=== PATIENT | female | born 1940 | race African-American/Black ===

== ENCOUNTER 2020-10-07 03:23 | Inpatient (IN) | payer MEDICARE, MEDICAID, SELFPAY ==
[2020-10-07] VITALS (20 sets, daily range): BP systolic 140–163; BP diastolic 50–97; PULSE 64–107; RESP 19–26; TEMP 35.7–37.1; O2SAT 90–98; BMI 38.6
--- NOTE | 2020-10-07 | ECHO_ITS ---
Patient Info Name: Patricia Sequeira Age: 80 years : 1940 Gender: Female Ht: 63 in Wt: 218 lbs BSA: 2.15 m2 HR: 95 bpm BP: 151 / 89 mmHg Heart Rhythm: Sinus Rhythm Technical Quality: Poor Exam Date: 10/07/2020 2:02 PM Exam Location: [facility] Pulmonary Exam Room: ICU 6 Patient Status: Inpatient Admit Date: 10/07/2020 Staff Ordering Physician: aKthy Miranda Competitive Intelligence Manager: Ly Del Cid RDCS Attending Provider: Len Anderson MD Referring Physician: Ruth PRATER; Exam Type: CA echo dop color flow w con Study Info Indications - chf chest pain Complete two-dimensional, color flow and Doppler transthoracic echocardiogram is performed with contrast to opacify the left ventricle and to improve the deliniation of the left ventricle endocardial borders. Contrast/Agitated Saline Contrast/Ag. Saline: Definity Amount: 2.00 ml Administered By: Savana John RN Existing IV Access: Yes IV Access Condition: patent with no signs of infiltration Reason for Poor Study: patient body habitus Summary 1. Technically difficult study with limited views despite definity contrast administration. Regional wall motion assessment limited due to poor endomyocardial border definition in several use, however, no clear focal wall motion abnormalities noted. 2. Left ventricular chamber dimension is normal. 3. Left ventricular systolic function is normal, estimated at 65-70%. 4. There is mildly increased left ventricular wall thickness. 5. There is trace tricuspid valve regurgitation. 6. No pulmonary hypertension, estimated pulmonary arterial systolic pressure is 30 mmHg. 7. There is a small to moderate sized pericardial effusion up to 1.1 cm without tamponade physiology. Fibrinous material is noted within the pericardial space. Left Ventricle Left ventricular chamber dimension is normal. Left ventricular systolic function is normal, estimated at 65-70%. There is mildly increased left ventricular wall thickness. The left ventricular diastolic function is grade I diastolic dysfunction. Technically difficult study with limited views despite definity contrast administration. Regional wall motion assessment limited due to poor endomyocardial border definition in several use, however, no clear focal wall motion abnormalities noted. Right Ventricle Right ventricular chamber dimension is normal. Right ventricular systolic function is normal. Left Atria Left atrial chamber dimension is normal. Right Atria Right atrial chamber dimension is normal. Aortic Valve The aortic valve is not well visualized. There is no aortic valve stenosis. Pulmonic Valve The pulmonic valve is not well visualized. Mitral Valve The mitral valve has not well visualized. Tricuspid Valve The tricuspid valve leaflets are not well visualized. There is trace tricuspid valve regurgitation. No pulmonary hypertension, estimated pulmonary arterial systolic pressure is 30 mmHg. Pericardium/Pleural The pericardium appears normal. There is a small to moderate sized pericardial effusion up to 1.1 cm without tamponade physiology. Fibrinous material is noted within the pericardial space. Inferior Vena Cava Normal inferior vena cava with >50% collapse upon inspiration consistent with normal right atrial pressure, 5 mmHg. Aorta The aortic root size at the sinus of Valsalva is normal. Left Ventricular Outflow Tract
--- NOTE | ~2020-10-07 | XR_ITS ---
EXAMINATION: XR chest 1V portable DATE: 10/07/2020 03:52 INDICATION: Chest pain. TECHNIQUE: A single frontal view of the chest was obtained. COMPARISON: Chest 2 views 01/31/2016 FINDINGS: There is a diffuse interstitial pattern in the lungs, consistent with mild pulmonary edema. No pleural effusion or pneumothorax. The heart size is normal. Widening of the superior mediastinum may be secondary to anteroposterior technique and mediastinal lipomatosis. IMPRESSION: 1. Mild pulmonary edema. Reviewed, dictated and finalized at location A. IMPRESSION: 1. Mild pulmonary edema.
--- NOTE | 2020-10-07 03:30 | ECG_ITS ---
Measurements Intervals [place] Rate: 83 P: 54 CO: 149 QRS: 10 QRSD: 82 T: 25 QT: 378 QTc: 445 Interpretive Statements SINUS RHYTHM BASELINE ARTIFACT- I, III, AVL, V3, V5 NORMAL ECG Electronically Signed On 10-07-2020 6:32:02 CDT by Linwood Botello D.O.
--- NOTE | 2020-10-07 03:31 | ED.CHESTPAIN ---
HPI - Chest Pain General Chief Complaint: Chest Pain Stated Complaint: cp Time Seen by Provider: 10/07/20 03:30 Source: patient Mode of arrival: ambulatory Limitations: no limitations History of Present Illness HPI narrative: Patient is an 80-year-old female complaining of chest pain, midsternal, tightness, 10, nonradiating started approximately 2 hours prior to arrival. Upon arrival to the emergency room patient's chest pain had resolved. Patient denies any shortness of breath, abdominal pain, nausea, vomiting, diaphoresis, fever or chills. Related Data Home Medications Medication Instructions Recorded Confirmed naproxen 500 mg PO BID 10/07/20 pantoprazole 40 mg PO QAM 10/07/20 perphenazine 2 mg PO TID 10/07/20 rosuvastatin mg 10/07/20 Allergies Allergy/AdvReac Type Severity Reaction Status Date / Time Penicillins Allergy Unknown Itching Verified 10/07/20 03:51 Review of Systems Review of Systems: All systems reviewed & are unremarkable except as noted in HPI and below Constitutional: Constitutional: Denies body ache(s), Denies chills, Denies excessive sweating, Denies fatigue, Denies fever(s), Denies headache(s), Denies lethargy, Denies malaise, Denies weakness and Denies weight loss Eyes: Eyes: Denies blurry vision, Denies change in vision and Denies loss of vision ENT: Denies dizziness, Denies ear discharge, Denies headache(s), Denies lip swelling, Denies epistaxis, Denies nasal congestion, Denies neck pain, Denies throat swelling and Denies tongue swelling Cardiovascular: Cardiovascular: Denies diaphoresis, Denies rapid heart rate, Denies edema, Denies irregular heart rhythm, Denies lightheadedness, Denies palpitations, Denies dyspnea and Denies dyspnea on exertion Respiratory: Respiratory: Denies chest congestion, Denies cough, Denies hemoptysis, Denies dyspnea and Denies dyspnea on exertion Gastrointestinal: Gastrointestinal: Denies abdominal pain, Denies melena, Denies hematochezia, Denies diarrhea, Denies nausea, Denies vomiting and Denies hematemesis Musculoskeletal: Musculoskeletal: Denies abnormal gait, Denies deformity, Denies joint swelling, Denies limited range of motion, Denies neck pain and Denies numbness Neurologic: Denies Abnormal speech present, Denies abnormal gait, Denies confusion, Denies dizziness, Denies headache(s), Denies focal weakness, Denies loss of vision, Denies numbness, Denies Other visual disturbances, Denies Sensory deficit (Neuro) and Denies weakness Psychiatric: Psychiatric: Denies confusion, Denies depression, Denies auditory hallucinations, Denies homicidal ideation and Denies suicidal ideation Endocrine: Endocrine: Denies cold intolerance, Denies excessive sweating, Denies fatigue, Denies heat intolerance and Denies palpitations Hematologic/Lymphatic: Hematologic/Lymphatic: Denies easy bleeding and Denies easy bruising Allergic/Immunologic: Allergic/Immunologic: Denies lip swelling, Denies throat swelling and Denies tongue swelling PMFSH Comments Past medical history: Diabetes, CHF, COPD, blindness Family history: Noncontributory Social history: Non-smoker, no EtOH use, lives at home Exam Const: General: cooperative, healthy appearing, comfortable, no acute distress, well developed, alert and awake; No confusion Orientation/consciousness: oriented to person, oriented to place, oriented to time, patient oriented x3 and No confusion Limitations: no limitations HENMT: Head: normal to inspection, normocephalic and atraumatic Ears: hearing grossly normal bilaterally, TM normal on the right and TM normal on the left General nose exam: Normal external nose present, Normal nares present and No nasal discharge present Face and sinus: normal facial exam Mouth: Yes Normal oral and palatal mucosa present, Yes lip normal, Yes tongue normal and Yes oropharynx normal Throat: posterior oropharynx normal, tonsils normal and uvula midline Eyes: General: appearance normal, both eyes
[2020-10-07] MEDS: ASPIRIN 81 MG CHEWABLE TABLET 324 MG PO (03:39)
[2020-10-07] MEDS: NITROGLYCERIN OINTMENT 1 INCH DOSE TRANSDERM (03:40)
[2020-10-07 03:55] LABS: Basophils Percent Auto 0.7 % (0.2-1.2); Eosinophils Absolute Auto 0.2 K/mm3 (0-0.3); Eosinophils Percent Auto 2.6 % (0-4.4); Hematocrit 34.4 % (37.0-47.0); Hemoglobin 10.5 g/dL (12.0-15.0); Immature Granulocyte Absolute 0.02 K/mm3 (0.00-0.031); Immature Granulocyte Percent A 0.3 % (0-0.5); Lymphocytes Absolute Auto 1.44 K/mm3 (0.9-3.2); Lymphocytes Percent Auto 23.4 % (18.3-44.2); Mean Corpuscular HGB Conc 30.5 g/dl (32-36); Mean Corpuscular Hemoglobin 27.1 pg (26-34); Mean Corpuscular Volume 88.7 fl (80-100); Mean Platelet Volume 11.1 fl (7.4-10.4); Monocytes Absolute Auto 0.9 K/mm3 (0.1-0.6); Monocytes Percent Auto 14.6 % (2.6-8.5); Neutrophils Absolute Auto 3.6 K/mm3 (1.3-6.7); Neutrophils Percent Auto 58.4 % (45.5-73.1); Platelet Count Result 267 k/mm3 (150-375); Red Blood Count 3.88 M/mm3 (4.2-5.4); Red Cell Distribution Width 14.9 % (11.5-14.5); White Blood Count 6.2 K/mm3 (4.5-10.0)
[2020-10-07 04:07] LABS: Anion Gap 5 mmol/L (8-16); Blood Urea Nitrogen 18 mg/dL (7-17); Calcium 9.1 mg/dL (8.4-10.2); Carbon Dioxide 31 mmol/L (22-30); Chloride 99 mmol/L (98-107); Estimated CRCL calculation 36 ml/min; Estimated Glomerular Filt Rate 43; Glucose 397 mg/dL (65-105); Potassium 4.3 mmol/L (3.4-5.0); Sodium 135 mmol/L (137-145)
[2020-10-07 04:16] LABS: INR 0.9; Prothrombin Time 12.5 Seconds (11.1-14.7)
[2020-10-07 04:17] LABS: Partial Thromboplastin Time 27.7 SECONDS (22.3-36.8)
[2020-10-07 04:20] LABS: NT Pro B Type Natriuretic Pept 56 pg/mL (5-100); Troponin I < 0.012 ng/mL (0.000-0.034)
--- NOTE | 2020-10-07 06:45 | ADMGEN ---
This patient, Patricia Sequeira, was admitted to Intensive Care Unit-6 on 10/08/2019 at 0635. Patient/family oriented to hospital policies and general routines including ID bracelet, bed and alarms, visiting hours, pain management, procedures, bathroom and other care routines, personal items, smoking policy, room service/diet, and visiting hours. Information on how to activate the Rapid Response Team has been discussed. Patient/Family are encouraged to report perceived risks to care and to ask questions if they do not understand what they are told or what they should do.
[2020-10-07 07:15] LABS: Troponin I < 0.012 ng/mL (0.000-0.034)
[2020-10-07 08:14] LABS: Glucose Point of Care 367 mg/dl (65-105)
[2020-10-07] MEDS: INSULIN ASPART (*BKC) 100 UNITS/ML 8 UNITS SUB-Q (09:23)
[2020-10-07 09:49] LABS: Troponin I < 0.012 ng/mL (0.000-0.034)
--- NOTE | 2020-10-07 10:31 | PM.CNCAR ---
Assessment and Plan Assessment and plan (1) Chest pain: Qualifiers: Chest pain type: unspecified Qualified Code(s): R07.9 - Chest pain, unspecified Code(s): R07.9 - Chest pain, unspecified Status: Acute Assessment and Plan: Her chest pain symptoms are atypical. EKG reviewed and analyzed - did not show any significant pathology, negative serial troponins indicate that this chest pain is likely not related to ACS. She is not experiencing any chest pain at this time. Will review echocardiogram. She should follow up as an outpatient with her patient navigator Dr. Wilson. Discharge disposition per primary service. (2) Hyperglycemia due to type 2 diabetes mellitus: Qualifiers: Diabetes mellitus fdc insulin use: unspecified buttermilk drier operator insulin use status Qualified Code(s): E11.65 - Type 2 diabetes mellitus with hyperglycemia Code(s): E11.65 - Type 2 diabetes mellitus with hyperglycemia Status: Acute Assessment and Plan: Blood glucose remains elevated at 367 this morning. Per the daughter's report her hemoglobin A1c is ?all over the place? indicating that her diabetes is poorly controlled and stating her last hemoglobin A1c was in the 's. Management per primary team. (3) Congestive heart failure (CHF): Qualifiers: Heart failure chronicity: unspecified Heart failure type: unspecified Qualified Code(s): I50.9 - Heart failure, unspecified Code(s): I50.9 - Heart failure, unspecified Status: Acute Assessment and Plan: Diagnosis per report of patient's daughter. Uncertain of the etiology or severity of this problem. She does not have any clinical signs of CHF exacerbation at this time aside from reported increased shortness of breath with exertion. Unsure if this is related to her chronic lung disease or congestive heart failure. Will order a echocardiogram to assess heart function. 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 Quit in 2019. Oxygen saturation 90% on 2L O2. Wears CPAP at night. History of Present Illness History of Present Illness Consult date/time: 10/07/20 10:31 Cardiology consult at the request of Dr. Velasquez for our opinion regarding chest pain. Patient is an 80-year-old female with medical history significant for COPD on home O2, diabetes mellitus type 2, congestive heart failure, and total blindness following cataract surgery about 20 years ago. She presented to the emergency department after 2 episodes of chest pain while she was at home lying in bed. She states that each of these episodes lasted for about 15 minutes and resolved without any intervention aside from moving from a lying to a seated position on the edge of the bed. She reports the pain being 6/10 at its worst. She is unable to give descriptors of the pain but states, ?it just hurt real bad.? She states the pain was in her upper left chest and extended to her upper left arm. She says is uncertain if this was gas pain as she has not had a bowel movement in 1 week. She also knows that she had 1 episode similar to this about 1 week ago but did not seek care at that time. Her pain had resolved by the time she presented to the emergency department and has not returned. She denies palpitations, orthopnea, paroxysmal nocturnal dyspnea. She states that she sometimes has swelling in her ankles and feet and she thinks this is associated with high blood glucose levels. She also endorses easy fatigability noting that she becomes short of breath while walking to the bathroom in her house. She states that the shortness of breath has worsened over the past week. Sh
[2020-10-07 12:18] LABS: Glucose Point of Care 378 mg/dl (65-105)
[2020-10-07] MEDS: INSULIN ASPART (*BKC) 100 UNITS/ML SUB-Q ×2 (12:30→16:41)
[2020-10-07] MEDS: PERFLUTREN LIPID MICROSPHERES 1.5 ML VIAL DILUTED TO 10 ML TOTAL VOLUME IV PUSH (14:38)
[2020-10-07 16:19] LABS: Glucose Point of Care 346 mg/dl (65-105)
[2020-10-07] MEDS: PERPHENAZINE 2 MG TABLET PO (16:43)
--- NOTE | 2020-10-07 17:49 | PM.IMHP ---
H&P: HPI History of Present Illness Date/Time: 10/07/20 17:49 Chest pain Chest pain midsternal, tightness, 6/10, nonradiating. Pt states she has a cough and chest pain thinks it was bronchitis, pt has some chest congestion. Pt son has had a URI. Pt is legally blind. H/o COPD on home O2, diabetes mellitus type 2, congestive heart failure, and total blindness following cataract surgery about 20 years ago. Pt had a echo showing - 3. Left ventricular systolic function is normal, estimated at 65-70%. 4. There is mildly increased left ventricular wall thickness. 5. There is trace tricuspid valve regurgitation. 6. No pulmonary hypertension, estimated pulmonary arterial systolic pressure is 30 mmHg. 7. There is a small to moderate sized pericardial effusion up to 1.1 cm without tamponade physiology. PT had CXr shows mild pulmonary edema Chief Complaint: Chest pain Review of Systems Review of Systems: All systems reviewed & are unremarkable except as noted in HPI and below PMFSH Family History Family History Father Cerebrovascular accident Mother Chronic bronchitis Social History Social History Smoking packs per day: 0.5 Smoking cigarettes per day: 10.0 Years smoked: 64 Smoking pack-years: 32.00 Smoking status: Former smoker Smoking end date: 10/07/18 Alcohol intake: never Substance use: never Spiritual care concerns: No Meds Home Medications and Allergies Home Medications Medication Instructions Recorded Confirmed Type albuterol sulfate [Ventolin HFA] 2 puff INHALATION Q4H PRN 10/07/20 10/07/20 History ferrous sulfate 325 mg PO DAILY 10/07/20 10/07/20 History fluticasone furoate-vilanterol 1 inh INHALATION DAILY 10/07/20 10/07/20 History [Breo Ellipta] furosemide 80 mg PO DAILY 10/07/20 10/07/20 History insulin degludec [Tresiba U-100 60 unit SUBCUT HS 10/07/20 10/07/20 History Insulin] insulin lispro [Humalog KwikPen See Rx Instructions .ROUTE .COMPLEX 10/07/20 10/07/20 History Insulin] naproxen 500 mg PO BID PRN 10/07/20 10/07/20 History olmesartan 40 mg PO DAILY 10/07/20 10/07/20 History pantoprazole 40 mg PO QAM 10/07/20 10/07/20 History perphenazine 2 mg PO TID 10/07/20 10/07/20 History rosuvastatin 10 mg PO DAILY 10/07/20 10/07/20 History tiotropium bromide [Spiriva with 1 cap INHALATION DAILY 10/07/20 10/07/20 History HandiHaler] Allergies Allergy/AdvReac Type Severity Reaction Status Date / Time Penicillins Allergy Unknown Itching Verified 10/07/20 03:51 Vital Signs Vital Signs - 24 hr 10/07/20 03:24 10/07/20 03:42 10/07/20 03:50 Temperature 36.6 C Pulse Rate 88 96 Respiratory Rate 20 Blood Pressure 157/80 H Pulse Oximetry 94 97 10/07/20 05:09 10/07/20 06:12 10/07/20 06:37 Temperature 36.6 C Pulse Rate 94 97 93 Respiratory Rate 24 H 23 H 26 H Blood Pressure 143/50 H 163/83 H 149/97 H Pulse Oximetry 98 96 94 10/07/20 08:00 10/07/20 10:00 10/07/20 11:35 Temperature 36.6 C Pulse Rate 96 98 71 Respiratory Rate 22 H Blood Pressure 146/68 H Pulse Oximetry 96 95 10/07/20 12:00 10/07/20 14:00 10/07/20 16:00 Temperature 37.1 C 36.6 C Pulse Rate 107 H 95 92 Respiratory Rate 21 H 20 Blood Pressure 151/89 H 158/69 H Pulse Oximetry 96 95 Exam Const: General: well developed Nutritional Appearance: well nourished HENMT: Head: normocephalic Eyes: General: appearance normal, both eyes and all related structures Pupils: Equal, round and reactive pupils present Neck: Neck: supple Chest: Chest palpation & inspection: normal inspection of the chest Resp: Effort & Inspection: normal respiratory effort Auscultation: wheezes and other (Bilateral wheezes ) Cardio: Jugular venous distension: no JVD Rhythm: regular rhythm Heart sounds: S1 normal heart sound present and S2 normal heart sound present GI
[2020-10-07] MEDS: ALBUTEROL SULFATE NEB 2.5 MG/0.5 ML INH INHALATION (19:11)
[2020-10-07] MEDS: INSULIN GLARGINE (*BKC) 100 UNITS/ML 60 UNITS SUB-Q (20:23)
[2020-10-07 20:48] LABS: Glucose Point of Care 408 mg/dl (65-105)
--- NOTE | 2020-10-07 21:15 | PC.NURSE ---
RECEIVED PT FROM ICU PER BED. VOICES NO C/O, O2 6L NC ON
--- NOTE | 2020-10-07 21:19 | PC.NURSE ---
This patient, Patricia Sequeira, was transferred to [facility] on 10/07/20 at 2119. Personal belongings sent with patient. Report given to Accepting RN. Appropriate documentation sent with patient.
[2020-10-08] VITALS (17 sets, daily range): BP systolic 115–135; BP diastolic 54–75; PULSE 86–109; RESP 18–24; TEMP 36.1–36.5; O2SAT 88–100
[2020-10-08] MEDS: ALBUTEROL SULFATE NEB 2.5 MG/0.5 ML INH INHALATION ×4 (02:45→20:04)
[2020-10-08 07:51] LABS: Glucose Point of Care 293 mg/dl (65-105)
[2020-10-08] MEDS: INSULIN ASPART (*BKC) 100 UNITS/ML SUB-Q ×3 (08:40→12:03)
[2020-10-08] MEDS: FERROUS SULFATE 324 MG TABLET PO (08:45)
[2020-10-08] MEDS: OLMESARTAN MEDOXOMIL 20 MG TABLET 40 MG PO (08:45)
[2020-10-08] MEDS: FUROSEMIDE 80 MG TABLET PO (08:45)
[2020-10-08] MEDS: PERPHENAZINE 2 MG TABLET PO ×3 (08:46→17:24)
[2020-10-08] MEDS: PANTOPRAZOLE 40 MG TABLET PO (08:46)
[2020-10-08] MEDS: ROSUVASTATIN 10 MG TABLET PO (08:46)
[2020-10-08] MEDS: predniSONE 10 MG TABLET PO (08:46)
--- NOTE | 2020-10-08 09:20 | PM.PNCARD ---
Progress Note: A&P Assessment and Plan (1) Chest pain: Qualifiers: Chest pain type: unspecified Qualified Code(s): R07.9 - Chest pain, unspecified Code(s): R07.9 - Chest pain, unspecified Status: Acute Assessment and Plan: Her chest pain symptoms are atypical. EKG reviewed and analyzed - did not show any significant pathology, negative serial troponins indicate that this chest pain is likely not related to ACS. She is not experiencing any chest pain at this time. No indication for further ischemic workup at this time. Echocardiogram from 10/07/2020 reviewed. She should follow up as an outpatient with her rate clerk passenger Dr. Wilson. Discharge disposition per primary service. (2) Hyperglycemia due to type 2 diabetes mellitus: Qualifiers: Diabetes mellitus director long term care insulin use: unspecified director long term care insulin use status Qualified Code(s): E11.65 - Type 2 diabetes mellitus with hyperglycemia Code(s): E11.65 - Type 2 diabetes mellitus with hyperglycemia Status: Acute Assessment and Plan: Management per primary team. (3) Congestive heart failure (CHF): Qualifiers: Heart failure chronicity: unspecified Heart failure type: unspecified Qualified Code(s): I50.9 - Heart failure, unspecified Code(s): I50.9 - Heart failure, unspecified Status: Acute Assessment and Plan: Diagnosis per report of patient's daughter. Uncertain of the etiology or severity of this problem. She does not have any clinical signs of CHF exacerbation at this time aside from reported increased shortness of breath with exertion. Unsure if this is related to her chronic lung disease or congestive heart failure. Will order a echocardiogram to assess heart function. She does not exhibit any clinical signs of heart failure. Echocardiogram from 10/07/2020 showed normal left ventricular systolic function with an ejection fraction estimated at 65 to 70%. She is to follow up with her rate clerk passenger as an outpatient. (4) COPD (chronic obstructive pulmonary disease): Qualifiers: COPD type: unspecified COPD Qualified Code(s): J44.9 - Chronic obstructive pulmonary disease, unspecified Code(s): J44.9 - Chronic obstructive pulmonary disease, unspecified Status: Acute Assessment and Plan: Oxygen saturation 95% on 2L O2. Wears CPAP at night. Management per primary service. Subjective Date/time seen: Date of service 05/21/21 09:20: Patient is sitting up in the chair eating breakfast at the time of exam. She appears comfortable. Patient states she is feeling well today and denies any complaints aside from some nasal congestion. She denies any chest pain, palpitations, orthopnea, swelling. Review of Systems Constitutional: Constitutional: Reports as per HPI and Denies difficulty sleeping Eyes: Eyes: Reports as per HPI and Reports no additional eye complaints ENT: Reports as per HPI, Reports nasal congestion, Reports nasal discharge and Denies neck pain Cardiovascular: Cardiovascular: Reports as per HPI, Reports no additional cardiovascular complaints, Denies chest pain, Denies diaphoresis, Denies leg edema, Denies lightheadedness, Denies palpitations and Reports dyspnea on exertion Respiratory: Respiratory: Reports as per HPI, Denies cough, Reports dyspnea on exertion and Reports wheezing Gastrointestinal: Gastrointestinal: Reports as per HPI, Reports no additional gastrointestinal complaints, Denies abdominal pain, Reports constipation, Denies nausea and Denies vomiting Genitourinary: Genitourinary: Reports no additional female genitourinary complaints and Reports as per HPI Musculoskeletal: Musculoskeletal: Reports as per HPI, Denies back pain and Denies neck pain Integumentary/Breasts: Skin/Breast: Reports as per HPI, Denies dry skin, Denies pruritus and Denies wounds Neurologic: Reports as per HPI, Denies Abnormal speech present, Denies beh
[2020-10-08 11:50] LABS: Glucose Point of Care 495 mg/dl (65-105)
--- NOTE | 2020-10-08 12:05 | PM.IMPN ---
Progress Note: A&P Assessment and Plan (1) Chest pain: Qualifiers: Chest pain type: unspecified Qualified Code(s): R07.9 - Chest pain, unspecified Code(s): R07.9 - Chest pain, unspecified Status: Acute Assessment and Plan: Troponin x3 are negative, chest pain appears atypical. Pt seen by cardiology. (2) Hyperglycemia due to type 2 diabetes mellitus: Qualifiers: Diabetes mellitus lobsterman insulin use: unspecified skilled nursing insulin use status Qualified Code(s): E11.65 - Type 2 diabetes mellitus with hyperglycemia Code(s): E11.65 - Type 2 diabetes mellitus with hyperglycemia Status: Acute Assessment and Plan: Continue to watch Sugars Accuchecks, SSI, continue patients own medications (3) Congestive heart failure (CHF): Qualifiers: Heart failure chronicity: unspecified Heart failure type: unspecified Qualified Code(s): I50.9 - Heart failure, unspecified Code(s): I50.9 - Heart failure, unspecified Status: Acute Assessment and Plan: Continue lasix 80 mg po daily, pt seen by cardiology. (4) COPD (chronic obstructive pulmonary disease): Qualifiers: COPD type: unspecified COPD Qualified Code(s): J44.9 - Chronic obstructive pulmonary disease, unspecified Code(s): J44.9 - Chronic obstructive pulmonary disease, unspecified Status: Acute Assessment and Plan: Restart breathing treatments, continue IV abx and low dose steroids for bronchitis. add nasal spray for nasal congestion (5) Sleep apnea: Code(s): G47.30 - Sleep apnea, unspecified Status: Acute Assessment and Plan: Pt uses CPAP at night Subjective Date/time seen: 10/08/20 12:05 Interval history: Pt still complaining of blocked nose and chest congestion, thinks it was bronchitis, pt has some chest congestion. Pt son has had a URI. Pt is legally blind. H/o COPD on home O2, diabetes mellitus type 2, congestive heart failure, and total blindness following cataract surgery about 20 years ago. Pt chest pain not cardiac related. Review of Systems Review of Systems: All systems reviewed & are unremarkable except as noted in HPI and below Exam Const: General: well developed Nutritional Appearance: well nourished HENMT: Head: normocephalic Eyes: General: appearance normal, both eyes and all related structures Pupils: Equal, round and reactive pupils present Neck: Neck: supple Chest: Chest palpation & inspection: normal inspection of the chest Resp: Effort & Inspection: normal respiratory effort Auscultation: wheezes and other (Bilateral wheezes ) Cardio: Jugular venous distension: no JVD Rhythm: regular rhythm Heart sounds: S1 normal heart sound present and S2 normal heart sound present GI: Inspection: normal to inspection Auscultation: normal bowel sounds Skin: General skin exam: normal color and dry skin Neuro: Cranial nerves: Yes CN's II-XII intact bilaterally and Yes Equal, round and reactive pupils present Cognition (Neuro): normal cognition Speech: normal speech Motor exam (neuro): 5/5 motor strength present throughout Extrem: General: normal to inspection Psych: Appearance: grossly normal Mental Status: mental status grossly normal Objective Data Vital Signs Vital Signs: Vital Signs - 24 hr 10/07/20 14:00 10/07/20 16:00 10/07/20 19:12 Temperature 36.6 C Pulse Rate 95 92 92 Respiratory Rate 20 20 Blood Pressure 158/69 H Pulse Oximetry 95 10/07/20 19:21 10/07/20 19:22 10/07/20 20:00 Temperature Pulse Rate 94 92 Respiratory Rate 20 Blood Pressure Pulse Oximetry 93 90 10/07/20 21:14 10/07/20 23:22 10/07/20 23:49 Temperature 35.7 C L Pulse Rate 64 71 73 Respiratory Rate 22 H 19 Blood Pressure 140/58 L Pulse Oximetry 90 92 97 10/07/20 23:54 10/08/20 02:45 10/08/20 02:58 Temperature 35.9 C L Pulse Rate 96 87 86 Respiratory Rate 22 H 22 H 22 H Blood
[2020-10-08 14:20] LABS: Glucose Point of Care > 500 mg/dl (65-105)
[2020-10-08] MEDS: INSULIN ASPART (*BKC) 100 UNITS/ML 10 UNITS SUB-Q ×2 (14:27→16:50)
[2020-10-08 16:28] LABS: Glucose Point of Care 462 mg/dl (65-105)
[2020-10-08 18:40] LABS: Glucose Point of Care 473 mg/dl (65-105)
[2020-10-08] MEDS: INSULIN ASPART (*BKC) 100 UNITS/ML 6 UNITS SUB-Q ×2 (18:55→21:02)
[2020-10-08] MEDS: INSULIN GLARGINE (*BKC) 100 UNITS/ML 65 UNITS SUB-Q (20:42)
[2020-10-08] MEDS: FLUTICASONE PROPIONATE 0.05% NA SPR 16 GM BTL (*BKC) 1 SPRAY NASAL (20:42)
[2020-10-08 21:47] LABS: Glucose Point of Care 455 mg/dl (65-105)
[2020-10-09] VITALS (15 sets, daily range): BP systolic 110–123; BP diastolic 45–50; PULSE 82–94; RESP 16–20; TEMP 35.6–36.1; O2SAT 90–99
[2020-10-09] MEDS: ALBUTEROL SULFATE NEB 2.5 MG/0.5 ML INH INHALATION ×3 (01:16→19:46)
[2020-10-09 05:47] LABS: Glucose Point of Care 308 mg/dl (65-105)
[2020-10-09 08:09] LABS: Glucose Point of Care 301 mg/dl (65-105)
[2020-10-09] MEDS: INSULIN ASPART (*BKC) 100 UNITS/ML SUB-Q ×3 (08:38→17:27)
[2020-10-09] MEDS: PERPHENAZINE 2 MG TABLET PO ×2 (08:42→12:23)
[2020-10-09] MEDS: OLMESARTAN MEDOXOMIL 20 MG TABLET 40 MG PO (08:42)
[2020-10-09] MEDS: FERROUS SULFATE 324 MG TABLET PO (08:42)
[2020-10-09] MEDS: PANTOPRAZOLE 40 MG TABLET PO (08:42)
[2020-10-09] MEDS: FUROSEMIDE 80 MG TABLET PO (08:42)
[2020-10-09] MEDS: ROSUVASTATIN 10 MG TABLET PO (08:43)
[2020-10-09] MEDS: NAPROXEN 500 MG TABLET PO (08:43)
--- NOTE | 2020-10-09 11:16 | PM.IMPN ---
Progress Note: A&P Assessment and Plan (1) Chest pain: Qualifiers: Chest pain type: unspecified Qualified Code(s): R07.9 - Chest pain, unspecified Code(s): R07.9 - Chest pain, unspecified Status: Acute Assessment and Plan: Troponin x3 are negative, chest pain appears atypical. Pt seen by cardiology. (2) Hyperglycemia due to type 2 diabetes mellitus: Qualifiers: Diabetes mellitus longwall foreman insulin use: unspecified longwall foreman insulin use status Qualified Code(s): E11.65 - Type 2 diabetes mellitus with hyperglycemia Code(s): E11.65 - Type 2 diabetes mellitus with hyperglycemia Status: Acute Assessment and Plan: Continue to watch Sugars Accuchecks, SSI, continue patients own medications (3) Congestive heart failure (CHF): Qualifiers: Heart failure chronicity: unspecified Heart failure type: unspecified Qualified Code(s): I50.9 - Heart failure, unspecified Code(s): I50.9 - Heart failure, unspecified Status: Acute Assessment and Plan: Continue lasix 80 mg po daily, pt seen by cardiology. (4) COPD (chronic obstructive pulmonary disease): Qualifiers: COPD type: unspecified COPD Qualified Code(s): J44.9 - Chronic obstructive pulmonary disease, unspecified Code(s): J44.9 - Chronic obstructive pulmonary disease, unspecified Status: Acute Assessment and Plan: Restart breathing treatments, continue IV abx for bronchitis. add nasal spray for nasal congestion (5) Sleep apnea: Code(s): G47.30 - Sleep apnea, unspecified Status: Acute Assessment and Plan: Pt uses CPAP at night Subjective Date/time seen: 10/09/20 11:16 Interval history: Pt still complaining of blocked nose and chest congestion, thinks it was bronchitis, pt has some chest congestion. Pt son has had a URI. Pt is legally blind. H/o COPD on home O2, diabetes mellitus type 2, congestive heart failure, and total blindness following cataract surgery about 20 years ago. Pt chest pain not cardiac related. Pt still wheezy and congested today. Review of Systems Review of Systems: All systems reviewed & are unremarkable except as noted in HPI and below Exam Const: General: well developed Nutritional Appearance: well nourished HENMT: Head: normocephalic Eyes: General: appearance normal, both eyes and all related structures Pupils: Equal, round and reactive pupils present Neck: Neck: supple Chest: Chest palpation & inspection: normal inspection of the chest Resp: Effort & Inspection: normal respiratory effort Auscultation: wheezes and other (Bilateral wheezes ) Cardio: Jugular venous distension: no JVD Rhythm: regular rhythm Heart sounds: S1 normal heart sound present and S2 normal heart sound present GI: Inspection: normal to inspection Auscultation: normal bowel sounds Skin: General skin exam: normal color and dry skin Neuro: Cranial nerves: Yes CN's II-XII intact bilaterally and Yes Equal, round and reactive pupils present Cognition (Neuro): normal cognition Speech: normal speech Motor exam (neuro): 5/5 motor strength present throughout Extrem: General: normal to inspection Psych: Appearance: grossly normal Mental Status: mental status grossly normal Objective Data Vital Signs Vital Signs: Vital Signs - 24 hr 10/08/20 14:36 10/08/20 14:40 10/08/20 16:00 Temperature 36.2 C L Pulse Rate 103 H 100 100 Respiratory Rate 20 20 20 Blood Pressure 115/55 L Pulse Oximetry 98 10/08/20 20:00 10/08/20 20:06 10/08/20 20:07 Temperature Pulse Rate 101 H Respiratory Rate 18 Blood Pressure Pulse Oximetry 98 94 10/08/20 20:18 10/08/20 21:24 10/08/20 22:25 Temperature 36.1 C L Pulse Rate 105 H 98 88 Respiratory Rate 18 20 20 Blood Pressure 123/54 L Pulse Oximetry 99 96 10/09/20 00:00 10/09/20 01:20 10/09/20 01:21 Temperature 36.0 C L Pulse Rate 94 85 85 Respiratory R
[2020-10-09 11:45] LABS: Glucose Point of Care 363 mg/dl (65-105)
[2020-10-09] MEDS: FLUTICASONE PROPIONATE 0.05% NA SPR 16 GM BTL (*BKC) 1 SPRAY NASAL ×2 (12:20→20:35)
--- NOTE | 2020-10-09 15:30 | PCRCNOTE ---
Window of time for administration has passed. See next scheduled administration.
[2020-10-09 16:58] LABS: Glucose Point of Care 301 mg/dl (65-105)
[2020-10-09] MEDS: INSULIN GLARGINE (*BKC) 100 UNITS/ML 65 UNITS SUB-Q (20:35)
[2020-10-09 20:50] LABS: Glucose Point of Care 394 mg/dl (65-105)
[2020-10-10] VITALS (10 sets, daily range): BP systolic 126–127; BP diastolic 48–71; PULSE 74–91; RESP 12–20; TEMP 36.4; O2SAT 93–100
[2020-10-10] MEDS: ALBUTEROL SULFATE NEB 2.5 MG/0.5 ML INH INHALATION ×3 (02:01→13:20)
[2020-10-10 08:14] LABS: Glucose Point of Care 205 mg/dl (65-105)
[2020-10-10] MEDS: FERROUS SULFATE 324 MG TABLET PO (08:49)
[2020-10-10] MEDS: FUROSEMIDE 80 MG TABLET PO (08:49)
[2020-10-10] MEDS: ROSUVASTATIN 10 MG TABLET PO (08:49)
[2020-10-10] MEDS: PANTOPRAZOLE 40 MG TABLET PO (08:49)
[2020-10-10] MEDS: OLMESARTAN MEDOXOMIL 20 MG TABLET 40 MG PO (08:49)
[2020-10-10] MEDS: FLUTICASONE PROPIONATE 0.05% NA SPR 16 GM BTL (*BKC) 1 SPRAY NASAL (08:49)
[2020-10-10] MEDS: PERPHENAZINE 2 MG TABLET PO ×2 (08:49→12:08)
[2020-10-10] MEDS: INSULIN ASPART (*BKC) 100 UNITS/ML SUB-Q ×2 (08:50→11:50)
--- NOTE | 2020-10-10 11:41 | PM.DS ---
DS: Admitting Diagnosis Admitting Diagnosis Admitting Diagnosis: CHEST PAIN DS: Discharge Diagnosis Discharge Diagnosis (1) Chest pain: Qualifiers: Chest pain type: unspecified Qualified Code(s): R07.9 - Chest pain, unspecified Code(s): R07.9 - Chest pain, unspecified Status: Acute Assessment and Plan: Troponin x3 are negative, chest pain appears atypical. Pt seen by cardiology. (2) Hyperglycemia due to type 2 diabetes mellitus: Qualifiers: Diabetes mellitus pathological technician insulin use: unspecified pathological technician insulin use status Qualified Code(s): E11.65 - Type 2 diabetes mellitus with hyperglycemia Code(s): E11.65 - Type 2 diabetes mellitus with hyperglycemia Status: Acute Assessment and Plan: Continue to watch Sugars Accuchecks, SSI, continue patients own medications (3) Congestive heart failure (CHF): Qualifiers: Heart failure chronicity: unspecified Heart failure type: unspecified Qualified Code(s): I50.9 - Heart failure, unspecified Code(s): I50.9 - Heart failure, unspecified Status: Acute Assessment and Plan: Continue lasix 80 mg po daily, pt seen by cardiology. (4) COPD (chronic obstructive pulmonary disease): Qualifiers: COPD type: unspecified COPD Qualified Code(s): J44.9 - Chronic obstructive pulmonary disease, unspecified Code(s): J44.9 - Chronic obstructive pulmonary disease, unspecified Status: Acute Assessment and Plan: Restart breathing treatments, continue IV abx for bronchitis. add nasal spray for nasal congestion. Pt can be discharged on oral doxycycline course. Pt feels better. (5) Sleep apnea: Code(s): G47.30 - Sleep apnea, unspecified Status: Acute Assessment and Plan: Pt uses CPAP at night DS: Summary Hospital Course Hospital Course: Pt still complaining of blocked nose and chest congestion, thinks it was bronchitis, pt has some chest congestion. Pt son has had a URI. Pt is legally blind. H/o COPD on home O2, diabetes mellitus type 2, congestive heart failure, and total blindness following cataract surgery about 20 years ago. Pt chest pain not cardiac related. Pt still wheezy and congested was treated with flonase and iv doxycyline pt feels alot better discharged home. Was started on steroids sugars went up so steroids were stopped sugars are stable on discharge. Time Spent with Patient Time attestation: Total time spent providing and/or coordinating discharge services:40 minutes on the day of discharge Exam Const: General: well developed Nutritional Appearance: well nourished HENMT: Head: normocephalic Eyes: General: appearance normal, both eyes and all related structures Pupils: Equal, round and reactive pupils present Neck: Neck: supple Chest: Chest palpation & inspection: normal inspection of the chest Resp: Effort & Inspection: normal respiratory effort Auscultation: clear to auscultation bilaterally Cardio: Jugular venous distension: no JVD Rhythm: regular rhythm Heart sounds: S1 normal heart sound present and S2 normal heart sound present GI: Inspection: normal to inspection Auscultation: normal bowel sounds Skin: General skin exam: normal color and dry skin Neuro: Cranial nerves: Yes CN's II-XII intact bilaterally and Yes Equal, round and reactive pupils present Cognition (Neuro): normal cognition Speech: normal speech Motor exam (neuro): 5/5 motor strength present throughout Extrem: General: normal to inspection Psych: Appearance: grossly normal Mental Status: mental status grossly normal DS: Data Data Completed and Pending Labs on day of discharge: Labs from last 24 hours 10/10/20 10/09/20 10/09/20 08:10 20:34 16:50 POC Capillary Glucose 205 H 394 H 301 H 10/09/20 11:39 POC Capillary Glucose 363 H Discharge Plan Discharge Attending physician on discharge: Caroline Bryan p
[2020-10-10 11:45] LABS: Glucose Point of Care 309 mg/dl (65-105)
[2020-10-10] MEDS: polyethylene glycoL 3350 17 GM POWD.PACK PO (11:49)
[2020-10-10 12:03] LABS: Anion Gap 3 mmol/L (8-16); Blood Urea Nitrogen 18 mg/dL (7-17); Calcium 9.3 mg/dL (8.4-10.2); Carbon Dioxide 31 mmol/L (22-30); Chloride 97 mmol/L (98-107); Estimated CRCL calculation 42 ml/min; Estimated Glomerular Filt Rate 53; Glucose 347 mg/dL (65-105); Potassium 4.2 mmol/L (3.4-5.0); Sodium 131 mmol/L (137-145)
== END 2020-10-10 14:18 | disposition home or self-care (01) | DRG 192 ==
LOC: ANHED 04:57 → ANHICU 06:01 → ANH2MED 21:10
PROVIDERS: Admitting Provider Internal Medicine; Emergency Provider Emergency Medicine; PCP Internal Medicine Infectious Disease; Visit Provider Family Medicine
DX: J44.0 Chronic obstructive pulmonary disease with (acute) lower respiratory infection (principal); R07.9 Chest pain, unspecified; E11.65 Type 2 diabetes mellitus with hyperglycemia; I50.9 Heart failure, unspecified; H54.7 Unspecified visual loss
CPT/HCPCS: 36415; 71045; 80048; 82948; 83880; 84484; 85025; 85610; 85730; 93005; 94002; 94003; 94640; 96365; 96366; 96375; 99285; A9270; C8929; G0378; J1815; J7512; Q9957

== ENCOUNTER 2020-11-23 17:00 | Emergency (ER) | payer MEDICARE, MEDICAID, SELFPAY ==
--- NOTE | ~2020-11-23 | XR_ITS ---
XR wrist RT min 3V 11/23/2020 17:47 Indication: Right wrist pain after fall out of bed Procedure: 4 Views right wrist Comparison: No prior studies for comparison. Findings: Osteopenia. Mild polyarticular osteoarthritis. No fracture or traumatic malalignment. No fo ernesto soft tissue abnormality. No foreign bodies. Impression: 1: No acute fracture. Reviewed, dictated and finalized at location A. Impression: 1: No acute fracture.
--- NOTE | ~2020-11-23 | XR_ITS ---
XR wrist LT min 3V 11/23/2020 17:47 Indication: Left wrist pain after fall Procedure: 4 views left wrist Comparison: No prior studies for comparison. Findings: Osteopenia. There is a healed fifth metacarpal fracture. Mild polyarticular osteoarthritis. No acute fracture or traumatic malalignment. No foreign bodies. Impression: 1: No acute fracture. Reviewed, dictated and finalized at location A. Impression: 1: No acute fracture.
[2020-11-23 17:25] VITALS: BP 148/74; PULSE 102; RESP 16; TEMP 36.7; O2SAT 100
[2020-11-23 20:16] VITALS: BP 134/72; PULSE 98; RESP 20; TEMP 36.4; O2SAT 100
--- NOTE | 2020-11-23 22:19 | ED.GENADULT ---
HPI - General Adult General Chief complaint: Unspecified Stated complaint: arm swelling Time Seen by Provider: 11/23/20 22:07 Source: patient and family Mode of arrival: ambulatory Limitations: no limitations History of Present Illness HPI narrative: Patient is 80 years old -[place] female presents with wrist pain bilaterally started 2 weeks ago after trying to get up from the floor pushing on her hands to get up. Patient went to [facility] 1 week ago and was diagnosed of arthritis. Patient still not back to normal 100%. Patient denies any fever, chills, nausea, vomiting. Related Data Home Medications Medication Instructions Recorded Confirmed Breo Ellipta 1 inh INHALATION DAILY 10/07/20 10/07/20 Spiriva with HandiHaler 1 cap INHALATION DAILY 10/07/20 10/07/20 Tresiba U-100 Insulin 60 unit SUBCUT HS 10/07/20 10/07/20 albuterol sulfate [Ventolin HFA] 2 puff INHALATION Q4H PRN 10/07/20 10/07/20 ferrous sulfate 325 mg PO DAILY 10/07/20 10/07/20 furosemide 80 mg PO DAILY 10/07/20 10/07/20 insulin lispro [Humalog KwikPen See Rx Instructions .ROUTE .COMPLEX 10/07/20 10/07/20 Insulin] naproxen 500 mg PO BID PRN 10/07/20 10/07/20 olmesartan 40 mg PO DAILY 10/07/20 10/07/20 pantoprazole 40 mg PO QAM 10/07/20 10/07/20 perphenazine 2 mg PO TID 10/07/20 10/07/20 rosuvastatin 10 mg PO DAILY 10/07/20 10/07/20 Allergies Allergy/AdvReac Type Severity Reaction Status Date / Time Penicillins Allergy Unknown Itching Verified 11/23/20 20:20 Review of Systems Review of Systems: Narrative: CONSTITUTIONAL: Denies fever, chills, or sweats. EYES: Denies visual changes, redness, or discharge. ENT: Denies rhinorrhea, congestion, sore throat, or otalgia. CARDIOVASCULAR: Denies chest pain, palpitations, or edema. RESPIRATORY: Denies cough or dyspnea. GASTROINTESTINAL: Denies abdominal pain, nausea, vomiting, or diarrhea. GENITOURINARY: Denies dysuria or hematuria. SKIN: Denies rash or itching. MUSCULOSKELETAL: Denies back pain, joint pain, or myalgia. NEUROLOGIC: Denies headache, numbness, or weakness. PSYCHIATRIC: Denies anxiety or depression. [facility] Family History Family History Father Cerebrovascular accident Mother Chronic bronchitis Social History Social History Smoking packs per day: 0.5 Smoking cigarettes per day: 10.0 Years smoked: 64 Smoking pack-years: 32.00 Smoking status: Former smoker Smoking end date: 10/07/18 Alcohol intake: never Substance use: never Spiritual care concerns: No Exam Narrative: Exam Narrative: General appearance: Well-developed, well-nourished Skin: Normal color Chest and respiratory: Airway patent, no respiratory distress, no accessory muscle use Heart: Regular rate/rhythm Abdomen: Soft, nontender, no organomegaly, quiet bowel sounds Vascular: Normal peripheral pulses, normal capillary refill. Musculoskeletal: Normal range of motion, nontender back, slight painful range of motion of the wrist bilaterally, no swelling, no deformity. Neurologic: Alert and oriented ?3, Course Course Emergency Course: Stable Vital Signs Vital signs: Vital Signs Temperature 36.7 C 11/23/20 17:25 Pulse Rate 102 H 11/23/20 17:25 Respiratory Rate 16 11/23/20 17:25 Blood Pressure 148/74 H 11/23/20 17:25 Pulse Oximetry 100 11/23/20 17:25 Temperature 36.4 C L 11/23/20 20:16 Pulse Rate 98 11/23/20 20:16 Respiratory Rate 20 11/23/20 20:16 Blood Pressure 134/72 11/23/20 20:16 Pulse Oximetry 100 11/23/20 20:16 Medical Decision Making MDM Narrative Medical decision making narra
[2020-11-23 23:03] VITALS: BP 117/65; PULSE 79; RESP 18; O2SAT 98
== END 2020-11-23 23:05 | disposition home or self-care (01) ==
PROVIDERS: Emergency Provider Emergency Medicine; PCP Internal Medicine Infectious Disease
DX: S66.912A Strain of unspecified muscle, fascia and tendon at wrist and hand level, left hand, initial encounter (principal); S63.502A Unspecified sprain of left wrist, initial encounter; S63.501A Unspecified sprain of right wrist, initial encounter; S66.911A Strain of unspecified muscle, fascia and tendon at wrist and hand level, right hand, initial encounter; Z87.891 Personal history of nicotine dependence; Z79.4 Long term (current) use of insulin; M19.032 Primary osteoarthritis, left wrist; M19.031 Primary osteoarthritis, right wrist; M85.88 Other specified disorders of bone density and structure, other site
CPT/HCPCS: 73110; 99284

== ENCOUNTER 2020-12-24 06:03 | Emergency (ER) | payer MEDICARE, MEDICAID, SELFPAY ==
--- NOTE | ~2020-12-24 | CT_ITS ---
EXAMINATION: CT abdomen pelvis wo con, CT lumbar spine wo con DATE: 12/24/2020 06:51 INDICATION: Abdominal distention. Low back pain. TECHNIQUE: Computed tomography (CT) of the abdomen and pelvis was performed without intravenous contr ast. Automated exposure control and iterative reconstruction technique were employed. The dose-length product was 1259.01 mGy-cm. COMPARISON: None FINDINGS: Abdomen and pelvis: Mild dependent atelectasis in the right lower lobe. Heart size is normal. Atherosclerotic coronary ar ramy calcification. No pericardial or pleural effusion. Small sliding-type hiatal hernia. Diffuse hep atic steatosis with small regions of focal fatty sparing. A couple well-defined low-attenuation likel y hepatic cysts or hemangiomas in the right hepatic lobe the larger measuring 2.5 cm. 1.3 cm right ad renal nodule with relatively low-attenuation not absolutely diagnostic suggestive of an statistically most likely to represent an adenoma. Spleen, pancreas, left adrenal gland and right kidney are lizzy l. 1.8 cm left renal cyst. Bladder, uterus and bilateral adnexa are unremarkable. There is mild colon ic diverticulosis with a sigmoid predominance. There is no adjacent inflammatory change to suggest d iverticulitis. Moderate to large amount of colonic stool which could be seen with constipation. Lizzy l small bowel and appendix. No free intraperitoneal gas or fluid. No pathologically enlarged abdomina l or pelvic lymphadenopathy. Lumbar spine: Alignment is normal. Vertebral body heights are normal. Mild disc height loss at L4-L5. The following disc levels are specifically discussed: T11-T12: Disc is mildly bulging. There is mild bilateral facet joint osteoarthritis. There is no neur al foraminal stenosis. There is no central canal stenosis. T12-L1: The disc does not extend beyond the endplate margin. There is mild bilateral facet joint oste oarthritis. There is no neural foraminal stenosis. There is no central canal stenosis. L1-L2: The disc does not extend beyond the endplate margin. There is mild bilateral facet joint osteo arthritis. There is no neural foraminal stenosis. There is no central canal stenosis. L2-L3: Disc is mildly bulging. There is hypertrophy of the ligamentum flavum. There is moderate righ t and mild left facet joint osteoarthritis. There is mild bilateral neural foraminal stenosis. There is mild central canal stenosis. L3-L4: Disc is mildly bulging. There is hypertrophy of the ligamentum flavum. There is mild right an d moderate left facet joint osteoarthritis. There is mild bilateral neural foraminal stenosis. There is mild central canal stenosis. L4-L5: Disc is bulging. There is hypertrophy of the ligamentum flavum. There is moderate to severe bi lateral facet joint osteoarthritis. There is mild left and moderate right neural foraminal stenosis. There is moderate to severe central canal stenosis. L5-S1: The disc does not extend beyond the endplate margin. There is moderate right and severe left f acet joint osteoarthritis. There is minimal bilateral neural foraminal stenosis. There is no central canal stenosis. IMPRESSION: 1. Moderate to large amount of colonic stool which could be seen with constipation. No other acute in tra-abdominal/pelvic process. 2. Diffuse hepatic steatosis. 3. Probable mild degenerative disc disease with moderate to severe facet osteoarthritis in the lower lumbar spine resulting in moderate to severe central canal stenosis at L4-L5. Reviewed, dictated and finalized at location A. IMPRESSION: 1. Moderate to large amount of colonic stool which could be seen with constipat ion. No other acute intra-abdominal/pelvic process. 2. Diffuse hepatic steatosis. 3. Probable mild deg
--- NOTE | 2020-12-24 06:17 | ED.BACK ---
HPI - Back Pain/Injury General Chief Complaint: Unspecified <Dale Badillo MD - Last Filed: 12/24/20 16:32> Stated Complaint: LUMBAR BACK PAIN 02/27 <Dale Badillo MD - Last Filed: 12/24/20 16:32> Time Seen by Provider: 12/24/20 06:17 <Dale Badillo MD - Last Filed: 12/24/20 16:32> History of Present Illness HPI Narrative: 80 yo female w/ h/o DM, COPD presents to the ED for back pain. She has had low back pain since she woke up yesterday. 02/27 in severity. No radiation. Additionally c/o constipation. Unsure whern she last had a bowle movement. No abdominal pain. She also has bilateral wrist pain. She reports that she has previously been seen for this and told that it was arthritis. <Dale Badillo MD - Last Filed: 12/24/20 16:32> Related Data Home Medications: Home Medications Medication Instructions Recorded Confirmed Breo Ellipta 1 inh INHALATION DAILY 10/07/20 10/07/20 Spiriva with HandiHaler 1 cap INHALATION DAILY 10/07/20 10/07/20 Tresiba U-100 Insulin 60 unit SUBCUT HS 10/07/20 10/07/20 albuterol sulfate [Ventolin HFA] 2 puff INHALATION Q4H PRN 10/07/20 10/07/20 ferrous sulfate 325 mg PO DAILY 10/07/20 10/07/20 furosemide 80 mg PO DAILY 10/07/20 10/07/20 insulin lispro [Humalog KwikPen See Rx Instructions .ROUTE .COMPLEX 10/07/20 10/07/20 Insulin] naproxen 500 mg PO BID PRN 10/07/20 10/07/20 olmesartan 40 mg PO DAILY 10/07/20 10/07/20 pantoprazole 40 mg PO QAM 10/07/20 10/07/20 perphenazine 2 mg PO TID 10/07/20 10/07/20 rosuvastatin 10 mg PO DAILY 10/07/20 10/07/20 <Dale Badillo MD - Last Filed: 12/24/20 16:32> Allergies/Adverse Reactions: Allergies Allergy/AdvReac Type Severity Reaction Status Date / Time Penicillins Allergy Unknown Itching Verified 12/24/20 06:44 <Dale Badillo MD - Last Filed: 12/24/20 16:32> Review of Systems Review of Systems: All systems reviewed & are unremarkable except as noted in HPI and below <Dale Badillo MD - Last Filed: 12/24/20 16:32> Constitutional: Constitutional: Denies fever(s) <Dale Badillo MD - Last Filed: 12/24/20 16:32> ENT: Denies dizziness <Dale Badillo MD - Last Filed: 12/24/20 16:32> Cardiovascular: Cardiovascular: Denies chest pain <Dale Badillo MD - Last Filed: 12/24/20 16:32> Respiratory: Respiratory: Denies dyspnea <Dale Badillo MD - Last Filed: 12/24/20 16:32> Gastrointestinal: Gastrointestinal: Reports constipation <Dale Badillo MD - Last Filed: 12/24/20 16:32> Genitourinary: Genitourinary: Denies hematuria and Denies dysuria <Dale Badillo MD - Last Filed: 12/24/20 16:32> Musculoskeletal: Musculoskeletal: Reports back pain <Dale Badillo MD - Last Filed: 12/24/20 16:32> Neurologic: Denies dizziness <Dale Badillo MD - Last Filed: 12/24/20 16:32> [facility] Past Medical History Medical History: Medical History Congestive heart failure (CHF) COPD (chronic obstructive pulmonary disease) Hyperglycemia due to type 2 diabetes mellitus <Dale Badillo MD - Last Filed: 12/24/20 16:32> Family History Family History: Family History Father Cerebrovascular accident Mother Chronic bronchitis <Dale Badillo MD - Last Filed: 12/24/20 16:32> Social History Social History: Social History Smoking packs per day: 0.5 Smoking cigarettes per day: 10.0 Years smoked: 64 Smoking pack-years: 32.00 Smoking status: Former smoker Smoking end date: 10/07/18 Alcohol intake: never Substance use: never Gender identity (if verbalized by the patient): Female Spiritual care concerns: No <Dale Badillo MD - Last Filed: 12/24/20 16:32> Exam Const: General: no acute distress and alert <Dale Badillo,
[2020-12-24 06:22] VITALS: BP 129/70; PULSE 100; RESP 18; TEMP 37.2; O2SAT 94
--- NOTE | 2020-12-24 06:38 | PC.NURSE ---
Pt to CT scan.
[2020-12-24 07:13] VITALS: BP 138/78; PULSE 90; RESP 18; O2SAT 94
--- NOTE | 2020-12-24 07:15 | PC.NURSE ---
Report to SARTHAK Gallagher, to continue care.
[2020-12-24 07:18] LABS: Basophils Percent Auto 0.3 % (0.2-1.2); Eosinophils Percent Auto 0.6 % (0-4.4); Hematocrit 36.5 % (37.0-47.0); Immature Granulocyte Absolute 0.03 K/mm3 (0.00-0.031); Immature Granulocyte Percent A 0.4 % (0-0.5); Lymphocytes Absolute Auto 0.91 K/mm3 (0.9-3.2); Lymphocytes Percent Auto 13.4 % (18.3-44.2); Mean Corpuscular HGB Conc 30.1 g/dl (32-36); Mean Corpuscular Hemoglobin 27.4 pg (26-34); Mean Platelet Volume 11.2 fl (7.4-10.4); Monocytes Absolute Auto 0.8 K/mm3 (0.1-0.6); Monocytes Percent Auto 12.4 % (2.6-8.5); Neutrophils Percent Auto 72.9 % (45.5-73.1); Platelet Count Result 247 k/mm3 (150-375); Red Blood Count 4.01 M/mm3 (4.2-5.4); Red Cell Distribution Width 13.5 % (11.5-14.5); White Blood Count 6.8 K/mm3 (4.5-10.0)
[2020-12-24 07:24] LABS: Alanine Aminotransferase 33 U/L (4-35); Alkaline Phosphatase 116 U/L (38-126); Anion Gap 7 mmol/L (8-16); Aspartate Amino Transferase 28 U/L (14-36); Bilirubin,Total 0.1 mg/dL (0.2-1.3); Blood Urea Nitrogen 17 mg/dL (7-17); Calcium 9.2 mg/dL (8.4-10.2); Carbon Dioxide 30 mmol/L (22-30); Chloride 97 mmol/L (98-107); Estimated CRCL calculation 47 ml/min; Estimated Glomerular Filt Rate > 60; Glucose 366 mg/dL (65-110); Potassium 4.3 mmol/L (3.4-5.0); Sodium 134 mmol/L (137-145)
[2020-12-24 07:27] LABS: INR 0.9; Prothrombin Time 12.2 Seconds (11.1-14.7)
[2020-12-24 07:46] LABS: Add Urine Microscopic? YES; Appearance Urine Clear (Clear); Bilirubin Urine Negative (Negative); Blood Urine Negative (Negative); Color Urine Yellow (Yellow); Glucose Urine UA 3+ mg/dL (Negative); Ketones Urine Negative (Negative); Leukocyte Esterase Ur Negative LEU/UL (Negative); Nitrate Urine Negative (Negative); Protein Urine Negative (Negative); Specific Grav Ur 1.026 (1.001-1.035); Squamous Epithelial Cell Urine Rare /hpf (Few); Urobilinogen Urine Negative mg/dL (<2.0); WBC Urine 0-3 /hpf
[2020-12-24] MEDS: HYDROcodone/acetaminophen (*CRX) 5-325 MG TABLET 1 TAB PO (08:19)
[2020-12-24 09:13] VITALS: BP 118/47; PULSE 91; RESP 14; O2SAT 99
[2020-12-24 10:30] VITALS: BP 110/65; PULSE 95; RESP 14; O2SAT 99
[2020-12-24 11:31] VITALS: BP 118/96; PULSE 83; RESP 14; O2SAT 99
[2020-12-29 11:04] LABS: Glucose Point of Care 348 mg/dl (65-105)
== END 2020-12-24 11:33 | disposition home or self-care (01) ==
PROVIDERS: Emergency Medicine; Emergency Provider Emergency Medicine; PCP Internal Medicine Infectious Disease
DX: M54.5 Low back pain (principal); K59.00 Constipation, unspecified; E11.9 Type 2 diabetes mellitus without complications; J44.9 Chronic obstructive pulmonary disease, unspecified; I50.9 Heart failure, unspecified; Z79.4 Long term (current) use of insulin; Z87.891 Personal history of nicotine dependence; K76.0 Fatty (change of) liver, not elsewhere classified
CPT/HCPCS: 36415; 51701; 72131; 74176; 80053; 81001; 82948; 85025; 85610; 85730; 99284; A9270

== ENCOUNTER 2021-03-03 00:02 | Inpatient (IN) | payer MEDICAID, SELFPAY ==
[2021-03-03] VITALS (12 sets, daily range): BP systolic 112–144; BP diastolic 52–76; PULSE 82–103; RESP 13–27; TEMP 36.3–36.6; O2SAT 92–100; BMI 37.0
--- NOTE | ~2021-03-03 | XR_ITS ---
EXAMINATION: XR chest 1V portable EXAM DATE: 03/03/2021 00:57 INDICATION: Shortness Of Breath TECHNIQUE: Portable AP frontal chest x-ray was obtained. Comparison is made to prior examination from 10/07/2020. FINDINGS: Ill-defined bilateral perihilar airspace disease left greater than right, distribution and appearance most consistent with pulmonary edema. There is cardiomegaly and pulmonary vascular congest ion. Pneumonia not excludable. No pneumothorax. There is aortic arteriosclerosis. There is pulmonary vascular congestion. There is a similar appearance to the airspace disease on prior study in September. IMPRESSION: Findings suspicious for CHF exacerbation. Clinical correlation. Reviewed, dictated and finalized at location A.
--- NOTE | ~2021-03-03 | XR_ITS ---
XR chest 1V portable 03/06/2021 13:56 Indication: Pneumonia. Procedure: AP portable chest Comparison: 03/03/2021 Findings: Hazy diffuse bilateral airspace disease. Cardiomegaly. There is atherosclerosis. No signifi cant pleural effusion or pneumothorax. No acute osseous abnormality. Impression: 1: Hazy diffuse bilateral airspace disease which may represent edema or pneumonia. Reviewed, dictated and finalized at location A. Impression: 1: Hazy diffuse bilateral airspace disease which may represent edema or pneumon ia.
--- NOTE | ~2021-03-03 | CT_ITS ---
EXAMINATION: CTA chest PE abdomen pel EXAM DATE: 03/03/2021 03:25 INDICATION: Dyspnea. TECHNIQUE: Spiral CTA of the chest (pulmonary arteries) was performed with 100 cc Omnipaque 350 intr avenous contrast injection. Images were acquired during the pulmonary arterial phase. Coronal maxi mum intensity projection 3D-reconstructions were created by the technologist on dedicated workstation . Axial, coronal and sagittal reformatted images were reviewed. Spiral CT of the abdomen and pelvis was then performed with the same intravenous contrast injection. Axial, coronal and sagittal reform atted images were reviewed. The dose-length product (DLP) for this examination was 1919.86 mGy-cm. The exposure was tailored according to patient size (auto mA exposure control), and iterative recons truction (ASIR) was used as additional dose reduction technique. Comparison is made to prior examinat ion from 12/24/2020. FINDINGS: CHEST: Pulmonary arteries are well opacified and without intraluminal filling defects. No thoracic aortic dissection. There is a completely collapsed right upper lobe, with fullness to the perihilar region of this appearance most consistent with bronchogenic carcinoma, post obstructive atelectasis. Uncertain how large the underlying likely masses given the associated atelectasis. Left upper lobe a irway is completely occluded, and the pulmonary artery supplying this are narrowed. There is aortopul monary window lymphadenopathy, lymph node measuring 2.8 x 1.3 cm. Lingula may also have complete atel ectasis. There are no pleural or pericardial effusions. There is no pneumothorax. Heart normal in size. There is mild coronary arterial calcification, arterial sclerosis. ABDOMEN PELVIS: There is hepatic steatosis. Right liver lobe hypodensity measuring 3.0 cm, 23 Hounsf [place] units scattered other subcentimeter hypodensities. These could be metastatic lesions or cysts. T here is right adrenal gland lesion measuring 1.4 cm, indeterminate. Gallbladder is unremarkable. No biliary obstruction. Portal and splenic veins are patent. Kidneys enhance symmetrically. There is no hydronephrosis. The uterus is unremarkable. The bladder is unremarkable. There is no retrope ritoneal or pelvic lymphadenopathy. There is mild to moderate scattered arteriosclerotic disease. There are no findings to suggest appendicitis. There is small sliding gastroesophageal hiatal hernia . There is expected amount of colonic stool. No free intraperitoneal gas. There are no osteoblas tic or osteolytic lesions identified. IMPRESSION: 1. Right upper lobe collapse likely from underlying perihilar bronchogenic carcinoma. Recommend bron choscopy. 2. Metastatic mediastinal lymphadenopathy. 3. Liver lesions, could be cyst but metastatic disease not excludable. 4. Indeterminate right adrenal nodule unchanged. Reviewed, dictated and finalized at location A. IMPRESSION: 1. Right upper lobe collapse likely from underlying perihilar bronchogenic car cinoma. Recommend bronchoscopy. 2. Metastatic mediastinal lymphadenopathy. 3. Liver lesions, could be cyst but metastatic disease not excludable. 4. Indeterminate right adrenal nodule unchanged.
--- NOTE | ~2021-03-03 | XR_ITS ---
XR chest 1V portable 03/07/2021 08:03 Indication: Fluid overload. Dyspnea. Procedure: AP portable chest Comparison: Comparison to multiple prior studies sequentially, with oldest reviewed study dated 01/30. Findings: Cardiomegaly. Mild interstitial edema. No pleural effusion or pneumothorax. Severe degenera tive changes of the shoulders. Impression: 1: Cardiomegaly with mild interstitial edema. Reviewed, dictated and finalized at location B. Impression: 1: Cardiomegaly with mild interstitial edema.
--- NOTE | 2021-03-03 00:22 | ED.CHESTPAIN ---
HPI - Chest Pain General Chief Complaint: Chest Pain <Terri Mccracken MD - Last Filed: 03/03/21 02:52> Stated Complaint: CHEST PAIN <Terri Mccracken MD - Last Filed: 03/03/21 02:52> Time Seen by Provider: 03/03/21 00:21 <Terri Mccracken MD - Last Filed: 03/03/21 02:52> Source: patient and EMS <Terri Mccracken MD - Last Filed: 03/03/21 02:52> Mode of arrival: wheelchair <Terri Mccracken MD - Last Filed: 03/03/21 02:52> Limitations: no limitations <Terri Mccracken MD - Last Filed: 03/03/21 02:52> History of Present Illness HPI narrative: Patient is an 81-year-old female with a history of legal blindness, CHF, type 2 diabetes, COPD on 4 L home oxygen, lung cancer, presenting for evaluation of shortness of breath, left-sided chest pain. Patient states that pain has been intermittent in her left chest with radiation into her left neck and back. Patient states pain is severe. Patient denies any worsening dyspnea from baseline; denies nausea, vomiting, fever or chills. Pt also reports left sided abdominal pain which has been intermittent over past 48 hours. Patient reports history of constipation recently. Pt denies leg swelling, palpitations. Pt with COVID Infection in 04/2020. Pt follows at [facility]. <Terri Mccracken MD - Last Filed: 03/03/21 02:52> Related Data Home Medications: Home Medications Medication Instructions Recorded Confirmed Breo Ellipta 1 inh INHALATION DAILY 10/07/20 10/07/20 Spiriva with HandiHaler 1 cap INHALATION DAILY 10/07/20 10/07/20 Tresiba U-100 Insulin 60 unit SUBCUT HS 10/07/20 10/07/20 albuterol sulfate [Ventolin HFA] 2 puff INHALATION Q4H PRN 10/07/20 10/07/20 ferrous sulfate 325 mg PO DAILY 10/07/20 10/07/20 furosemide 80 mg PO DAILY 10/07/20 10/07/20 insulin lispro [Humalog KwikPen See Rx Instructions .ROUTE .COMPLEX 10/07/20 10/07/20 Insulin] naproxen 500 mg PO BID PRN 10/07/20 10/07/20 olmesartan 40 mg PO DAILY 10/07/20 10/07/20 pantoprazole 40 mg PO QAM 10/07/20 10/07/20 perphenazine 2 mg PO TID 10/07/20 10/07/20 rosuvastatin 10 mg PO DAILY 10/07/20 10/07/20 aspirin 81 mg PO DAILY 03/03/21 benztropine 03/03/21 docusate sodium 100 mg PO DAILY 03/03/21 metoprolol succinate PO 03/03/21 <Terri Mccracken MD - Last Filed: 03/03/21 02:52> Allergies/Adverse Reactions: Allergies Allergy/AdvReac Type Severity Reaction Status Date / Time Penicillins Allergy Unknown Itching Verified 03/03/21 00:14 <Terri Mccracken MD - Last Filed: 03/03/21 02:52> Review of Systems Review of Systems: CONSTITUTIONAL: Denies fever, chills, or sweats. EYES: Denies visual changes, redness, or discharge. ENT: Denies rhinorrhea, congestion, sore throat, or otalgia. CARDIOVASCULAR: Reports left sided chest pain, without palpitations or edema RESPIRATORY: Denies worsening cough or dyspnea. GASTROINTESTINAL: Reports abdominal pain, without nausea or vomiting GENITOURINARY: Denies dysuria or hematuria. SKIN: Denies rash or itching. MUSCULOSKELETAL: Denies back pain, joint pain, or myalgia. NEUROLOGIC: Denies headache, numbness, or weakness. <Terri Mccracken MD - Last Filed: 03/03/21 02:52> [facility] Past Medical History Medical History: Medical History (Updated 03/03/21 @ 04:54 by Elias Grijalva MD) Chest pain Congestive heart failure (CHF) COPD (chronic obstructive pulmonary disease) Hyperglycemia due to type 2 diabetes mellitus Sleep apnea <Terri Mccracken MD - Last Filed: 03/03/21 02:52> Family History Family History: Family History Father Cerebrovascular accident Mother Chronic bronchitis <Terri Mccracken MD - Last Filed: 03/03/21 02:52> Social History Social History: Social History Smoking packs per day: 0.5 Smoking cigarettes per day: 10.0 Years smoked: 64 Smoking pac
[2021-03-03 01:00] LABS: Basophils Percent Auto 0.5 % (0.2-1.2); Eosinophils Absolute Auto 0.1 K/mm3 (0-0.3); Eosinophils Percent Auto 1.1 % (0-4.4); Hematocrit 39.6 % (37.0-47.0); Hemoglobin 12.3 g/dL (12.0-15.0); Immature Granulocyte Absolute 0.03 K/mm3 (0.00-0.031); Immature Granulocyte Percent A 0.5 % (0-0.5); Lymphocytes Absolute Auto 1.11 K/mm3 (0.9-3.2); Lymphocytes Percent Auto 17.9 % (18.3-44.2); Mean Corpuscular HGB Conc 31.1 g/dl (32-36); Mean Corpuscular Hemoglobin 29.1 pg (26-34); Mean Corpuscular Volume 93.6 fl (80-100); Monocytes Absolute Auto 0.8 K/mm3 (0.1-0.6); Monocytes Percent Auto 12.9 % (2.6-8.5); Neutrophils Absolute Auto 4.2 K/mm3 (1.3-6.7); Neutrophils Percent Auto 67.1 % (45.5-73.1); Platelet Count Result 262 k/mm3 (150-375); Red Blood Count 4.23 M/mm3 (4.2-5.4); Red Cell Distribution Width 12.8 % (11.5-14.5); White Blood Count 6.2 K/mm3 (4.5-10.0)
[2021-03-03 01:08] LABS: INR 0.9; Prothrombin Time 12.4 Seconds (11.1-14.7)
[2021-03-03 01:09] LABS: Partial Thromboplastin Time 24.7 SECONDS (22.3-36.8)
--- NOTE | 2021-03-03 01:09 | ECG_ITS ---
Measurements Intervals [place] Rate: 101 P: 36 KS: 133 QRS: 2 QRSD: 94 T: 23 QT: 370 QTc: 481 Interpretive Statements SINUS TACHYCARDIA BASELINE ARTIFACT- I, II, III, AVR, AVL, AVF, V1, V3-V6 ABNORMAL ECG Electronically Signed On 03-03-2021 6:30:44 CDT by Linwood Botello D.O.
[2021-03-03 01:17] LABS: Alanine Aminotransferase 58 U/L (4-35); Albumin Level 4.7 g/dL (3.5-5.1); Alkaline Phosphatase 140 U/L (38-126); Anion Gap 12 mmol/L (8-16); Aspartate Amino Transferase 52 U/L (14-36); Bilirubin,Total 0.2 mg/dL (0.2-1.3); Blood Urea Nitrogen 21 mg/dL (7-17); Calcium 9.4 mg/dL (8.4-10.2); Carbon Dioxide 26 mmol/L (22-30); Chloride 100 mmol/L (98-107); Estimated CRCL calculation 44 ml/min; Estimated Glomerular Filt Rate > 60; Glucose 401 mg/dL (65-110); Potassium 4.3 mmol/L (3.4-5.0); Sodium 138 mmol/L (137-145)
[2021-03-03 01:29] LABS: NT Pro B Type Natriuretic Pept 43 pg/mL (5-100); Troponin I < 0.012 ng/mL (0.000-0.034)
[2021-03-03 02:30] LABS: Add Urine Microscopic? YES; Appearance Urine Clear (Clear); Bilirubin Urine Negative (Negative); Blood Urine Negative (Negative); Color Urine Yellow (Yellow); Glucose Urine UA 3+ mg/dL (Negative); Ketones Urine Negative (Negative); Leukocyte Esterase Ur Negative LEU/UL (Negative); Mucus Urine Rare /lpf; Nitrate Urine Negative (Negative); Protein Urine Negative (Negative); RBC Urine 0-2 /hpf (0-2); Specific Grav Ur 1.024 (1.001-1.035); Squamous Epithelial Cell Urine Rare /hpf (Few); Urobilinogen Urine Negative mg/dL (<2.0); WBC Urine 0-3 /hpf
[2021-03-03] MEDS: MORPHINE SULFATE (*CRX) 2 MG/ML INJ IV PUSH (03:24)
[2021-03-03] MEDS: ASPIRIN 81 MG CHEWABLE TABLET 324 MG PO (03:24)
[2021-03-03 04:45] LABS: Troponin I < 0.012 ng/mL (0.000-0.034)
--- NOTE | 2021-03-03 06:43 | ADMGEN ---
This patient, Patricia Sequeira, was admitted to 2 Medical Room 242-01. Patient/family oriented to hospital policies and general routines including ID bracelet, bed and alarms, visiting hours, pain management, procedures, bathroom and other care routines, personal items, smoking policy, room service/diet, and visiting hours. Information on how to activate the Rapid Response Team has been discussed. Patient/Family are encouraged to report perceived risks to care and to ask questions if they do not understand what they are told or what they should do.
[2021-03-03 07:49] LABS: Glucose Point of Care 297 mg/dl (65-105)
--- NOTE | 2021-03-03 08:37 | PM.IMHP ---
H&P: HPI History of Present Illness Date/Time: 03/03/21 08:37 Chief Complaint: Left chest pain Narrative: 81-year-old female with a past medical history of lung cancer, chronic hypoxic respiratory, CHF, and type 2 diabetes mellitus who presented to the ER with left-sided chest pain and left lower quadrant abdominal pain. The patient is only a fair to poor historian. The patient has been having intermittent left chest pain with radiation into her left neck and back. She reports the pain is severe when it occurs. She denies any relieving her eliciting factors. She has not noticed any change in her dyspnea from baseline. She does have known lung cancer and is due to start chemotherapy at [facility] in approximately 7 days. The pain occurred until she arrived in the ER and subsequently resolved. She has not had a recurrence of her chest pain. She does have chronic right upper extremity swelling associated with her cancer. She also has some left lower extremity swelling but not to the same extent. Swelling is unchanged from her baseline. She reports that she uses 2 L nasal cannula during the day and 4 L at night. She also noted some left-sided abdominal pain that is intermittent in nature and is quite severe when it occurs. At its most severe is a 9/10 in intensity. The patient states that she feels like she is constipated. She did have a small bowel movement on the 12th just before start of her abdominal pain. She is unable to tell me if she had any hematochezia or melena due to her chronic blindness. She has intermittent difficulty with urinary incontinence but denies any currently. She denies any dysuria or hematuria. Upon arrival to the ER the patient was satting 88% on room air but patient is on chronic home O2 4 L nasal cannula. On her home oxygen supplementation she was 96%. She did not receive her home long-acting insulin prior to coming to the ER last night. She did not receive her long-acting insulin until after admission this morning. Subsequently her glucoses were up in the 400s. After insulin administration the patient's glucoses have come down to the mid 200s. She denies any nausea or vomiting. She reports a good appetite. She was recently diagnosed with cancer at [facility]. It sounds as if the plan is to treat with palliative radiation therapy. The patient had COVID-19 04/2020. Review of Systems Review of Systems: 12 systems were reviewed with pertinent positives and negatives per HPI. Except as documented in the HPI, all other systems were reviewed and are negative. [facility] Past Medical History Medical History (Updated 03/03/21 @ 23:07 by Mai Zimmer DO) Chronic anemia Congestive heart failure (CHF) COPD (chronic obstructive pulmonary disease) GERD (gastroesophageal reflux disease) Hyperglycemia due to type 2 diabetes mellitus Hyperlipidemia Legally blind Lung cancer Sleep apnea Surgical History Surgical History (Updated 03/03/21 @ 23:01 by Mai Zimmer DO) History of bronchoscopy (~01/2021) Status post cataract surgery Family History Family History Father Cerebrovascular accident Mother Chronic bronchitis Social History Social History (Updated 03/03/21 @ 23:05 by Mai Zimmer DO) Social History: She lives with her son Esteban. As she smoked a half a pack of cigarettes per day from the time she was a teenager until the age of 78. She quit smoking 3 years ago. She denies any significant alcohol use. She denies any illicit substance use. 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 Surrogate decision maker: Esteban (son) and Lisa (daughter) Smoking packs per day: 0.5 Smoking cigarettes per day: 10.0 Years smoked: 64 Smoking pack-years: 32.00 Smoking status: Never smoker Smoking end date: 10/07/18 Alcohol intake: never Substance use: never Gender identity (if verbalized by the patient): Female
[2021-03-03] MEDS: INSULIN ASPART (*BKC) 100 UNITS/ML SUB-Q ×2 (09:11→11:56)
[2021-03-03] MEDS: INSULIN GLARGINE (*BKC) 100 UNITS/ML 30 UNITS SUB-Q (09:13)
[2021-03-03] MEDS: OLMESARTAN MEDOXOMIL 20 MG TABLET 40 MG PO (09:29)
[2021-03-03] MEDS: METOPROLOL SUCCINATE EXT REL 25 MG TABCR PO (09:29)
[2021-03-03] MEDS: FUROSEMIDE 80 MG TABLET PO (09:29)
[2021-03-03] MEDS: PANTOPRAZOLE 40 MG TABLET PO (09:30)
[2021-03-03] MEDS: POTASSIUM CHLORIDE 20 MEQ TABLET.ER PO (09:30)
[2021-03-03] MEDS: PERPHENAZINE 2 MG TABLET PO ×3 (09:30→16:50)
[2021-03-03] MEDS: ASPIRIN 81 MG CHEWABLE TABLET PO (09:30)
[2021-03-03] MEDS: FERROUS SULFATE 324 MG TABLET PO (09:30)
[2021-03-03] MEDS: DOCUSATE SODIUM 100 MG CAPSULE PO (09:30)
[2021-03-03] MEDS: FLUTICASONE PROPIONATE 0.05% NA SPR 16 GM BTL (*BKC) 1 SPRAY NASAL ×2 (09:31→22:09)
[2021-03-03] MEDS: polyethylene glycoL 3350 17 GM POWD.PACK PO (09:31)
[2021-03-03] MEDS: HYDROcodone/acetaminophen (*CRX) 5-325 MG TABLET 1 TAB PO (10:02)
[2021-03-03 11:21] LABS: Glucose Point of Care 375 mg/dl (65-105)
[2021-03-03 12:09] LABS: Troponin I < 0.012 ng/mL (0.000-0.034)
[2021-03-03] MEDS: DOCUSATE SODIUM 400 MG/400 ML ENEMA RECTAL (12:14)
[2021-03-03 16:43] LABS: Glucose Point of Care 444 mg/dl (65-105)
[2021-03-03] MEDS: INSULIN ASPART (*BKC) 100 UNITS/ML 12 UNITS SUB-Q (17:05)
[2021-03-03] MEDS: BENZTROPINE MESYLATE 0.5 MG TABLET PO (22:09)
[2021-03-03] MEDS: SENNA/DOCUSATE SODIUM TABLET 1 TAB PO (22:09)
[2021-03-03] MEDS: INSULIN GLARGINE (*BKC) 100 UNITS/ML 60 UNITS SUB-Q (22:12)
[2021-03-03 22:48] LABS: Glucose Point of Care 285 mg/dl (65-105)
[2021-03-04] VITALS (12 sets, daily range): BP systolic 117–121; BP diastolic 52–63; PULSE 80–100; RESP 14–20; TEMP 36.1–36.5; O2SAT 95–98
[2021-03-04 06:37] LABS: Hematocrit 37.2 % (37.0-47.0); Hemoglobin 11.5 g/dL (12.0-15.0); Mean Corpuscular HGB Conc 30.9 g/dl (32-36); Mean Corpuscular Volume 93.9 fl (80-100); Mean Platelet Volume 12.4 fl (7.4-10.4); Platelet Count Result 237 k/mm3 (150-375); Red Blood Count 3.96 M/mm3 (4.2-5.4); Red Cell Distribution Width 12.5 % (11.5-14.5); White Blood Count 5.1 K/mm3 (4.5-10.0)
[2021-03-04 06:54] LABS: Anion Gap 7 mmol/L (8-16); Blood Urea Nitrogen 18 mg/dL (7-17); Calcium 9.4 mg/dL (8.4-10.2); Carbon Dioxide 30 mmol/L (22-30); Chloride 98 mmol/L (98-107); Estimated CRCL calculation 47 ml/min; Estimated Glomerular Filt Rate > 60; Glucose 374 mg/dL (65-110); Potassium 4.5 mmol/L (3.4-5.0); Sodium 135 mmol/L (137-145)
[2021-03-04 07:54] LABS: Glucose Point of Care 310 mg/dl (65-105)
[2021-03-04] MEDS: INSULIN ASPART (*BKC) 100 UNITS/ML SUB-Q ×2 (07:59→16:28)
[2021-03-04] MEDS: ASPIRIN 81 MG CHEWABLE TABLET PO (08:02)
[2021-03-04] MEDS: DOCUSATE SODIUM 100 MG CAPSULE PO (08:03)
[2021-03-04] MEDS: FLUTICASONE PROPIONATE 0.05% NA SPR 16 GM BTL (*BKC) 1 SPRAY NASAL ×2 (08:03→21:20)
[2021-03-04] MEDS: FERROUS SULFATE 324 MG TABLET PO (08:03)
[2021-03-04] MEDS: FUROSEMIDE 80 MG TABLET PO (08:03)
[2021-03-04] MEDS: METOPROLOL SUCCINATE EXT REL 25 MG TABCR PO (08:03)
[2021-03-04] MEDS: PERPHENAZINE 2 MG TABLET PO ×3 (08:04→16:30)
[2021-03-04] MEDS: OLMESARTAN MEDOXOMIL 20 MG TABLET 40 MG PO (08:04)
[2021-03-04] MEDS: PANTOPRAZOLE 40 MG TABLET PO (08:04)
[2021-03-04] MEDS: POTASSIUM CHLORIDE 20 MEQ TABLET.ER PO (08:05)
[2021-03-04] MEDS: polyethylene glycoL 3350 17 GM POWD.PACK PO (08:05)
[2021-03-04 11:44] LABS: Glucose Point of Care 422 mg/dl (65-105)
[2021-03-04] MEDS: INSULIN ASPART (*BKC) 100 UNITS/ML 10 UNITS SUB-Q (12:06)
--- NOTE | 2021-03-04 15:29 | PM.IMPN ---
Progress Note: A&P Assessment and Plan (1) Chest pain: Qualifiers: Chest pain type: unspecified Qualified Code(s): R07.9 - Chest pain, unspecified Code(s): R07.9 - Chest pain, unspecified Status: Acute (2) Lung cancer: Qualifiers: Laterality: unspecified laterality Lung location: unspecified part of lung Qualified Code(s): C34.90 - Malignant neoplasm of unspecified part of unspecified bronchus or lung Code(s): C34.90 - Malignant neoplasm of unspecified part of unspecified bronchus or lung Status: Inactive (3) Abdominal pain: Qualifiers: Abdominal location: left lower quadrant Qualified Code(s): R10.32 - Left lower quadrant pain Code(s): R10.9 - Unspecified abdominal pain Status: Acute Assessment and Plan: Pain management. (4) Diabetes mellitus with hyperglycemia: Qualifiers: Diabetes mellitus type: type 2 Diabetes mellitus buttermaker continuous churn insulin use: with prison use Qualified Code(s): E11.65 - Type 2 diabetes mellitus with hyperglycemia; Z79.4 - terminal carman (current) use of insulin Code(s): E11.65 - Type 2 diabetes mellitus with hyperglycemia Status: Acute Additional Plan Patient was admitted with chest pain that seems atypical in nature. She had to negative sets of cardiac enzymes. Her chest pain had resolved by when she rib CV the morphine for her abdominal pain. Her chest pain has not recurred. She had a CT of the chest abdomen pelvis which demonstrated right upper lobe collapse likely from underlying perihilar bronchogenic carcinoma for which she already had a prior bronchoscopy at [facility]. She also had metastatic mediastinal lymphadenopathy and liver lesions could be cysts versus metastatic disease. Patient is having unspecific left lower quadrant abdominal pain. She reports that the pain is similar to when she has been constipated previously. She has not had a bowel movement in a couple of days. Colace enema has been ordered. She did have 1 bowel movement after a Colace enema. Pain managemen PRN. Patient had hyperglycemia due to missing her long-acting insulin yesterday. She did receive an additional dose of long-acting insulin this morning at half the dose. She also received a couple doses of NovoLog. Will resume the patient's home dose of long-acting insulin this evening. Her glucoses have improved after insulin administration. Patient has been placed on high-dose sliding scale insulin with Accu-Cheks a.c. HS and hypoglycemia protocol. Will change patient's diet to consistent carbohydrate diet. Patient has been admitted as observation status. Subjective Date/time seen: 03/04/21 11:00 Narrative: 81-year-old female with a past medical history of lung cancer, chronic hypoxic respiratory, CHF, and type 2 diabetes mellitus who presented to the ER with left-sided chest pain and left lower quadrant abdominal pain. Patient was admitted with chest pain that seems atypical in nature. She had to negative sets of cardiac enzymes. Her chest pain had resolved and has not recurred. She had a CT of the chest abdomen pelvis which demonstrated right upper lobe collapse likely from underlying perihilar bronchogenic carcinoma for which she already had a prior bronchoscopy at [facility]. She also had metastatic mediastinal lymphadenopathy and liver lesions could be cysts versus metastatic disease. S: Patient is examined at the bedside; she is feeling a lot better today. she reports left lower quadrant abdominal pain. Review of Systems Review of Systems: All systems reviewed & are unremarkable except as noted in HPI and below Constitutional: Constitutional: Reports no additional constitutional complaints Eyes: Eyes: Reports no additional eye complaints ENT: Reports system reviewed and no additional complaints, except as documented Cardiovascular: Cardiovascular: Reports no additional cardiovascular complaints Respiratory: Respi
[2021-03-04 16:30] LABS: Glucose Point of Care 387 mg/dl (65-105)
[2021-03-04] MEDS: BENZTROPINE MESYLATE 0.5 MG TABLET PO (21:20)
[2021-03-04] MEDS: SENNA/DOCUSATE SODIUM TABLET 1 TAB PO (21:21)
[2021-03-04] MEDS: HYDROcodone/acetaminophen (*CRX) 5-325 MG TABLET 1 TAB PO (21:21)
[2021-03-04] MEDS: INSULIN GLARGINE (*BKC) 100 UNITS/ML 60 UNITS SUB-Q (21:21)
[2021-03-04 21:29] LABS: Glucose Point of Care 448 mg/dl (65-105)
[2021-03-04] MEDS: INSULIN ASPART (*BKC) 100 UNITS/ML 8 UNITS SUB-Q (22:16)
[2021-03-05] VITALS (14 sets, daily range): BP systolic 100–109; BP diastolic 46–60; PULSE 78–109; RESP 18–20; TEMP 36.4–36.6; O2SAT 94–100
[2021-03-05 00:21] LABS: Glucose Point of Care 456 mg/dl (65-105)
[2021-03-05] MEDS: INSULIN ASPART (*BKC) 100 UNITS/ML 12 UNITS SUB-Q ×2 (00:33→22:49)
[2021-03-05 05:46] LABS: Potassium 4.3 mmol/L (3.4-5.0)
[2021-03-05 06:28] LABS: Glucose Point of Care 255 mg/dl (65-105)
[2021-03-05] MEDS: INSULIN ASPART (*BKC) 100 UNITS/ML SUB-Q ×2 (07:40→12:13)
[2021-03-05 07:54] LABS: Glucose Point of Care 269 mg/dl (65-105)
[2021-03-05] MEDS: polyethylene glycoL 3350 17 GM POWD.PACK PO (08:54)
[2021-03-05] MEDS: FLUTICASONE PROPIONATE 0.05% NA SPR 16 GM BTL (*BKC) 1 SPRAY NASAL ×2 (08:54→21:14)
[2021-03-05] MEDS: ASPIRIN 81 MG CHEWABLE TABLET PO (08:55)
[2021-03-05] MEDS: PERPHENAZINE 2 MG TABLET PO ×3 (08:55→18:56)
[2021-03-05] MEDS: OLMESARTAN MEDOXOMIL 20 MG TABLET 40 MG PO (08:55)
[2021-03-05] MEDS: FUROSEMIDE 80 MG TABLET PO (08:55)
[2021-03-05] MEDS: DOCUSATE SODIUM 100 MG CAPSULE PO (08:55)
[2021-03-05] MEDS: PANTOPRAZOLE 40 MG TABLET PO (08:55)
[2021-03-05] MEDS: FERROUS SULFATE 324 MG TABLET PO (08:55)
[2021-03-05] MEDS: METOPROLOL SUCCINATE EXT REL 25 MG TABCR PO (08:56)
[2021-03-05] MEDS: POTASSIUM CHLORIDE 20 MEQ TABLET.ER PO (08:56)
--- NOTE | 2021-03-05 11:08 | PCPTNOTE ---
On 03/05/21, the student, Paul Beyer, provided care and completed [facility] documentation on this patient. I have reviewed the student's documentation and agree with the findings.
[2021-03-05 12:10] LABS: Glucose Point of Care 346 mg/dl (65-105)
[2021-03-05] MEDS: BISACODYL 5 MG TABLET EC 10 MG PO (12:13)
[2021-03-05] MEDS: LACTULOSE 20 GM/30 ML UDC PO (16:07)
[2021-03-05] MEDS: HYDROcodone/acetaminophen (*CRX) 5-325 MG TABLET 1 TAB PO (16:07)
[2021-03-05 17:21] LABS: Glucose Point of Care 404 mg/dl (65-105)
--- NOTE | 2021-03-05 17:48 | PM.IMPN ---
Progress Note: A&P Assessment and Plan (1) Chest pain: Qualifiers: Chest pain type: unspecified Qualified Code(s): R07.9 - Chest pain, unspecified Code(s): R07.9 - Chest pain, unspecified Status: Acute Assessment and Plan: Patient was admitted with chest pain that seems atypical in nature. She had to negative sets of cardiac enzymes. Her chest pain had resolved after she received morphine for her abdominal pain. Her chest pain has not recurred. She had a CT of the chest abdomen pelvis which demonstrated right upper lobe collapse likely from underlying perihilar bronchogenic carcinoma for which she already had a prior bronchoscopy at [place]. She also had metastatic mediastinal lymphadenopathy and liver lesions could be cysts versus metastatic disease. Again chest pain was resolved at the time of my examination. Likely related to recently diagnosed lung cancer. Scheduled for palliative radiation therapy at [facility]. (2) Lung cancer: Qualifiers: Laterality: unspecified laterality Lung location: unspecified part of lung Qualified Code(s): C34.90 - Malignant neoplasm of unspecified part of unspecified bronchus or lung Code(s): C34.90 - Malignant neoplasm of unspecified part of unspecified bronchus or lung Status: Inactive (3) Abdominal pain: Qualifiers: Abdominal location: left lower quadrant Qualified Code(s): R10.32 - Left lower quadrant pain Code(s): R10.9 - Unspecified abdominal pain Status: Acute Assessment and Plan: Patient is having unspecific left lower quadrant abdominal pain. Review of CT scan of abdomen did not reveal any acute issue. She reports that the pain is similar to when she has been constipated previously. She has not had a bowel movement in a couple of days. Colace enema has been ordered. She did have 1 bowel movement after a Colace enema 2 days ago. Pain management. colace, lactulose and miralax given. No bowel movement as of this afternoon. Discharge delayed. (4) Diabetes mellitus with hyperglycemia: Qualifiers: Diabetes mellitus type: type 2 Diabetes mellitus halfway insulin use: with halfway use Qualified Code(s): E11.65 - Type 2 diabetes mellitus with hyperglycemia; Z79.4 - senior care (current) use of insulin Code(s): E11.65 - Type 2 diabetes mellitus with hyperglycemia Status: Acute Assessment and Plan: Patient had hyperglycemia at presentation due to missing her long-acting insulin. She did receive an additional dose of long-acting insulin this morning at half the dose. Currently the patient has been restarted on her home dose of long-acting insulin with a high-dose sliding scale insulin with Accu-Cheks a.c. HS and hypoglycemia protocol. Her accucheck has peaked to 404 today. Aspart 10 units given. Monitor accucheks. Additional Plan Patient has been admitted as observation status. Subjective Date/time seen: 03/05/21 17:48 S : PAtient is examined at the bedside. She reports left lower abdomen pain and constipation. Review of Systems Review of Systems: All systems reviewed & are unremarkable except as noted in HPI and below Constitutional: Constitutional: Reports no additional constitutional complaints Eyes: Eyes: Reports no additional eye complaints ENT: Reports system reviewed and no additional complaints, except as documented Cardiovascular: Cardiovascular: Reports no additional cardiovascular complaints Respiratory: Respiratory: Reports no additional respiratory complaints Gastrointestinal: Gastrointestinal: Reports abdominal pain and Reports constipation Comments: LEft lower quadrant abdominal pain Genitourinary: Genitourinary: Reports no additional female genitourinary complaints Musculoskeletal: Musculoskeletal: Reports no additional musculoskeletal complaints Integumentary/Breasts: Skin/Breast: Reports system reviewed and no additional complaints, ex
[2021-03-05] MEDS: INSULIN ASPART (*BKC) 100 UNITS/ML 10 UNITS SUB-Q (18:56)
[2021-03-05] MEDS: SENNA/DOCUSATE SODIUM TABLET 1 TAB PO (21:14)
[2021-03-05] MEDS: BENZTROPINE MESYLATE 0.5 MG TABLET PO (21:14)
[2021-03-05] MEDS: INSULIN GLARGINE (*BKC) 100 UNITS/ML 60 UNITS SUB-Q (21:17)
[2021-03-05 21:33] LABS: Glucose Point of Care 395 mg/dl (65-105)
[2021-03-06] VITALS (16 sets, daily range): BP systolic 90–108; BP diastolic 50–62; PULSE 87–100; RESP 16–22; TEMP 35.9–36.6; O2SAT 93–98
[2021-03-06 02:05] LABS: Glucose Point of Care 342 mg/dl (65-105)
[2021-03-06] MEDS: INSULIN ASPART (*BKC) 100 UNITS/ML 6 UNITS SUB-Q (02:13)
[2021-03-06 07:48] LABS: Glucose Point of Care 215 mg/dl (65-105)
[2021-03-06] MEDS: ASPIRIN 81 MG CHEWABLE TABLET PO (08:12)
[2021-03-06] MEDS: FERROUS SULFATE 324 MG TABLET PO (08:12)
[2021-03-06] MEDS: METOPROLOL SUCCINATE EXT REL 25 MG TABCR PO (08:12)
[2021-03-06] MEDS: DOCUSATE SODIUM 100 MG CAPSULE PO (08:12)
[2021-03-06] MEDS: FLUTICASONE PROPIONATE 0.05% NA SPR 16 GM BTL (*BKC) 1 SPRAY NASAL ×2 (08:15→21:55)
[2021-03-06] MEDS: OLMESARTAN MEDOXOMIL 20 MG TABLET 40 MG PO (08:15)
[2021-03-06] MEDS: PERPHENAZINE 2 MG TABLET PO ×3 (08:15→17:55)
[2021-03-06] MEDS: PANTOPRAZOLE 40 MG TABLET PO (08:15)
[2021-03-06] MEDS: INSULIN ASPART (*BKC) 100 UNITS/ML SUB-Q (08:16)
[2021-03-06] MEDS: polyethylene glycoL 3350 17 GM POWD.PACK PO (08:16)
[2021-03-06] MEDS: FUROSEMIDE 80 MG TABLET PO (08:16)
[2021-03-06] MEDS: POTASSIUM CHLORIDE 20 MEQ TABLET.ER PO (08:17)
[2021-03-06 09:04] LABS: Hemoglobin 12.4 g/dL (12.0-15.0); Mean Corpuscular HGB Conc 30.2 g/dl (32-36); Mean Corpuscular Hemoglobin 29.2 pg (26-34); Mean Corpuscular Volume 96.5 fl (80-100); Mean Platelet Volume 11.4 fl (7.4-10.4); Platelet Count Result 229 k/mm3 (150-375); Red Blood Count 4.25 M/mm3 (4.2-5.4); Red Cell Distribution Width 12.2 % (11.5-14.5); White Blood Count 5.2 K/mm3 (4.5-10.0)
[2021-03-06 09:18] LABS: Anion Gap 11 mmol/L (8-16); Blood Urea Nitrogen 23 mg/dL (7-17); Calcium 9.7 mg/dL (8.4-10.2); Carbon Dioxide 26 mmol/L (22-30); Chloride 98 mmol/L (98-107); Estimated CRCL calculation 43 ml/min; Estimated Glomerular Filt Rate > 60; Glucose 259 mg/dL (65-110); Potassium 4.3 mmol/L (3.4-5.0); Sodium 135 mmol/L (137-145)
[2021-03-06 11:41] LABS: Glucose Point of Care > 500 mg/dl (65-105)
[2021-03-06] MEDS: INSULIN ASPART (*BKC) 100 UNITS/ML 10 UNITS SUB-Q (12:17)
[2021-03-06 12:20] LABS: Glucose Point of Care > 500 mg/dl (65-105)
[2021-03-06 13:21] LABS: Anion Gap 10 mmol/L (8-16); Blood Urea Nitrogen 27 mg/dL (7-17); Carbon Dioxide 24 mmol/L (22-30); Chloride 95 mmol/L (98-107); Estimated CRCL calculation 39 ml/min; Estimated Glomerular Filt Rate 57; Glucose 640 mg/dL (65-110); Sodium 129 mmol/L (137-145)
--- NOTE | 2021-03-06 14:02 | PM.IMPN ---
Progress Note: A&P Assessment and Plan (1) Lung cancer: Qualifiers: Laterality: unspecified laterality Lung location: unspecified part of lung Qualified Code(s): C34.90 - Malignant neoplasm of unspecified part of unspecified bronchus or lung Code(s): C34.90 - Malignant neoplasm of unspecified part of unspecified bronchus or lung Status: Acute Assessment and Plan: Recently diagnosed lung cancer. Scheduled for palliative radiation therapy at [facility]. (2) Diabetes mellitus with hyperglycemia: Qualifiers: Diabetes mellitus type: type 2 Diabetes mellitus fpc insulin use: with bed bug exterminator use Qualified Code(s): E11.65 - Type 2 diabetes mellitus with hyperglycemia; Z79.4 - termite exterminator (current) use of insulin Code(s): E11.65 - Type 2 diabetes mellitus with hyperglycemia Status: Acute Assessment and Plan: Uncontrolled blood glucose Check BMP, betahydroxybutyrate Patient transferred to ICU Start insulin drip Chemistry every 6 hrs Urinalysis reflex to culture Chest Xray Cardiac monitoring. (3) Abdominal pain: Qualifiers: Abdominal location: left lower quadrant Qualified Code(s): R10.32 - Left lower quadrant pain Code(s): R10.9 - Unspecified abdominal pain Status: Acute Assessment and Plan: Unspecified LLQ pain despite pain management CT scan abdomen without acute findings Somewhat improved after relief of constipation Continue pain management and bowel regimen. (4) Constipation: Code(s): K59.00 - Constipation, unspecified Status: Inactive Assessment and Plan: Continue bowel regimen with colace, miralax and lactulose PRN. (5) Chest pain: Qualifiers: Chest pain type: unspecified Qualified Code(s): R07.9 - Chest pain, unspecified Code(s): R07.9 - Chest pain, unspecified Status: Acute Assessment and Plan: Patient was admitted with chest pain that seems atypical in nature. She had to negative sets of cardiac enzymes. Her chest pain had resolved after she received morphine for her abdominal pain. Her chest pain has not recurred. She had a CT of the chest abdomen pelvis which demonstrated right upper lobe collapse likely from underlying perihilar bronchogenic carcinoma for which she already had a prior bronchoscopy at [place]. She also had metastatic mediastinal lymphadenopathy and liver lesions could be cysts versus metastatic disease. Again chest pain was resolved at the time of my examination. Likely related to recently diagnosed lung cancer. Scheduled for palliative radiation therapy at [facility]. (6) Congestive heart failure (CHF): Qualifiers: Heart failure chronicity: unspecified Heart failure type: unspecified Qualified Code(s): I50.9 - Heart failure, unspecified Code(s): I50.9 - Heart failure, unspecified Status: Acute (7) Legally blind: Code(s): H54.8 - Legal blindness, as defined in [place] Status: Inactive Assessment and Plan: Fall precautions (8) COPD (chronic obstructive pulmonary disease): Qualifiers: COPD type: unspecified COPD Qualified Code(s): J44.9 - Chronic obstructive pulmonary disease, unspecified Code(s): J44.9 - Chronic obstructive pulmonary disease, unspecified Status: Acute Assessment and Plan: currently no active COPD exacerbation Additional Plan Patient has been admitted as observation status. Subjective Date/time seen: 03/06/21 10:02 S : PAtient was examined at the bedside. She had a large bowel movement. She reports LLQ pain. She does not show signs of disctress and was sleeping comfortably when I entered the room. Review of Systems Review of Systems: All systems reviewed & are unremarkable except as noted in HPI and below Constitutional: Constitutional: Reports no additional constitutional complaints Eyes: Eyes: Reports no additional eye complain
[2021-03-06 14:25] LABS: Basophils Percent Auto 0.3 % (0.2-1.2); Eosinophils Absolute Auto 0.1 K/mm3 (0-0.3); Eosinophils Percent Auto 0.9 % (0-4.4); Hematocrit 37.3 % (37.0-47.0); Hemoglobin 11.5 g/dL (12.0-15.0); Immature Granulocyte Absolute 0.02 K/mm3 (0.00-0.031); Immature Granulocyte Percent A 0.3 % (0-0.5); Lymphocytes Absolute Auto 0.94 K/mm3 (0.9-3.2); Lymphocytes Percent Auto 14.8 % (18.3-44.2); Mean Corpuscular HGB Conc 30.8 g/dl (32-36); Mean Corpuscular Volume 94.2 fl (80-100); Monocytes Absolute Auto 0.7 K/mm3 (0.1-0.6); Monocytes Percent Auto 11.2 % (2.6-8.5); Neutrophils Absolute Auto 4.6 K/mm3 (1.3-6.7); Neutrophils Percent Auto 72.5 % (45.5-73.1); Platelet Count Result 237 k/mm3 (150-375); Red Blood Count 3.96 M/mm3 (4.2-5.4); Red Cell Distribution Width 12.2 % (11.5-14.5); White Blood Count 6.4 K/mm3 (4.5-10.0)
[2021-03-06 14:43] LABS: Alanine Aminotransferase 48 U/L (4-35); Albumin Level 4.1 g/dL (3.5-5.1); Alkaline Phosphatase 112 U/L (38-126); Anion Gap 8 mmol/L (8-16); Aspartate Amino Transferase 40 U/L (14-36); Bilirubin,Total 0.1 mg/dL (0.2-1.3); Blood Urea Nitrogen 28 mg/dL (7-17); Calcium 9.2 mg/dL (8.4-10.2); Carbon Dioxide 28 mmol/L (22-30); Chloride 94 mmol/L (98-107); Estimated CRCL calculation 36 ml/min; Estimated Glomerular Filt Rate 52; Magnesium 1.9 mg/dL (1.6-2.3); Potassium 4.9 mmol/L (3.4-5.0); Sodium 130 mmol/L (137-145)
[2021-03-06 14:49] LABS: Glucose 636 mg/dL (65-110)
[2021-03-06 14:53] LABS: Beta-Hydroxybutyrate/Acetoacetate 0.09 mmol/L (0.02-0.27)
[2021-03-06 16:00] LABS: Add Urine Microscopic? YES; Appearance Urine Clear (Clear); Bilirubin Urine Negative (Negative); Blood Urine Negative (Negative); Color Urine Colorless (Yellow); Glucose Urine UA 3+ mg/dL (Negative); Ketones Urine Negative (Negative); Leukocyte Esterase Ur Trace LEU/UL (Negative); Nitrate Urine Negative (Negative); Protein Urine Negative (Negative); Specific Grav Ur 1.011 (1.001-1.035); Squamous Epithelial Cell Urine Occasional /hpf (Few); Urobilinogen Urine Negative mg/dL (<2.0)
[2021-03-06 16:39] LABS: Glucose Point of Care > 500 mg/dl (65-105)
[2021-03-06] MEDS: SODIUM CHLORIDE 0.9% IV 500 ML 999 ML IV CONT (17:55)
[2021-03-06] MEDS: INSULIN ASPART (*BKC) 100 UNITS/ML 20 UNITS SUB-Q (17:55)
[2021-03-06] MEDS: SODIUM CHLORIDE 0.9% IV 1,000 ML 100 ML IV CONT (18:51)
[2021-03-06 19:14] LABS: Glucose Point of Care 437 mg/dl (65-105)
[2021-03-06] MEDS: INSULIN ASPART (*BKC) 100 UNITS/ML 12 UNITS SUB-Q (20:25)
[2021-03-06] MEDS: BENZTROPINE MESYLATE 0.5 MG TABLET PO (21:54)
[2021-03-06] MEDS: SENNA/DOCUSATE SODIUM TABLET 1 TAB PO (21:54)
[2021-03-06] MEDS: INSULIN GLARGINE (*BKC) 100 UNITS/ML 70 UNITS SUB-Q (22:58)
[2021-03-06] MEDS: INSULIN ASPART (*BKC) 100 UNITS/ML 15 UNITS SUB-Q (22:59)
[2021-03-06 23:06] LABS: Glucose Point of Care 457 mg/dl (65-105)
[2021-03-07] VITALS (21 sets, daily range): BP systolic 96–114; BP diastolic 47–60; PULSE 84–99; RESP 14–20; TEMP 36.1–36.5; O2SAT 86–98
[2021-03-07 00:54] LABS: Glucose Point of Care 224 mg/dl (65-105)
[2021-03-07 05:41] LABS: Basophils Percent Auto 0.4 % (0.2-1.2); Eosinophils Absolute Auto 0.1 K/mm3 (0-0.3); Eosinophils Percent Auto 1.2 % (0-4.4); Hematocrit 36.5 % (37.0-47.0); Hemoglobin 11.2 g/dL (12.0-15.0); Immature Granulocyte Absolute 0.03 K/mm3 (0.00-0.031); Immature Granulocyte Percent A 0.4 % (0-0.5); Lymphocytes Absolute Auto 1.17 K/mm3 (0.9-3.2); Lymphocytes Percent Auto 17.1 % (18.3-44.2); Mean Corpuscular HGB Conc 30.7 g/dl (32-36); Mean Corpuscular Volume 94.6 fl (80-100); Mean Platelet Volume 11.6 fl (7.4-10.4); Monocytes Percent Auto 14.2 % (2.6-8.5); Neutrophils Absolute Auto 4.6 K/mm3 (1.3-6.7); Neutrophils Percent Auto 66.7 % (45.5-73.1); Platelet Count Result 231 k/mm3 (150-375); Red Blood Count 3.86 M/mm3 (4.2-5.4); Red Cell Distribution Width 12.2 % (11.5-14.5); White Blood Count 6.8 K/mm3 (4.5-10.0)
[2021-03-07 05:56] LABS: Anion Gap 8 mmol/L (8-16); Blood Urea Nitrogen 21 mg/dL (7-17); Calcium 9.2 mg/dL (8.4-10.2); Carbon Dioxide 29 mmol/L (22-30); Chloride 102 mmol/L (98-107); Estimated CRCL calculation 47 ml/min; Estimated Glomerular Filt Rate > 60; Glucose 191 mg/dL (65-110); Potassium 4.5 mmol/L (3.4-5.0); Sodium 139 mmol/L (137-145)
[2021-03-07 07:38] LABS: Glucose Point of Care 216 mg/dl (65-105)
[2021-03-07] MEDS: POTASSIUM CHLORIDE 20 MEQ TABLET.ER PO (08:44)
[2021-03-07] MEDS: polyethylene glycoL 3350 17 GM POWD.PACK PO (08:44)
[2021-03-07] MEDS: FLUTICASONE PROPIONATE 0.05% NA SPR 16 GM BTL (*BKC) 1 SPRAY NASAL ×2 (08:44→23:21)
[2021-03-07] MEDS: OLMESARTAN MEDOXOMIL 20 MG TABLET 40 MG PO (08:45)
[2021-03-07] MEDS: FUROSEMIDE 80 MG TABLET PO (08:45)
[2021-03-07] MEDS: PERPHENAZINE 2 MG TABLET PO ×3 (08:45→17:30)
[2021-03-07] MEDS: DOCUSATE SODIUM 100 MG CAPSULE PO (08:45)
[2021-03-07] MEDS: ASPIRIN 81 MG CHEWABLE TABLET PO (08:45)
[2021-03-07] MEDS: FERROUS SULFATE 324 MG TABLET PO (08:45)
[2021-03-07] MEDS: METOPROLOL SUCCINATE EXT REL 25 MG TABCR PO (08:45)
[2021-03-07] MEDS: PANTOPRAZOLE 40 MG TABLET PO (08:45)
[2021-03-07] MEDS: INSULIN ASPART (*BKC) 100 UNITS/ML SUB-Q ×3 (09:42→17:31)
--- NOTE | 2021-03-07 10:19 | HOMEO2EVAL ---
Evaluation was performed at [facility] Home Oxygen Evaluation RC: Home Oxygen (O2) Evaluation Start: 03/07/21 06:57 Freq: ONCE Status: Active Protocol: RPE Activity Type Activity Date Activity User E-Sign Co-Sign Detail Recorded Client Recorded Date Recorded By Document 03/07/21 10:06 KRM [email or web address] 03/07/21 10:19 KRM Document 03/07/21 10:07 KRM [email or web address] 03/07/21 10:19 KRM Document 03/07/21 10:12 KRM [email or web address] 03/07/21 10:19 KRM Document 03/07/21 10:15 KRM [email or web address] 03/07/21 10:19 KRM 03/07/21 03/07/21 03/07/21 10:06 10:07 10:12 Home O2 Evaluation Test Phase Resting Resting Resting Oxygen Delivery Room Air Nasal Cannula Nasal Cannula Oxygen Flow Rate (L/min) 1 2 Pulse Oximetry (90-100 %) 87 L 86 L 90 Pulse Rate (60-100 beats/min) 93 94 94 Activity Tolerance Home Oxygen Evaluation Comments Treatment Charges O2 Evaluation - Inpatient 03/07/21 10:15 Home O2 Evaluation Test Phase Exercise Oxygen Delivery Nasal Cannula Oxygen Flow Rate (L/min) 2 Pulse Oximetry (90-100 %) 89 L Pulse Rate (60-100 beats/min) 97 Activity Tolerance Fair Home Oxygen Evaluation Comments 2LPM AT REST AND WITH ACTIVITY. Treatment Charges
--- NOTE | 2021-03-07 10:19 | PCRCNOTE ---
HOME O2 EVALUATION COMPLETE. PT. CURRENTLY WEAR 2LPM AT HOME. HER NEEDS HAVE NOT CHANGED. PT. IS OKAY TO D/C WITH HER CURRENT HOME OXYGEN SETTINGS. IN THE ROOM AND AWARE.
[2021-03-07 11:27] LABS: Glucose Point of Care 346 mg/dl (65-105)
--- NOTE | 2021-03-07 15:25 | PM.IMPN ---
Progress Note: A&P Assessment and Plan (1) Lung cancer: Qualifiers: Laterality: unspecified laterality Lung location: unspecified part of lung Qualified Code(s): C34.90 - Malignant neoplasm of unspecified part of unspecified bronchus or lung Code(s): C34.90 - Malignant neoplasm of unspecified part of unspecified bronchus or lung Status: Acute Assessment and Plan: Recently diagnosed lung cancer. Scheduled for palliative radiation therapy at [facility]. (2) Diabetes mellitus with hyperglycemia: Qualifiers: Diabetes mellitus type: type 2 Diabetes mellitus mcfp insulin use: with exterminator termite use Qualified Code(s): E11.65 - Type 2 diabetes mellitus with hyperglycemia; Z79.4 - exterminator termite (current) use of insulin Code(s): E11.65 - Type 2 diabetes mellitus with hyperglycemia Status: Acute Assessment and Plan: Uncontrolled blood glucose without DKA. Normal bicarbonate. Patient blood sugars improved with IV fluids and subcutaneous doses of insulin. continue high sliding scale Lantuis increased from 60(home dose) units to 70 units. Insulin 15 units TID with meals inaddition to sliding scale Monitor accucheck AC and HS Fastign blood sugar 191; accuchecks in the 216-346 range. Monitor daily hemistry Urinalysis reflex to culture: no UTI Chest Xray: Cardiomegaly with mild interstitial edema. Cardiac monitoring. (3) Abdominal pain: Qualifiers: Abdominal location: left lower quadrant Qualified Code(s): R10.32 - Left lower quadrant pain Code(s): R10.9 - Unspecified abdominal pain Status: Acute Assessment and Plan: Unspecified LLQ pain despite pain management CT scan abdomen without acute findings Somewhat improved after relief of constipation Continue pain management and bowel regimen. (4) Constipation: Code(s): K59.00 - Constipation, unspecified Status: Inactive Assessment and Plan: Continue bowel regimen with colace, miralax and lactulose PRN. (5) Chest pain: Qualifiers: Chest pain type: unspecified Qualified Code(s): R07.9 - Chest pain, unspecified Code(s): R07.9 - Chest pain, unspecified Status: Acute Assessment and Plan: Patient was admitted with chest pain that seems atypical in nature. She had to negative sets of cardiac enzymes. Her chest pain had resolved after she received morphine for her abdominal pain. Her chest pain has not recurred. She had a CT of the chest abdomen pelvis which demonstrated right upper lobe collapse likely from underlying perihilar bronchogenic carcinoma for which she already had a prior bronchoscopy at [place]. She also had metastatic mediastinal lymphadenopathy and liver lesions could be cysts versus metastatic disease. Again chest pain was resolved at the time of my examination. Likely related to recently diagnosed lung cancer. Scheduled for palliative radiation therapy at [facility]. (6) Congestive heart failure (CHF): Qualifiers: Heart failure chronicity: unspecified Heart failure type: unspecified Qualified Code(s): I50.9 - Heart failure, unspecified Code(s): I50.9 - Heart failure, unspecified Status: Acute Assessment and Plan: Patient tolerating laying flat. No shortness of breath. Oxygen requirements at baseline. Hold lasix today and restart in AM. (7) Legally blind: Code(s): H54.8 - Legal blindness, as defined in [place] Status: Inactive Assessment and Plan: Fall precautions (8) COPD (chronic obstructive pulmonary disease): Qualifiers: COPD type: unspecified COPD Qualified Code(s): J44.9 - Chronic obstructive pulmonary disease, unspecified Code(s): J44.9 - Chronic obstructive pulmonary disease, unspecified Status: Acute Assessment and Plan: currently no active COPD exacerbation. O2 requirements checked with respiratory today and appear to be stable.
[2021-03-07 17:07] LABS: Glucose Point of Care 259 mg/dl (65-105)
[2021-03-07] MEDS: INSULIN ASPART (*BKC) 100 UNITS/ML 15 UNITS SUB-Q (17:31)
[2021-03-07] MEDS: BENZTROPINE MESYLATE 0.5 MG TABLET PO (23:21)
[2021-03-07] MEDS: SENNA/DOCUSATE SODIUM TABLET 1 TAB PO (23:21)
[2021-03-07] MEDS: INSULIN GLARGINE (*BKC) 100 UNITS/ML 70 UNITS SUB-Q (23:24)
[2021-03-07 23:31] LABS: Glucose Point of Care 250 mg/dl (65-105)
[2021-03-08] VITALS (7 sets, daily range): BP systolic 111; BP diastolic 50; PULSE 82–96; RESP 16–24; TEMP 36.1; O2SAT 90–98
[2021-03-08 05:46] LABS: Basophils Percent Auto 0.3 % (0.2-1.2); Eosinophils Absolute Auto 0.1 K/mm3 (0-0.3); Eosinophils Percent Auto 1.1 % (0-4.4); Hematocrit 37.6 % (37.0-47.0); Hemoglobin 11.9 g/dL (12.0-15.0); Immature Granulocyte Absolute 0.02 K/mm3 (0.00-0.031); Immature Granulocyte Percent A 0.3 % (0-0.5); Lymphocytes Absolute Auto 1.27 K/mm3 (0.9-3.2); Lymphocytes Percent Auto 19.1 % (18.3-44.2); Mean Corpuscular HGB Conc 31.6 g/dl (32-36); Mean Corpuscular Hemoglobin 29.1 pg (26-34); Mean Corpuscular Volume 91.9 fl (80-100); Mean Platelet Volume 11.4 fl (7.4-10.4); Monocytes Absolute Auto 0.9 K/mm3 (0.1-0.6); Monocytes Percent Auto 13.5 % (2.6-8.5); Neutrophils Absolute Auto 4.4 K/mm3 (1.3-6.7); Neutrophils Percent Auto 65.7 % (45.5-73.1); Platelet Count Result 219 k/mm3 (150-375); Red Blood Count 4.09 M/mm3 (4.2-5.4); Red Cell Distribution Width 12.2 % (11.5-14.5); White Blood Count 6.7 K/mm3 (4.5-10.0)
[2021-03-08 06:15] LABS: Anion Gap 9 mmol/L (8-16); Blood Urea Nitrogen 19 mg/dL (7-17); Calcium 9.5 mg/dL (8.4-10.2); Carbon Dioxide 28 mmol/L (22-30); Chloride 100 mmol/L (98-107); Estimated CRCL calculation 47 ml/min; Estimated Glomerular Filt Rate > 60; Glucose 235 mg/dL (65-110); Potassium 4.3 mmol/L (3.4-5.0); Sodium 137 mmol/L (137-145)
[2021-03-08 07:30] LABS: Glucose Point of Care 202 mg/dl (65-105)
--- NOTE | 2021-03-08 08:47 | PM.IMPN ---
Progress Note: A&P Assessment and Plan (1) Lung cancer: Qualifiers: Laterality: unspecified laterality Lung location: unspecified part of lung Qualified Code(s): C34.90 - Malignant neoplasm of unspecified part of unspecified bronchus or lung Code(s): C34.90 - Malignant neoplasm of unspecified part of unspecified bronchus or lung Status: Acute Assessment and Plan: Recently diagnosed lung cancer. Scheduled for palliative radiation therapy at [facility]. (2) Diabetes mellitus with hyperglycemia: Qualifiers: Diabetes mellitus type: type 2 Diabetes mellitus longterm insulin use: with terminal clerk use Qualified Code(s): E11.65 - Type 2 diabetes mellitus with hyperglycemia; Z79.4 - termite renewal inspector (current) use of insulin Code(s): E11.65 - Type 2 diabetes mellitus with hyperglycemia Status: Acute Assessment and Plan: Uncontrolled blood glucose without DKA. Normal bicarbonate. Patient blood sugars improved with IV fluids and subcutaneous doses of insulin. continue high sliding scale Lantuis increased from 60(home dose) units to 70 units. Insulin 15 units TID with meals inaddition to sliding scale Monitor accucheck AC and HS Fastign blood sugar 191; accuchecks in the 216-346 range. Monitor daily hemistry Urinalysis reflex to culture: no UTI Chest Xray: Cardiomegaly with mild interstitial edema. Cardiac monitoring. (3) Abdominal pain: Qualifiers: Abdominal location: left lower quadrant Qualified Code(s): R10.32 - Left lower quadrant pain Code(s): R10.9 - Unspecified abdominal pain Status: Acute Assessment and Plan: Unspecified LLQ pain despite pain management CT scan abdomen without acute findings Somewhat improved after relief of constipation Continue pain management and bowel regimen. (4) Constipation: Code(s): K59.00 - Constipation, unspecified Status: Inactive Assessment and Plan: Continue bowel regimen with colace, miralax and lactulose PRN. (5) Chest pain: Qualifiers: Chest pain type: unspecified Qualified Code(s): R07.9 - Chest pain, unspecified Code(s): R07.9 - Chest pain, unspecified Status: Acute Assessment and Plan: Patient was admitted with chest pain that seems atypical in nature. She had to negative sets of cardiac enzymes. Her chest pain had resolved after she received morphine for her abdominal pain. Her chest pain has not recurred. She had a CT of the chest abdomen pelvis which demonstrated right upper lobe collapse likely from underlying perihilar bronchogenic carcinoma for which she already had a prior bronchoscopy at [place]. She also had metastatic mediastinal lymphadenopathy and liver lesions could be cysts versus metastatic disease. Again chest pain was resolved at the time of my examination. Likely related to recently diagnosed lung cancer. Scheduled for palliative radiation therapy at [facility]. (6) Congestive heart failure (CHF): Qualifiers: Heart failure chronicity: unspecified Heart failure type: unspecified Qualified Code(s): I50.9 - Heart failure, unspecified Code(s): I50.9 - Heart failure, unspecified Status: Acute Assessment and Plan: Patient tolerating laying flat. No shortness of breath. Oxygen requirements at baseline. Hold lasix today and restart in AM. (7) Legally blind: Code(s): H54.8 - Legal blindness, as defined in [place] Status: Inactive Assessment and Plan: Fall precautions (8) COPD (chronic obstructive pulmonary disease): Qualifiers: COPD type: unspecified COPD Qualified Code(s): J44.9 - Chronic obstructive pulmonary disease, unspecified Code(s): J44.9 - Chronic obstructive pulmonary disease, unspecified Status: Acute Assessment and Plan: currently no active COPD exacerbation. O2 requirements checked with respiratory today and appear to be stable.
[2021-03-08] MEDS: FLUTICASONE PROPIONATE 0.05% NA SPR 16 GM BTL (*BKC) 1 SPRAY NASAL (08:52)
[2021-03-08] MEDS: PERPHENAZINE 2 MG TABLET PO (08:53)
[2021-03-08] MEDS: INSULIN ASPART (*BKC) 100 UNITS/ML SUB-Q (08:53)
[2021-03-08] MEDS: polyethylene glycoL 3350 17 GM POWD.PACK PO (08:53)
[2021-03-08] MEDS: INSULIN ASPART (*BKC) 100 UNITS/ML 15 UNITS SUB-Q (08:53)
[2021-03-08] MEDS: POTASSIUM CHLORIDE 20 MEQ TABLET.ER PO (08:54)
[2021-03-08] MEDS: ASPIRIN 81 MG CHEWABLE TABLET PO (08:54)
[2021-03-08] MEDS: METOPROLOL SUCCINATE EXT REL 25 MG TABCR PO (08:54)
[2021-03-08] MEDS: PANTOPRAZOLE 40 MG TABLET PO (08:54)
[2021-03-08] MEDS: DOCUSATE SODIUM 100 MG CAPSULE PO (08:55)
[2021-03-08] MEDS: FERROUS SULFATE 324 MG TABLET PO (08:55)
[2021-03-08] MEDS: OLMESARTAN MEDOXOMIL 20 MG TABLET 40 MG PO (08:55)
[2021-03-08 11:42] LABS: Glucose Point of Care 288 mg/dl (65-105)
--- NOTE | 2021-03-08 12:39 | PM.DS ---
DS: Admitting Diagnosis Discharge Date 03/08/2021 Admitting Diagnosis Left chest pain DS: Discharge Diagnosis Discharge Diagnosis (1) Lung cancer: Qualifiers: Laterality: unspecified laterality Lung location: unspecified part of lung Qualified Code(s): C34.90 - Malignant neoplasm of unspecified part of unspecified bronchus or lung Code(s): C34.90 - Malignant neoplasm of unspecified part of unspecified bronchus or lung Status: Acute Assessment and Plan: Recently diagnosed lung cancer. Scheduled for palliative radiation therapy already scheduled at [facility]. (2) Diabetes mellitus with hyperglycemia: Qualifiers: Diabetes mellitus buttermilk drier operator insulin use: with assisted use Diabetes mellitus type: type 2 Qualified Code(s): E11.65 - Type 2 diabetes mellitus with hyperglycemia; Z79.4 - jail (current) use of insulin Code(s): E11.65 - Type 2 diabetes mellitus with hyperglycemia Status: Acute Assessment and Plan: Uncontrolled blood glucose without DKA. Patient blood sugars improved with IV fluids and subcutaneous doses of insulin. Home Lantus increased from 60(home dose) units to 70 units. Insulin 15 units TID with meals in addition to sliding scale (3) Abdominal pain: Qualifiers: Abdominal location: left lower quadrant Qualified Code(s): R10.32 - Left lower quadrant pain Code(s): R10.9 - Unspecified abdominal pain Status: Acute Assessment and Plan: Unspecified LLQ pain despite pain management CT scan abdomen without acute findings mild constipation issues. (4) Constipation: Code(s): K59.00 - Constipation, unspecified Status: Inactive Assessment and Plan: Continue bowel regimen with colace, miralax and lactulose PRN. (5) Chest pain: Qualifiers: Chest pain type: unspecified Qualified Code(s): R07.9 - Chest pain, unspecified Code(s): R07.9 - Chest pain, unspecified Status: Acute Assessment and Plan: Patient was admitted with chest pain that seems atypical in nature. She had to negative sets of cardiac enzymes. Her CT of the chest abdomen pelvis which demonstrated right upper lobe collapse likely from underlying perihilar bronchogenic carcinoma for which she already had a prior bronchoscopy at [place]. She also had metastatic mediastinal lymphadenopathy and liver lesions could be cysts versus metastatic disease. (6) Congestive heart failure (CHF): Qualifiers: Heart failure chronicity: unspecified Heart failure type: unspecified Qualified Code(s): I50.9 - Heart failure, unspecified Code(s): I50.9 - Heart failure, unspecified Status: Chronic Assessment and Plan: chronic and stable cont home regime (7) Legally blind: Code(s): H54.8 - Legal blindness, as defined in [place] Status: Inactive Assessment and Plan: Known history of blindness (8) COPD (chronic obstructive pulmonary disease): Qualifiers: COPD type: unspecified COPD Qualified Code(s): J44.9 - Chronic obstructive pulmonary disease, unspecified Code(s): J44.9 - Chronic obstructive pulmonary disease, unspecified Status: Chronic Assessment and Plan: Chronic and stable DS: Summary Hospital Course Hospital Course: 81-year-old female with a past medical history of lung cancer, chronic hypoxic respiratory, CHF, and type 2 diabetes mellitus who presented to the ER with left-sided chest pain and left lower quadrant abdominal pain. The patient is only a fair to poor historian. The patient has been having intermittent left chest pain with radiation into her left neck and back. She reports the pain is severe when it occurs. She denies any relieving her eliciting factors. She has not noticed any change in her dyspnea from baseline. She does have known lung cancer and is due to start chemotherapy at [facility] in approximately 7 days.
== END 2021-03-08 13:57 | disposition home or self-care (01) | DRG 861 ==
LOC: ANHED 04:54 → ANH2MED 06:10
PROVIDERS: Emergency Medicine; Internal Medicine; Admitting Provider Internal Medicine; Emergency Provider Emergency Medicine; PCP Internal Medicine Infectious Disease; Visit Provider Family Medicine
DX: G89.3 Neoplasm related pain (acute) (chronic) (principal); C34.90 Malignant neoplasm of unspecified part of unspecified bronchus or lung; E11.65 Type 2 diabetes mellitus with hyperglycemia; H54.8 Legal blindness, as defined in USA; J44.9 Chronic obstructive pulmonary disease, unspecified; J96.11 Chronic respiratory failure with hypoxia; I50.9 Heart failure, unspecified; C78.1 Secondary malignant neoplasm of mediastinum; G47.30 Sleep apnea, unspecified; K59.00 Constipation, unspecified; E66.01 Morbid (severe) obesity due to excess calories; K21.9 Gastro-esophageal reflux disease without esophagitis; Z79.4 Long term (current) use of insulin; Z99.81 Dependence on supplemental oxygen; Z87.891 Personal history of nicotine dependence; Z68.37 Body mass index [BMI] 37.0-37.9, adult
CPT/HCPCS: 36415; 71045; 71275; 74177; 80048; 80053; 81001; 82010; 82948; 83735; 83880; 84100; 84132; 84484; 85025; 85027; 85610; 85730; 87077; 87086; 87088; 87186; 93005; 94618; 94640; 96361; 96374; 97110; 97161; 97165; 97535; 99285; A9270; G0378; J1815; J2270; J7030; J7040; Q9967

== ENCOUNTER 2021-03-29 19:14 | Emergency (ER) | payer MEDICARE, MEDICAID, SELFPAY ==
--- NOTE | ~2021-03-29 | CT_ITS ---
EXAMINATION: CTA chest PE protocol EXAM DATE: 03/29/2021 21:59 INDICATION: Midsternal chest pain. Stage IV lung cancer. TECHNIQUE: Spiral CTA of the chest (pulmonary arteries) was performed with 100 cc Omnipaque 350 intr avenous contrast injection. Images were acquired during the pulmonary arterial phase. Coronal maxi mum intensity projection 3D-reconstructions were created by the technologist on dedicated workstation . Axial, coronal and sagittal reformatted images were reviewed. The dose-length product (DLP) for t his examination was 735.06 mGy-cm. The exposure was tailored according to patient size (auto mA exp osure control), and iterative reconstruction (ASIR) was used as additional dose reduction technique. Comparison is made to prior examination from 03/03/2021. FINDINGS: The main, central pulmonary arteries are dilated which can indicate elevated pulmonary palak rial pressure, pulmonary arterial hypertension. Pulmonary arteries are well opacified and without in traluminal filling defects. No thoracic aortic dissection. Again there is completely collapsed left upper lobe, occluded left upper lobe segmental bronchus, het erogeneous enhancement of the left upper lobe from malignancy and atelectasis. Again there is patholo gically enlarged aortopulmonary window metastatic lymphadenopathy, region measuring 2.2 x 1.6 cm. Sma ller prevascular metastatic lymph nodes. Mild emphysema. There are no pleural or pericardial effusions. There is no pneumothorax. Heart no rmal in size. There is mild coronary arterial calcification, arterial sclerosis. There is 2.7 cm r ight liver lesion could be cyst but can't exclude metastatic lesion. There is small to moderate slidi ng gastroesophageal hiatal hernia. . There is right adrenal gland 1.5 cm, indeterminate. No osteobl astic or osteolytic lesions identified. IMPRESSION: 1. Left upper lobe malignancy, metastatic mediastinal lymphadenopathy unchanged. 2. Dilated pulmonary arteries without emboli. 3. Indeterminate right adrenal gland lesion. 4. Liver lesion or likely cysts than metastatic disease. 5. Small to moderate hiatal hernia. Reviewed, dictated and finalized at location A. DIRECTOR IMPRESSION: 1. Left upper lobe malignancy, metastatic mediastinal lymphadenopathy unchange d. 2. Dilated pulmonary arteries without emboli. 3. Indeterminate right adrenal gland lesion. 4. Liver lesion or likely cysts than metastatic disease. 5. Small to moderate hiatal hernia.
--- NOTE | ~2021-03-29 | XR_ITS ---
EXAMINATION: XR chest 2V EXAM DATE: 03/29/2021 20:22 INDICATION: Midsternal chest pain X Few Hours Hx Stage 4 Lung Cancer, CHF,COPD. TECHNIQUE: Frontal and lateral projections of the chest obtained and reviewed. Comparison is made to prior examination from 03/07/2021. FINDINGS: Large cardial mediastinal silhouette unchanged. The left upper lobe collapse from suspected lung cancer is always difficult to appreciate on chest x-ray. No evidence of any superimposed new or acute airspace disease. No pneumothorax. There is aortic arteriosclerosis. There are bony degenerati ve changes. IMPRESSION: No acute cardiopulmonary findings. Enlarged cardiac mediastinal silhouette. Reviewed, dictated and finalized at location A. INUM POLISHER IMPRESSION: No acute cardiopulmonary findings. Enlarged cardiac mediastinal si lhouette.
[2021-03-29 19:19] VITALS: BP 97/72; PULSE 97; RESP 14; TEMP 36.7; O2SAT 99
--- NOTE | 2021-03-29 19:49 | ECG_ITS ---
Measurements Intervals [place] Rate: 95 P: 41 MN: 137 QRS: 27 QRSD: 89 T: 16 QT: 372 QTc: 468 Interpretive Statements SINUS RHYTHM NONSPECIFIC ST ELEVATION IN ANTERIOR LEADS BORDERLINE T WAVE ABNORMALITY- INFERIOR LEADS BASELINE ARTIFACT- I, II, III, AVR, AVL, AVF, V1, V3-V6 BORDERLINE ECG Electronically Signed On 03-30-2021 7:26:05 HEEL GOUGER by Linwood Botello D.O.
--- NOTE | 2021-03-29 19:52 | ED.GENADULT ---
HPI - General Adult General Chief complaint: Chest Pain Stated complaint: CP Time Seen by Provider: 03/29/21 19:35 Source: patient and RN notes reviewed History of Present Illness HPI narrative: Patient is a 81 y/o female complaining of midsternal chest pain today. She describes her pain as sharp and rates it as 10/10. She states that her pain started around noon and stopped around 5:00 PM. There is no known alleviating or exacerbating factor, but her pain stopped spontaneously. She has no SOB. She has known history of lung cancer. Related Data Home Medications Medication Instructions Recorded Confirmed Breo Ellipta 1 inh INHALATION DAILY 10/07/20 03/03/21 Spiriva with HandiHaler 1 cap INHALATION DAILY 10/07/20 03/03/21 albuterol sulfate [Ventolin HFA] 2 puff INHALATION Q4H PRN 10/07/20 03/03/21 ferrous sulfate 325 mg PO DAILY 10/07/20 03/03/21 furosemide 80 mg PO DAILY 10/07/20 03/03/21 insulin lispro [Humalog KwikPen See Rx Instructions .ROUTE .COMPLEX 10/07/20 03/03/21 Insulin] olmesartan 40 mg PO DAILY 10/07/20 03/03/21 pantoprazole 40 mg PO QAM 10/07/20 03/03/21 perphenazine 2 mg PO TID 10/07/20 03/03/21 rosuvastatin 10 mg PO DAILY 10/07/20 03/03/21 aspirin 81 mg PO DAILY 03/03/21 03/03/21 benztropine 0.5 mg PO HS 03/03/21 03/03/21 metoprolol succinate 25 mg PO DAILY 03/03/21 03/03/21 Allergies Allergy/AdvReac Type Severity Reaction Status Date / Time Penicillins Allergy Unknown Itching Verified 03/03/21 06:44 Review of Systems Constitutional: Constitutional: Denies chills, Denies fever(s), Denies headache(s) and Denies weakness Eyes: Eyes: Denies blurry vision ENT: Denies headache(s) and Denies neck pain Cardiovascular: Cardiovascular: Reports chest pain and Denies dyspnea Respiratory: Respiratory: Denies cough and Denies dyspnea Gastrointestinal: Gastrointestinal: Denies abdominal pain, Denies diarrhea, Denies nausea and Denies vomiting Genitourinary: Genitourinary: Denies hematuria and Denies dysuria Musculoskeletal: Musculoskeletal: Denies back pain and Denies neck pain Neurologic: Denies headache(s) and Denies weakness PMFSH Past Medical History Medical History Chronic anemia Congestive heart failure (CHF) COPD (chronic obstructive pulmonary disease) GERD (gastroesophageal reflux disease) Hyperglycemia due to type 2 diabetes mellitus Hyperlipidemia Legally blind Lung cancer Sleep apnea Surgical History Surgical History History of bronchoscopy (~01/2021) Status post cataract surgery Family History Family History Father Cerebrovascular accident Mother Chronic bronchitis Social History Social History Social History: She lives with her son Esteban. As she smoked a half a pack of cigarettes per day from the time she was a teenager until the age of 78. She quit smoking 3 years ago. She denies any significant alcohol use. She denies any illicit substance use. 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 Surrogate decision maker: Esteban (son) and Lisa (daughter) Smoking packs per day: 0.5 Smoking cigarettes per day: 10.0 Years smoked: 64 Smoking pack-years: 32.00 Smoking status: Never smoker Smoking end date: 10/07/18 Alcohol intake: never Substance use: never Gender identity (if verbalized by the patient): Female Spiritual care concerns: No Exam Const: General: no acute distress and well developed Orientation/consciousness: oriented to person, oriented to place, oriented to time and patient oriented x3 HENMT: Head: normocephalic Ears: external ears normal General nose exam: Normal external nose present Eyes: General: appearance normal, both eyes and all related structures Conjunctivae: conjunctivae normal Neck: Neck: normal visual inspecti
[2021-03-29 20:10] LABS: Prothrombin Time 12.9 Seconds (11.1-14.7)
[2021-03-29 20:11] LABS: Basophils Percent Auto 0.4 % (0.2-1.2); Eosinophils Absolute Auto 0.1 K/mm3 (0-0.3); Hematocrit 36.5 % (37.0-47.0); Hemoglobin 11.3 g/dL (12.0-15.0); Immature Granulocyte Absolute 0.02 K/mm3 (0.00-0.031); Immature Granulocyte Percent A 0.4 % (0-0.5); Lymphocytes Absolute Auto 0.55 K/mm3 (0.9-3.2); Lymphocytes Percent Auto 11.2 % (18.3-44.2); Mean Corpuscular Hemoglobin 28.4 pg (26-34); Mean Corpuscular Volume 91.7 fl (80-100); Mean Platelet Volume 11.7 fl (7.4-10.4); Monocytes Absolute Auto 0.6 K/mm3 (0.1-0.6); Monocytes Percent Auto 11.4 % (2.6-8.5); Neutrophils Absolute Auto 3.7 K/mm3 (1.3-6.7); Neutrophils Percent Auto 75.6 % (45.5-73.1); Partial Thromboplastin Time 23.8 SECONDS (22.3-36.8); Platelet Count Result 236 k/mm3 (150-375); Red Blood Count 3.98 M/mm3 (4.2-5.4); Red Cell Distribution Width 12.5 % (11.5-14.5); White Blood Count 4.9 K/mm3 (4.5-10.0)
[2021-03-29 20:28] LABS: Anion Gap 10 mmol/L (8-16); Blood Urea Nitrogen 17 mg/dL (7-17); Carbon Dioxide 29 mmol/L (22-30); Chloride 98 mmol/L (98-107); Estimated CRCL calculation 41 ml/min; Estimated Glomerular Filt Rate > 60; Glucose 380 mg/dL (65-110); Potassium 3.9 mmol/L (3.4-5.0); Sodium 137 mmol/L (137-145)
[2021-03-29] MEDS: ASPIRIN 81 MG CHEWABLE TABLET 324 MG PO (20:33)
[2021-03-29 20:40] LABS: Troponin I 0.018 ng/mL (0.000-0.034)
[2021-03-29 20:47] LABS: D Dimer 0.67 ug/mL (<0.48)
[2021-03-29 21:05] VITALS: BP 101/67; PULSE 87; RESP 18; O2SAT 99
[2021-03-30 00:41] LABS: Troponin I 0.017 ng/mL (0.000-0.034)
[2021-03-30 01:26] VITALS: BP 109/77; PULSE 83; RESP 16; O2SAT 95
--- NOTE | 2021-03-30 07:12 | PC.NURSE ---
Received report on pt. Assumed care of patient.
[2021-03-30 08:01] VITALS: BP 136/97; PULSE 71; RESP 14; TEMP 36.3; O2SAT 97
== END 2021-03-30 08:04 | disposition home or self-care (01) ==
PROVIDERS: Emergency Provider Emergency Medicine; PCP Internal Medicine Infectious Disease
DX: R07.9 Chest pain, unspecified (principal); C34.12 Malignant neoplasm of upper lobe, left bronchus or lung; D64.9 Anemia, unspecified; I50.9 Heart failure, unspecified; J44.9 Chronic obstructive pulmonary disease, unspecified; K21.9 Gastro-esophageal reflux disease without esophagitis; E11.9 Type 2 diabetes mellitus without complications; E78.5 Hyperlipidemia, unspecified; G47.30 Sleep apnea, unspecified; H54.8 Legal blindness, as defined in USA; Z87.891 Personal history of nicotine dependence; Z79.4 Long term (current) use of insulin; Z79.82 Long term (current) use of aspirin; R94.31 Abnormal electrocardiogram [ECG] [EKG]; K44.9 Diaphragmatic hernia without obstruction or gangrene; E27.9 Disorder of adrenal gland, unspecified; Z98.49 Cataract extraction status, unspecified eye
CPT/HCPCS: 36415; 71046; 71275; 80048; 84484; 85025; 85380; 85610; 85730; 93005; 99284; A9270; Q9967

== ENCOUNTER 2021-09-01 08:35 | Emergency (ER) | payer MEDICARE, MEDICAID, SELFPAY ==
--- NOTE | ~2021-09-01 | XR_ITS ---
EXAMINATION: XR foot LT min 3V EXAM DATE: 09/01/2021 09:11 INDICATION: Pain To Big Toe Lateral Foot TECHNIQUE: Left foot dorsoplantar, lateral and oblique projections obtained and reviewed. There is n o prior study for comparison. FINDINGS: Left metatarsal bones unremarkable. There are no bony erosions identified. There are no acute fractures or dislocations identified. There is no subcutaneous gas. The soft tissue is unrem arkable. There are no radiopaque foreign bodies. IMPRESSION: 1. Unremarkable XR foot LT min 3V exam. Reviewed, dictated and finalized at location B.
[2021-09-01 08:38] VITALS: BP 107/63; PULSE 92; RESP 18; TEMP 37.2; O2SAT 95
[2021-09-01] MEDS: traMADol HCL (*CRX) 50 MG TABLET PO (08:58)
[2021-09-01 08:59] LABS: Glucose Point of Care 381 mg/dl (65-105)
[2021-09-01] MEDS: INSULIN HUMAN REGULAR (*BKC) 100 UNITS/ML 15 UNITS SUB-Q (09:11)
--- NOTE | 2021-09-01 09:35 | ED.LOWEXIN ---
HPI - Extremity Injury (Lower) General Chief Complaint: Extremity Injury, Lower Stated Complaint: left foot pain Time Seen by Provider: 09/01/21 08:36 Source: patient and RN notes reviewed Mode of arrival: ambulatory Limitations: no limitations History of Present Illness HPI Narrative: This is an 81 year old female with history of asthma, blindness, DM, anemia who presents for evaluation of a left foot injury. She states last night she accidentally rolled out of bed while she was sleeping. She took Aleve last night for her pain. She is having pain this morning so she came to ER to see if you has fracture. She is having pain on top of left foot from big toe to the middle. She has not taken anything for pain. She denies hitting her head, LOC or taking blood thinners. She denies any other injuries from fall. Her son states she just ate breakfast and she will need her insulin. Related Data Home Medications Medication Instructions Recorded Confirmed Breo Ellipta 1 inh INHALATION DAILY 10/07/20 03/03/21 Spiriva with HandiHaler 1 cap INHALATION DAILY 10/07/20 03/03/21 albuterol sulfate [Ventolin HFA] 2 puff INHALATION Q4H PRN 10/07/20 03/03/21 ferrous sulfate 325 mg PO DAILY 10/07/20 03/03/21 furosemide 80 mg PO DAILY 10/07/20 03/03/21 insulin lispro [Humalog KwikPen See Rx Instructions .ROUTE .COMPLEX 10/07/20 03/03/21 Insulin] olmesartan 40 mg PO DAILY 10/07/20 03/03/21 pantoprazole 40 mg PO QAM 10/07/20 03/03/21 perphenazine 2 mg PO TID 10/07/20 03/03/21 rosuvastatin 10 mg PO DAILY 10/07/20 03/03/21 aspirin 81 mg PO DAILY 03/03/21 03/03/21 benztropine 0.5 mg PO HS 03/03/21 03/03/21 metoprolol succinate 25 mg PO DAILY 03/03/21 03/03/21 hyoscyamine sulfate mg 09/01/21 lorazepam 09/01/21 ondansetron HCl 09/01/21 Allergies Allergy/AdvReac Type Severity Reaction Status Date / Time Penicillins Allergy Unknown Itching Verified 09/01/21 08:44 Review of Systems Review of Systems: All systems reviewed & are unremarkable except as noted in HPI and below PMFSH Past Medical History Medical History Chronic anemia Congestive heart failure (CHF) COPD (chronic obstructive pulmonary disease) GERD (gastroesophageal reflux disease) Hyperglycemia due to type 2 diabetes mellitus Hyperlipidemia Legally blind Lung cancer Sleep apnea Surgical History Surgical History History of bronchoscopy (~01/2021) Status post cataract surgery Family History Family History Father Cerebrovascular accident Mother Chronic bronchitis Social History Social History Social History: She lives with her son Esteban. As she smoked a half a pack of cigarettes per day from the time she was a teenager until the age of 78. She quit smoking 3 years ago. She denies any significant alcohol use. She denies any illicit substance use. 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 Surrogate decision maker: Esteban (son) and Lisa (daughter) Smoking packs per day: 0.5 Smoking cigarettes per day: 10.0 Years smoked: 64 Smoking pack-years: 32.00 Smoking status: Never smoker Smoking end date: 10/07/18 Alcohol intake: never Substance use: never Gender identity (if verbalized by the patient): Female Spiritual care concerns: No Exam Const: General: no acute distress and alert Nutritional Appearance: obese Orientation/consciousness: patient oriented x3 HENMT: Head: normocephalic and atraumatic Face and sinus: normal facial exam, sinuses nontender and face symmetric Throat: posterior oropharynx normal, tonsils normal and uvula midline Neck: Neck: normal visual inspection Chest: Chest palpation & inspection: normal inspection of the chest and no tenderness Resp: Effort & Inspection: normal respira
== END 2021-09-01 09:57 | disposition home or self-care (01) ==
PROVIDERS: Emergency Provider General Practice; PCP Internal Medicine Infectious Disease
DX: S90.32XA Contusion of left foot, initial encounter (principal); I50.9 Heart failure, unspecified; J44.9 Chronic obstructive pulmonary disease, unspecified; K21.9 Gastro-esophageal reflux disease without esophagitis; E78.5 Hyperlipidemia, unspecified; D64.9 Anemia, unspecified; G47.30 Sleep apnea, unspecified; H54.8 Legal blindness, as defined in USA; Z85.118 Personal history of other malignant neoplasm of bronchus and lung; Z87.891 Personal history of nicotine dependence; Z79.4 Long term (current) use of insulin; W06.XXXA Fall from bed, initial encounter
CPT/HCPCS: 73630; 82948; 99283; A9270; J1815

== ENCOUNTER 2022-04-09 21:51 | Emergency (ER) | payer MEDICARE, MEDICAID, SELFPAY ==
[2022-04-09] VITALS (13 sets, daily range): BP systolic 184; BP diastolic 89; PULSE 110–116; RESP 18–34; TEMP 37; O2SAT 87–100
--- NOTE | 2022-04-09 | ECG_ITS ---
Measurements Intervals [place] Rate: 116 P: 35 MI: 130 QRS: 76 QRSD: 84 T: 68 QT: 344 QTc: 479 Interpretive Statements SINUS TACHYCARDIA ABNORMAL ECG COMPARED TO ECG 03/29/2021 19:31:18 SINUS TACHYCARDIA NOW PRESENT Electronically Signed On 04-10-2022 7:51:47 WATER PUMP INSTALLER by Linwood Botello D.O.
--- NOTE | ~2022-04-09 | CT_ITS ---
EXAMINATION: CTA chest PE protocol DATE: 04/10/2022 08:28 ARM REST BUILDER INDICATION: Tachycardia. Elevated d-dimer. History of lung cancer. TECHNIQUE: Computed tomographic angiography (CTA) of the chest was performed with 100 mL Omnipaque-35 0 intravenous contrast. The dose-length product was 844.30 mGy-cm. Maximum intensity projection 3D-re constructions of the aorta and other arteries were constructed by the technologist on a separate work station. Automated exposure control and iterative reconstruction technique were employed. COMPARISON: CT dated 03/29/2021 and 03/03/2021. FINDINGS: Small pleural effusions. Study is technically adequate. There is attenuation of the left up per lobe pulmonary arterial branches, possibly due to previous treatment of tumor rather than pulmona ry embolism. The remainder of the pulmonary arterial branches are well opacified without evidence for embolism. There is atherosclerosis of the aorta and the coronary arteries. There is a consolidation of the left upper lobe which may represent atelectasis, pneumonia and/or post radiation therapy marcum e. Residual neoplasm is not excluded.There is right paratracheal lymph node enlargement measuring 12 mm short axis dimension, image 68. This is new compared with prior study. There is emphysema. There i s dependent atelectasis. No pneumothorax. Moderate thoracic spondylosis. No focal lytic or blastic le sions. There are advanced degenerative changes of the shoulders, left greater than right. Stable 1.6 cm right adrenal nodule. IMPRESSION: 1. No definite pulmonary embolism. Attenuation of left upper lobe pulmonary arteries, most likely att ributable to prior radiation therapy. There is residual consolidation of the left upper lobe which is improved. Cannot exclude residual neoplasm. 2: New right paratracheal lymphadenopathy. Consider correlation with pet/CT scan. 3: Pleural effusions, left greater than right. Bibasilar compressive atelectasis. 4: Stable 1.6 cm right adrenal nodule. Reviewed, dictated and finalized at location B. REST BUILDER IMPRESSION: 1. No definite pulmonary embolism. Attenuation of left upper lobe pulmonary art eries, most likely attributable to prior radiation therapy. There is residual c onsolidation of the left upper lobe which is improved. Cannot exclude residual neoplasm. 2: New right paratracheal lymphadenopathy. Consider correlation with pet/CT sc an. 3: Pleural effusions, left greater than right. Bibasilar compressive atelectasi s. 4: Stable 1.6 cm right adrenal nodule.
--- NOTE | ~2022-04-09 | XR_ITS ---
EXAMINATION: XR chest 2V DATE: 04/09/2022 22:18 INDICATION: Shortness of breath. TECHNIQUE: Frontal and lateral views of the chest were obtained. COMPARISON: Chest 2 views 03/29/2021, chest CT 04/09/2022, 03/29/2021 FINDINGS: There are small pleural effusions. There is a diffuse interstitial pattern in the lungs. Th ere are airspace opacities in left perihilar region and left upper lung zone. No pneumothorax. The he art size is normal. IMPRESSION: 1. Airspace opacities in left perihilar region and left upper lung zone, consistent with primary bron chogenic carcinoma and changes of radiation therapy. 2. Mild pulmonary edema. 3. Small pleural effusions. Reviewed, dictated and finalized at location A. CH OPERATOR IMPRESSION: 1. Airspace opacities in left perihilar region and left upper lung zone, consis tent with primary bronchogenic carcinoma and changes of radiation therapy. 2. Mild pulmonary edema. 3. Small pleural effusions.
[2022-04-09 22:11] LABS: Basophils Percent Auto 0.4 % (0.2-1.2); Eosinophils Percent Auto 0.6 % (0-4.4); Hematocrit 33.9 % (37.0-47.0); Hemoglobin 10.5 g/dL (12.0-15.0); Immature Granulocyte Absolute 0.04 K/mm3 (0.00-0.031); Immature Granulocyte Percent A 0.6 % (0-0.5); Lymphocytes Percent Auto 11.1 % (18.3-44.2); Mean Corpuscular Hemoglobin 29.2 pg (26-34); Mean Corpuscular Volume 94.2 fl (80-100); Monocytes Percent Auto 13.8 % (2.6-8.5); Neutrophils Absolute Auto 5.3 K/mm3 (1.3-6.7); Neutrophils Percent Auto 73.5 % (45.5-73.1); Platelet Count Result 199 k/mm3 (150-375); Red Cell Distribution Width 14.1 % (11.5-14.5); White Blood Count 7.2 K/mm3 (4.5-10.0)
[2022-04-09] MEDS: ALBUTEROL SULFATE NEB 2.5 MG/3 ML INH 15 MG INHALATION (22:20)
[2022-04-09 22:22] LABS: Alanine Aminotransferase 34 U/L (6-35); Albumin Level 4.1 g/dL (3.5-5.1); Alkaline Phosphatase 101 U/L (38-126); Anion Gap 10 mmol/L (8-16); Aspartate Amino Transferase 32 U/L (14-36); Bilirubin,Total 0.3 mg/dL (0.2-1.3); Blood Urea Nitrogen 10 mg/dL (7-17); Carbon Dioxide 23 mmol/L (22-30); Chloride 103 mmol/L (98-107); Estimated CRCL calculation 37 ml/min; Estimated Glomerular Filt Rate 57; Glucose 292 mg/dL (65-110); Potassium 4.4 mmol/L (3.4-5.0); Sodium 136 mmol/L (137-145)
[2022-04-09] MEDS: IPRATROPIUM BR 0.02% INH SOLN 0.5 MG/2.5 ML VIAL 1 MG INHALATION (22:22)
[2022-04-09] MEDS: methylPREDNISolone SOD SUCC 125 MG VIAL 40 MG IV PUSH (22:26)
[2022-04-09 22:56] LABS: D Dimer 0.99 ug/mL (<0.48)
--- NOTE | 2022-04-09 23:12 | ED.SOB ---
HPI - SOB/Dyspnea General Chief Complaint: Shortness of Breath/Dyspnea Stated Complaint: SOB ON EXERTION Time Seen by Provider: 04/09/22 21:52 History of Present Illness HPI Narrative: 82-year-old female with history of lung cancer, COPD, presents with increasing difficulty breathing over the last 2 weeks, she does also have increased lower extremity swelling however she thinks that this is from her CHF. Has been using her inhaler at home but only minimal improvement increased cough, no fever or chills. Related Data Home Medications Medication Instructions Recorded Confirmed albuterol sulfate 90 mcg/actuation 2 puff inhalation Q4H PRN Wheezing 10/07/20 03/03/21 aerosol inhaler (Ventolin HFA) ferrous sulfate 325 mg (65 mg 325 mg PO DAILY 10/07/20 03/03/21 iron) tablet fluticasone furoate 200 1 inh inhalation DAILY 10/07/20 03/03/21 mcg-vilanterol 25 mcg/dose inhalation powder (Breo Ellipta) furosemide 80 mg tablet 80 mg PO DAILY 10/07/20 03/03/21 insulin lispro 100 unit/mL See Rx Instructions .Route .COMPLEX 10/07/20 03/03/21 subcutaneous pen (Humalog KwikPen (U-100) Insulin) olmesartan 40 mg tablet 40 mg PO DAILY 10/07/20 03/03/21 pantoprazole 40 mg tablet,delayed 40 mg PO QAM 10/07/20 03/03/21 release perphenazine 2 mg tablet 2 mg PO TID 10/07/20 03/03/21 rosuvastatin 10 mg tablet 10 mg PO DAILY 10/07/20 03/03/21 tiotropium bromide 18 mcg capsule 1 cap inhalation DAILY 10/07/20 03/03/21 with inhalation device (Spiriva with HandiHaler) aspirin 81 mg chewable tablet 81 mg PO DAILY 03/03/21 03/03/21 benztropine 0.5 mg tablet 0.5 mg PO HS 03/03/21 03/03/21 metoprolol succinate 25 mg 25 mg PO DAILY 03/03/21 03/03/21 tablet,extended release 24 hr hyoscyamine sulfate 0.125 mg tablet mg 09/01/21 lorazepam 0.5 mg tablet 09/01/21 ondansetron HCl 8 mg tablet 09/01/21 Allergies Allergy/AdvReac Type Severity Reaction Status Date / Time Penicillins Allergy Unknown Itching Verified 09/01/21 08:44 Review of Systems Review of Systems: CONST: No fever. HEENT: No sore throat C/V: No chest pain RESP: Cough, difficulty breathing GI: No abdominal pain : No dysuria. M/S: No joint pain. SKIN: No rash. NEURO: [No headache or focal numbness or weakness] PSYCH: [No depression] [facility] Past Medical History Medical History Chronic anemia Congestive heart failure (CHF) COPD (chronic obstructive pulmonary disease) GERD (gastroesophageal reflux disease) Hyperglycemia due to type 2 diabetes mellitus Hyperlipidemia Legally blind Lung cancer Sleep apnea Surgical History Surgical History History of bronchoscopy (~01/2021) Status post cataract surgery Family History Family History Father Cerebrovascular accident Mother Chronic bronchitis Social History Social History (Updated 04/09/22 @ 23:15 by Damaris Kenney MD) Social History: She lives with her son Esteban. As she smoked a half a pack of cigarettes per day from the time she was a teenager until the age of 78. She quit smoking 3 years ago. She denies any significant alcohol use. She denies any illicit substance use. 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 Surrogate decision maker: Esteban (son) and Lisa (daughter) Smoking packs per day: 0.5 Smoking cigarettes per day: 10.0 Years smoked: 64 Smoking pack-years: 32.00 Smoking status: Former smoker Smoking end date: 10/07/18 Alcohol intake: never Substance use: never Gender identity (if verbalized by the patient): Female Spiritual care concerns: No Exam Narrative: EXAMINATION OF ORGAN SYSTEMS/BODY AREAS: Constitutional: Vital signs per nursing GENERAL: Appears slightly dyspneic at rest HEAD: Normal with no signs of head trauma. EYES: EOMI, conjunctiva normal ENT: Hearing grossly intact LUNGS: Somewhat lab
[2022-04-09] MEDS: traMADol HCL (*CRX) 50 MG TABLET PO (23:48)
[2022-04-10] VITALS (36 sets, daily range): BP systolic 115–190; BP diastolic 50–99; PULSE 115–142; RESP 16–32; O2SAT 92–100
[2022-04-10] MEDS: ALBUTEROL SULFATE NEB 2.5 MG/3 ML INH 5 MG INHALATION (02:21)
[2022-04-10] MEDS: LORazepam INJ (*CRX) 2 MG/ML VIAL 0.5 MG IV PUSH (02:25)
--- NOTE | 2022-04-10 02:30 | PC.NURSE ---
patient requested the bedside commode tech in to assist. patient became short of breath and hypoxic. non rebreather placed o2 resolved placed back on 4 l nasal patient calm patient began to panic yelling out she cant breath and dont leave me ill patient reassured patient sitting in wheelchair comfortably. patient then assisted to bed and began to have increased sob at that time dr notified ativan and breathing treatments ordered. patient resting in bed on 6l nasal canula RT at bedside dr otto
--- NOTE | 2022-04-10 03:30 | PC.NURSE ---
called [facility] to request transport. ETA [id number]
[2022-04-10 03:43] LABS: Influenza A QL RT-PCR Negative (Negative); Influenza B QL RT-PCR Negative (Negative); RSV RNA, RT-PCR Negative (Negative); SARS-CoV-2 RNA PCR Negative
--- NOTE | 2022-04-10 04:34 | PC.NURSE ---
called [facility] for ETA update. ETA [id number]
--- NOTE | 2022-04-10 05:55 | PC.NURSE ---
[facility] here
== END 2022-04-10 06:30 | disposition hospice, home (50) ==
PROVIDERS: Emergency Provider Emergency Medicine
DX: J44.1 Chronic obstructive pulmonary disease with (acute) exacerbation (principal); Z20.822 Contact with and (suspected) exposure to COVID-19; C34.90 Malignant neoplasm of unspecified part of unspecified bronchus or lung; I50.9 Heart failure, unspecified; E78.5 Hyperlipidemia, unspecified; E11.9 Type 2 diabetes mellitus without complications; D64.9 Anemia, unspecified; K21.9 Gastro-esophageal reflux disease without esophagitis; G47.30 Sleep apnea, unspecified; H54.8 Legal blindness, as defined in USA; Z99.81 Dependence on supplemental oxygen; Z79.82 Long term (current) use of aspirin; Z79.4 Long term (current) use of insulin; Z98.49 Cataract extraction status, unspecified eye; Z87.891 Personal history of nicotine dependence; R00.0 Tachycardia, unspecified; E27.8 Other specified disorders of adrenal gland
CPT/HCPCS: 36415; 71046; 71275; 80053; 85025; 85380; 87637; 93005; 94640; 96374; 96375; 99284; A9270; J2060; J2930; Q9967

== ENCOUNTER 2022-05-09 06:12 | Inpatient (IN) | payer MEDICARE, MEDICAID, SELFPAY ==
[2022-05-09] VITALS (33 sets, daily range): BP systolic 114–165; BP diastolic 56–100; PULSE 103–127; RESP 15–38; TEMP 36.6–37.3; O2SAT 94–100; BMI 36.1
--- NOTE | 2022-05-09 | ECHO_ITS ---
Patient Info Name: Patricia Sequeira Age: 82 years : 1940 Gender: Female Ht: 63 in Wt: 220 lbs BSA: 2.16 m2 HR: 110 bpm BP: 114 / 61 mmHg Heart Rhythm: Sinus Rhythm Technical Quality: Fair Exam Date: 05/09/2022 4:13 PM Exam Location: [facility] Patient Status: Inpatient Admit Date: 05/09/2022 Staff Ordering Physician: Aruna Antunez NP Electromechanical Equipment Assembler: Aurora Alatorre RDCS Attending Provider: Baltazar Rojas MD Referring Physician: Harmony PARIKH; Exam Type: CA echo dop color flow w con Study Info Indications - CHF Complete two-dimensional, color flow and Doppler transthoracic echocardiogram is performed with contrast to opacify the left ventricle and to improve the deliniation of the left ventricle endocardial borders. Contrast/Agitated Saline Contrast/Ag. Saline: Definity Amount: 3.00 ml Administered By: Aurora Alatrore RDCS Existing IV Access: Yes IV Access Condition: patent with no signs of infiltration Summary 1. Left ventricular systolic function is hyperdynamic, estimated at >70%. 2. Left ventricular chamber dimension is normal. 3. The anterior, anterolateral and apical lateral ponce appear hypokinetic. 4. The left ventricular diastolic function is grade I diastolic dysfunction. 5. Right ventricular chamber dimension is enlarged. 6. Right ventricular systolic function is reduced. 7. There is trace mitral valve regurgitation. 8. There is trace tricuspid valve regurgitation. 9. There appears to be a moderate pericardial effusion with fibrinous material in the pericardial space. No evidence of tamponade. This was previously seen on prior study. Left Ventricle The anterior, anterolateral and apical lateral ponce appear hypokinetic. Left ventricular chamber dimension is normal. Left ventricular systolic function is hyperdynamic, estimated at >70%. There is no increased left ventricular wall thickness. The left ventricular diastolic function is grade I diastolic dysfunction. Right Ventricle Right ventricular chamber dimension is enlarged. Right ventricular systolic function is reduced. Left Atria Left atrial chamber dimension is normal. Right Atria Right atrial chamber dimension is normal. Aortic Valve The aortic valve is not well visualized. There is no aortic valve stenosis. There is no aortic valve regurgitation. Pulmonic Valve The pulmonic valve is not well visualized. Mitral Valve The mitral valve has not well visualized. There is no mitral valve stenosis. There is trace mitral valve regurgitation. Tricuspid Valve There is trace tricuspid valve regurgitation. Pericardium/Pleural There appears to be a moderate pericardial effusion with fibrinous material in the pericardial space. No evidence of tamponade. This was previously seen on prior study. Aorta The aortic root size at the sinus of Valsalva is not well visualized. Left Ventricular Outflow Tract Name Value Normal LVOT 2D LVOT Diameter 1.95 cm LVOT Doppler LVOT Peak Gradient 3 mmHg LVOT Mean Gradient
--- NOTE | ~2022-05-09 | XR_ITS ---
EXAMINATION: XR chest 1V portable DATE: 05/09/2022 06:52 INDICATION: Shortness of breath. TECHNIQUE: A single frontal view of the chest was obtained. COMPARISON: Chest 2 views 04/09/2022, chest CT 04/09/2022 FINDINGS: There are small pleural effusions. There are airspace opacities in all lung zones bilateral ly, left worse than right. No pneumothorax. The heart size is normal. There are prominent paracardial fat pads. IMPRESSION: 1. Worsened diffuse lung disease, consistent with pulmonary edema versus pneumonia and left-sided mohamud carlos alberto bronchogenic carcinoma and radiation pneumonitis. 2. Small pleural effusions with worsening on the left. Reviewed, dictated and finalized at location A. E STRANDER IMPRESSION: 1. Worsened diffuse lung disease, consistent with pulmonary edema versus pneumo dieudonne and left-sided primary bronchogenic carcinoma and radiation pneumonitis. 2. Small pleural effusions with worsening on the left.
--- NOTE | ~2022-05-09 | CT_ITS ---
Clinical Indication: Dyspnea CT Scan of the Chest with Contrast: Technique: Contiguous sections were acquired throughout the chest after intravenous administration of 100 cc of Omnipaque 350. Coronal maximum intensity projection 3-D reconstructions were created by sam frazier technologist. Dose reduction technique was used on this scan by utilizing automated exposure contr ol and iterative reconstruction technique. The dose-length product (DLP) was 839.89 mGy-cm. COMPARISON: 04/09/2022 Findings: There is no evidence of any significant mediastinal, hilar or axillary lymphadenopathy. There is no f illing defect in the pulmonary arterial tree to suggest pulmonary embolus. There is no evidence of ao rtic dissection or aneurysm. No pericardial effusion. Moderate right pleural effusion and small left pleural effusion are present, similar to prior exam. T here is mild dependent right basilar atelectatic change. Extensive left perihilar consolidation exten ding into the left upper lobe medially is similar to prior exam. Suggestion of narrowing of the right and left main stem bronchi, possibly due to prior radiation. Images through the upper abdomen reveal stable right adrenal nodule. Impression: No evidence of pulmonary embolus, aortic dissection, or aortic aneurysm. Extensive left perihilar consolidation extending to the left upper lobe is similar to prior exam. Sandra gnostic considerations include post radiation change and/or treated tumor versus pneumonia. Residual active malignancy cannot be excluded. Moderate left pleural effusion and small right pleural effusion. Stable right adrenal nodule. Reviewed, dictated and finalized at [facility]. ALT COATER Impression: No evidence of pulmonary embolus, aortic dissection, or aortic aneurysm. Extensive left perihilar consolidation extending to the left upper lobe is lashonda lar to prior exam. Diagnostic considerations include post radiation change and/ or treated tumor versus pneumonia. Residual active malignancy cannot be exclude d. Moderate left pleural effusion and small right pleural effusion. Stable right adrenal nodule.
--- NOTE | ~2022-05-09 | CT_ITS ---
EXAMINATION: CT brain wo con DATE: 05/09/2022 15:18 INDICATION: Somnolence TECHNIQUE: Computed tomography (CT) of the head was performed without intravenous contrast. Sagittal and coronal reconstructions were performed. The mA was adjusted according to patient size. Iterative reconstruction technique was employed. The dose-length product was 605.33 mGy-cm. COMPARISON: None FINDINGS: No acute intracranial hemorrhage, acute infarction or abnormal extra axial fluid collection. There is moderate scattered white matter hypoattenuation consistent with chronic small vessel ischemic diseas e. Symmetric prominence of the sulci and ventricles consistent with moderate age-appropriate diffuse cerebral volume loss. Ventricles are normal and symmetric. No mass/mass effect. Changes of right intr aocular lens replacement. The orbits, paranasal sinuses and mastoid air cells are normal. Intracrania l calcified cerebral atherosclerosis is noted. IMPRESSION: 1. No acute intracranial process. 2. Age-related changes including moderate diffuse volume loss and moderate scattered white matter hyp oattenuation consistent with chronic small vessel ischemic disease. Reviewed, dictated and finalized at location L. R OFFICER IMPRESSION: 1. No acute intracranial process. 2. Age-related changes including moderate diffuse volume loss and moderate scat tered white matter hypoattenuation consistent with chronic small vessel ischemi c disease.
--- NOTE | 2022-05-09 06:21 | ECG_ITS ---
Measurements Intervals [place] Rate: 126 P: 30 [place]: 139 QRS: 44 QRSD: 81 T: 53 QT: 329 QTc: 477 Interpretive Statements SINUS TACHYCARDIA LOW QRS VOLTAGE IN EXTREMITY LEADS [QRS DEFLECTION < 0.5 mV IN LIMB LEADS] ABNORMAL RHYTHM ECG COMPARED TO ECG 04/09/2022 21:52:07 NO SIGNIFICANT CHANGES Electronically Signed On 05-09-2022 15:34:10 CREDIT VERIFICATION CLERK by Bridgette Sandoval M.D.
[2022-05-09 06:51] LABS: Alanine Aminotransferase 42 U/L (6-35); Albumin Level 4.1 g/dL (3.5-5.1); Alkaline Phosphatase 84 U/L (38-126); Anion Gap 7 mmol/L (8-16); Aspartate Amino Transferase 37 U/L (14-36); Bilirubin,Total 0.4 mg/dL (0.2-1.3); Blood Urea Nitrogen 11 mg/dL (7-17); Calcium 8.7 mg/dL (8.4-10.2); Carbon Dioxide 26 mmol/L (22-30); Chloride 104 mmol/L (98-107); Estimated Glomerular Filt Rate 57; Glucose 322 mg/dL (65-110); Potassium 4.3 mmol/L (3.4-5.0); Sodium 137 mmol/L (137-145)
[2022-05-09 06:55] LABS: Basophils Percent Auto 0.4 % (0.2-1.2); Eosinophils Percent Auto 0.4 % (0-4.4); Hematocrit 36.9 % (37.0-47.0); Hemoglobin 11.2 g/dL (12.0-15.0); Immature Granulocyte Absolute 0.06 K/mm3 (0.00-0.031); Immature Granulocyte Percent A 0.6 % (0-0.5); Lymphocytes Absolute Auto 0.72 K/mm3 (0.9-3.2); Lymphocytes Percent Auto 7.3 % (18.3-44.2); Mean Corpuscular HGB Conc 30.4 g/dl (32-36); Mean Corpuscular Hemoglobin 29.3 pg (26-34); Mean Corpuscular Volume 96.6 fl (80-100); Mean Platelet Volume 12.1 fl (7.4-10.4); Monocytes Absolute Auto 0.8 K/mm3 (0.1-0.6); Monocytes Percent Auto 8.2 % (2.6-8.5); Neutrophils Absolute Auto 8.2 K/mm3 (1.3-6.7); Neutrophils Percent Auto 83.1 % (45.5-73.1); Platelet Count Result 240 k/mm3 (150-375); Red Blood Count 3.82 M/mm3 (4.2-5.4); Red Cell Distribution Width 14.5 % (11.5-14.5); White Blood Count 9.9 K/mm3 (4.5-10.0)
[2022-05-09 07:02] LABS: Alveolar/Arterial O2 Gradient 309.4 mmHg; Base Excess ABG -1.9 mEq/l (+/-2.0); Carboxyhemoglobin 0.7 % THb (0-2.0); Fractional Inspired Oxygen 60 %; HCO3 ABG 24.6 mEq/l (22.0-26.0); Methemoglobin ABG 0.3 %THb (0-1.5); NT Pro B Type Natriuretic Pept 330 pg/mL (5-100); Oxygen Content ABG 15.1 %vol (16.0-22.0); Oxygen Saturation ABG 90.6 % (95.0-100.0); Oxyhemoglobin 88.7 % THb (90.0-100.0); PCO2 ABG 49.2 mmHg (35.0-45.0); PO2 ABG 64.3 mmHg (80.0-100.0); PO2 FiO2 Ratio Arterial Blood 1.07 %; Reduced Hemoglobin 10.3 %THb (0-5.0); Total Hemoglobin 12.1 g/dL (12.0-18.0); Troponin I 0.015 ng/mL (0.000-0.034); pH ABG 7.316 (7.350-7.450)
[2022-05-09 07:03] LABS: Device OTHER DEVICE; Modified Allen's Test Pass; Site Drawn LEFT RADIAL
[2022-05-09 07:03] LABS: INR 1.1; Partial Thromboplastin Time 25.8 SECONDS (22.3-36.8); Prothrombin Time 13.5 Seconds (11.1-14.7)
--- NOTE | 2022-05-09 07:04 | ED.SOB ---
HPI - SOB/Dyspnea General Chief Complaint: Shortness of Breath/Dyspnea Stated Complaint: SOB Time Seen by Provider: 05/09/22 07:04 Source: patient and EMS Mode of arrival: EMS Limitations: clinical condition History of Present Illness HPI Narrative: Patient is an 82-year-old female with a history of COPD, CHF, lung cancer, presenting to the emergency department for evaluation of shortness of breath. Patient brought in from home, having increasing shortness of breath that was refractory to treatment with inhaler therapy at home. At the time of assessment, patient is on CPAP. She was given 2 duo nebs in route with improvement in her work of breathing. Patient is currently alert and oriented to person, place, to time. She is not terribly conversant, but she denies any chest or abdominal pain. She does report shortness of breath that has been worsening over the past 24 hours. She denies fever, chills, nausea or vomiting. She denies leg swelling. Patient reports cough without hemoptysis. She denies recent sick contacts. Per chart review, patient lives with her son. She has a former smoker. She is not on home oxygen. Patient was seen in this emergency department 04/09, for COPD exacerbation and able to be discharged home. History is limited secondary to the patient currently being on CPAP. Related Data Home Medications Medication Instructions Recorded Confirmed albuterol sulfate 90 mcg/actuation 2 puff inhalation Q4H PRN Wheezing 10/07/20 03/03/21 aerosol inhaler (Ventolin HFA) ferrous sulfate 325 mg (65 mg 325 mg PO DAILY 10/07/20 03/03/21 iron) tablet fluticasone furoate 200 1 inh inhalation DAILY 10/07/20 03/03/21 mcg-vilanterol 25 mcg/dose inhalation powder (Breo Ellipta) furosemide 80 mg tablet 80 mg PO DAILY 10/07/20 03/03/21 insulin lispro 100 unit/mL See Rx Instructions .Route .COMPLEX 10/07/20 03/03/21 subcutaneous pen (Humalog KwikPen (U-100) Insulin) olmesartan 40 mg tablet 40 mg PO DAILY 10/07/20 03/03/21 pantoprazole 40 mg tablet,delayed 40 mg PO QAM 10/07/20 03/03/21 release perphenazine 2 mg tablet 2 mg PO TID 10/07/20 03/03/21 rosuvastatin 10 mg tablet 10 mg PO DAILY 10/07/20 03/03/21 tiotropium bromide 18 mcg capsule 1 cap inhalation DAILY 10/07/20 03/03/21 with inhalation device (Spiriva with HandiHaler) aspirin 81 mg chewable tablet 81 mg PO DAILY 03/03/21 03/03/21 benztropine 0.5 mg tablet 0.5 mg PO HS 03/03/21 03/03/21 metoprolol succinate 25 mg 25 mg PO DAILY 03/03/21 03/03/21 tablet,extended release 24 hr hyoscyamine sulfate 0.125 mg tablet mg 09/01/21 lorazepam 0.5 mg tablet 09/01/21 ondansetron HCl 8 mg tablet 09/01/21 Allergies Allergy/AdvReac Type Severity Reaction Status Date / Time Penicillins Allergy Unknown Itching Verified 09/01/21 08:44 Review of Systems Review of Systems: CONSTITUTIONAL: Denies fever CARDIOVASCULAR: Denies chest pain RESPIRATORY: Reports cough and dyspnea GASTROINTESTINAL: Denies abdominal pain SKIN: Denies rash MUSCULOSKELETAL: Denies back pain NEUROLOGIC: Denies headache [facility] Past Medical History Medical History Chronic anemia Congestive heart failure (CHF) COPD (chronic obstructive pulmonary disease) GERD (gastroesophageal reflux disease) Hyperglycemia due to type 2 diabetes mellitus Hyperlipidemia Legally blind Lung cancer Sleep apnea Surgical History Surgical History History of bronchoscopy (~01/2021) Status post cataract surgery Family History Family History Father Cerebrovascular accident Mother Chronic bronchitis Social History Social History Social History: She lives with her son Esteban. As she smoked a half a pack of cigarettes per day from the time she was a teenager until the age of 78.
[2022-05-09] MEDS: methylPREDNISolone SOD SUCC 125 MG VIAL IV PUSH (08:26)
[2022-05-09] MEDS: SODIUM CHLORIDE 0.9% IV 500 ML 999 ML IV CONT (08:27)
[2022-05-09 09:53] LABS: Influenza A QL RT-PCR Negative (Negative); Influenza B QL RT-PCR Negative (Negative); RSV RNA, RT-PCR Negative (Negative); SARS-CoV-2 RNA PCR Negative
[2022-05-09 11:05] LABS: Lactic Acid Reflex 1.8 mmol/L (0.7-2.0)
[2022-05-09 11:14] LABS: NT Pro B Type Natriuretic Pept 401 pg/mL (5-100)
[2022-05-09] MEDS: methylPREDNISolone SOD SUCC 125 MG VIAL 60 MG IV PUSH ×3 (11:41→23:42)
[2022-05-09 12:02] LABS: Add Urine Microscopic? YES; Appearance Urine Slightly Cloudy (Clear); Bilirubin Urine Negative (Negative); Blood Urine Negative (Negative); Color Urine Yellow (Yellow); Glucose Urine UA 2+ mg/dL (Negative); Ketones Urine Trace mg/dL (Negative); Leukocyte Esterase Ur Negative LEU/UL (Negative); Nitrate Urine Negative (Negative); Protein Urine Trace mg/dL (Negative); Specific Grav Ur >= 1.030 (1.001-1.035); Urobilinogen Urine 0.2 mg/dL (<2.0)
[2022-05-09 12:17] LABS: Hyaline Casts Urine 20-29 /lpf; Mucus Urine Heavy /lpf; Squamous Epithelial Cell Urine Occasional /hpf (Few)
--- NOTE | 2022-05-09 12:38 | PM.IMHP ---
H&P: HPI History of Present Illness Date/Time: 05/09/22 12:38 Chief Complaint: Shortness of breath Narrative: This is an 82-year-old female patient who has a history of COPD, CHF and lung cancer. She came to the emergency room to be evaluated for shortness of breath. The patient was brought from home due to increasing shortness of breath. The patient is currently on a BiPAP machine and is not able to give me any information. The patient was given 2 nebulizer treatments EN route without any improvement in her breathing effort. In the emergency room she was alert orientated to person place and time. The patient was not able to answer questions for me. She denied to the ED provider that she had any fever chills or any vomiting. She denied any sick contacts. She does not use oxygen at home. The patient is currently on a BiPAP machine with settings 12/5 with a rate of 14 and 50% FiO2. The patient was started on IV fluids, Solu-Medrol, azithromycin Rocephin and vancomycin in the emergency room. H&H is 11.2 and 36.9 which is above her baseline. D-dimer 1.10. ABGs initially 7.316 for the pH CO2 was 49.2 and PO2 64.3. Repeat ABGs pH 7.312 CO2 47.6 PO2 66.9. She is found to be negative for influenza a B COVID and RSV. 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 Small pleural effusions with worsening on the left. Chest CTA was read as the followingNo evidence of pulmonary embolus, aortic dissection, or aortic aneurysm. Extensive left perihilar consolidation extending to the left upper lobe is similar to prior exam. Diagnostic considerations include post radiation change and/or treated tumor versus pneumonia. Residual active malignancy cannot be excluded. Moderate left pleural effusion and small right pleural effusion. Stable right adrenal nodule. The patient is being admitted to inpatient status on the date of service of 05/09/2022. Review of Systems Review of Systems: See HPI All systems reviewed & are unremarkable except as noted in HPI and below Constitutional: Constitutional: Reports as per HPI and Reports no additional constitutional complaints Eyes: Eyes: Reports as per HPI and Reports no additional eye complaints ENT: Reports system reviewed and no additional complaints, except as documented and Reports Normal hearing present Cardiovascular: Cardiovascular: Reports no additional cardiovascular complaints Respiratory: Respiratory: Reports no additional respiratory complaints and Reports no additional respiratory complaints Gastrointestinal: Gastrointestinal: Reports as per HPI and Reports no additional gastrointestinal complaints Musculoskeletal: Musculoskeletal: Reports no additional musculoskeletal complaints Integumentary/Breasts: Skin/Breast: Reports system reviewed and no additional complaints, except as docu and Reports as per HPI Neurologic: Reports system reviewed and no additional complaints, except as documented, Reports as per HPI and Reports Normal hearing present Psychiatric: Psychiatric: Reports no additional psychiatric complaints and Reports as per HPI Endocrine: Endocrine: Reports no additional endocrine complaints Hematologic/Lymphatic: Hematologic/Lymphatic: Reports no additional hematologic/lymphatic complaints Allergic/Immunologic: Allergic/Immunologic: Reports no additional allergic/immunologic complaints [facility] Past Medical History Medical History Chronic anemia Congestive heart failure (CHF) COPD (chronic obstructive pulmonary disease) GERD (gastroesophageal reflux disease) Glaucoma Hyperglycemia due to type 2 diabetes mellitus Hyperlipidemia Hypertension Legally blind Lung cancer Sleep apnea Surgical History Surgical History History of bronchoscopy (~01/2021
[2022-05-09 12:49] LABS: Alveolar/Arterial O2 Gradient 163.6 mmHg; Base Excess ABG -2.8 mEq/l (+/-2.0); Carboxyhemoglobin 0.6 % THb (0-2.0); Fractional Inspired Oxygen 40 %; HCO3 ABG 23.5 mEq/l (22.0-26.0); Methemoglobin ABG 0.1 %THb (0-1.5); Oxygen Content ABG 14.5 %vol (16.0-22.0); Oxygen Saturation ABG 91.5 % (95.0-100.0); Oxyhemoglobin 90.3 % THb (90.0-100.0); PCO2 ABG 47.6 mmHg (35.0-45.0); PO2 ABG 66.9 mmHg (80.0-100.0); PO2 FiO2 Ratio Arterial Blood 1.67 %; Site Drawn LEFT RADIAL; Total Hemoglobin 11.4 g/dL (12.0-18.0); pH ABG 7.312 (7.350-7.450)
[2022-05-09 12:50] LABS: Device NON-INVASIVE VENT; Non-Invasive Expiratory Pressure 5 CMH2O; Non-Invasive Inspiratory Pressure 12 CMH2O; Non-Invasive Vent Rate 14 /MIN
[2022-05-09] MEDS: ALBUTEROL SULFATE NEB 2.5 MG/3 ML INH 5 MG INHALATION ×2 (12:58→20:12)
[2022-05-09] MEDS: IPRATROPIUM BR 0.02% INH SOLN 0.5 MG/2.5 ML VIAL INHALATION ×2 (12:58→20:12)
--- NOTE | 2022-05-09 15:36 | ADMGEN ---
This patient, Patricia Sequeira, was admitted to IMU Room 210-01. Patient/family oriented to hospital policies and general routines including ID bracelet, bed and alarms, visiting hours, pain management, procedures, bathroom and other care routines, personal items, smoking policy, room service/diet, and visiting hours. Information on how to activate the Rapid Response Team has been discussed. Patient/Family are encouraged to report perceived risks to care and to ask questions if they do not understand what they are told or what they should do.
[2022-05-09] MEDS: PERFLUTREN LIPID MICROSPHERES 1.5 ML VIAL DILUTED TO 10 ML TOTAL VOLUME IV PUSH (16:43)
--- NOTE | 2022-05-09 16:44 | IVDEFINITY ---
Prior to administration of IV Definity the patient was educated on the risks and benefits of the imaging enhancing agent including potential adverse side effects. The patient verbalized understanding. Allergies were verified. No exclusion criteria were identified and at least one of the following inclusion criteria were met: 1) physician request, 2) patient technically difficult to image (per the [place] [employer]ocardi[employer] guidelines of two or more segments not discernable within the apical view), or 3) questionable left ventricular function. ?
[2022-05-09 18:15] LABS: Glucose Point of Care 365 mg/dl (65-105)
[2022-05-09] MEDS: INSULIN ASPART (*BKC) 100 UNITS/ML SUB-Q (18:15)
[2022-05-09] MEDS: WATER FOR IRRIGATION, STERILE 1,000 ML BOTTLE 1000 ML (19:46)
[2022-05-09] MEDS: LORazepam INJ (*CRX) 2 MG/ML VIAL 0.5 MG IV PUSH ×2 (20:24→23:48)
[2022-05-09 20:27] LABS: Hemoglobin A1C 9.3 % (<5.7)
[2022-05-09 23:50] LABS: Glucose Point of Care 343 mg/dl (65-105)
[2022-05-10] VITALS (15 sets, daily range): BP systolic 111–137; BP diastolic 58–79; PULSE 102–126; RESP 18–30; TEMP 36.6–37.1; O2SAT 87–100
[2022-05-10] MEDS: INSULIN ASPART (*BKC) 100 UNITS/ML 6 UNITS SUB-Q (00:11)
[2022-05-10] MEDS: BENZTROPINE MESYLATE 0.5 MG TABLET PO (02:08)
[2022-05-10] MEDS: PERPHENAZINE 2 MG TABLET 6 MG PO ×2 (02:08→08:21)
[2022-05-10] MEDS: MORPHINE SULFATE (*CRX) 2 MG/ML INJ IV PUSH ×2 (02:14→08:20)
[2022-05-10] MEDS: IPRATROPIUM BR 0.02% INH SOLN 0.5 MG/2.5 ML VIAL INHALATION ×3 (03:45→14:02)
[2022-05-10] MEDS: ALBUTEROL SULFATE NEB 2.5 MG/3 ML INH 5 MG INHALATION ×3 (03:45→14:02)
[2022-05-10] MEDS: LORazepam (*CRX) 0.5 MG TABLET PO ×2 (04:05→08:20)
[2022-05-10] MEDS: methylPREDNISolone SOD SUCC 125 MG VIAL 60 MG IV PUSH ×2 (05:03→13:10)
[2022-05-10 05:23] LABS: Lactic Acid Reflex 2.1 mmol/L (0.7-2.0)
[2022-05-10 05:28] LABS: Alanine Aminotransferase 46 U/L (6-35); Albumin Level 4.2 g/dL (3.5-5.1); Alkaline Phosphatase 81 U/L (38-126); Anion Gap 7 mmol/L (8-16); Aspartate Amino Transferase 33 U/L (14-36); Bilirubin,Total 0.6 mg/dL (0.2-1.3); Blood Urea Nitrogen 12 mg/dL (7-17); CRP 0.8 mg/dL (<1.0); Carbon Dioxide 25 mmol/L (22-30); Chloride 106 mmol/L (98-107); Estimated CRCL calculation 47 ml/min; Estimated Glomerular Filt Rate > 60; Glucose 263 mg/dL (65-110); Phosphorus 2.9 mg/dL (2.5-4.5); Potassium 4.3 mmol/L (3.4-5.0); Sodium 138 mmol/L (137-145)
[2022-05-10 06:02] LABS: Thyroid Stimulating Hormone Reflex 0.095 uIU/mL (0.465-4.68)
[2022-05-10 06:43] LABS: Free T4 Free Thyroxine Reflex 1.41 ng/dL (0.78-2.19)
[2022-05-10 07:27] LABS: Total Triiodothyronine (T3) 0.84 NG/ML (0.97-1.69)
[2022-05-10 08:09] LABS: Reflex Lactic Acid Yes or No Add Lactic
[2022-05-10 08:15] LABS: Glucose Point of Care 358 mg/dl (65-105)
[2022-05-10] MEDS: PANTOPRAZOLE 40 MG TABLET PO (08:22)
[2022-05-10] MEDS: FLUTICASONE PROPIONATE 0.05% NA SPR 16 GM BTL (*BKC) 1 SPRAY NASAL (08:22)
[2022-05-10] MEDS: INSULIN ASPART (*BKC) 100 UNITS/ML SUB-Q ×2 (08:37→17:32)
--- NOTE | 2022-05-10 08:37 | PM.IMPN ---
Progress Note: A&P Assessment and Plan (1) Pneumonia: Code(s): J18.9 - Pneumonia, unspecified organism Status: Acute Assessment and Plan: Continue antibiotics (2) Acute exacerbation of chronic obstructive airways disease: Code(s): J44.1 - Chronic obstructive pulmonary disease with (acute) exacerbation Status: Acute Assessment and Plan: Continue steroids and nebulizers and inhalers (3) Congestive heart failure (CHF): Qualifiers: Heart failure chronicity: unspecified Heart failure type: unspecified Qualified Code(s): I50.9 - Heart failure, unspecified Code(s): I50.9 - Heart failure, unspecified Status: Chronic Assessment and Plan: Echo results pending (4) Glaucoma: Code(s): H40.9 - Unspecified glaucoma Status: Acute (5) Hyperglycemia due to type 2 diabetes mellitus: Qualifiers: Diabetes mellitus medical terminologist insulin use: unspecified medical terminologist insulin use status Qualified Code(s): E11.65 - Type 2 diabetes mellitus with hyperglycemia Code(s): E11.65 - Type 2 diabetes mellitus with hyperglycemia Status: Acute Assessment and Plan: Accu-Cheks with sliding scale insulin (6) Hyperlipidemia: Code(s): E78.5 - Hyperlipidemia, unspecified Status: Acute Assessment and Plan: Statin (7) Hypertension: Code(s): I10 - Essential (primary) hypertension Status: Acute Assessment and Plan: -continue with metoprolol (8) Lung cancer: Qualifiers: Laterality: unspecified laterality Lung location: unspecified part of lung Qualified Code(s): C34.90 - Malignant neoplasm of unspecified part of unspecified bronchus or lung Code(s): C34.90 - Malignant neoplasm of unspecified part of unspecified bronchus or lung Status: Acute Assessment and Plan: Family has opted for hospice care Plan DVT prophylaxis with SCDs GI prophylaxis not indicated Code status DNR Subjective Date/time seen: 05/10/22 08:38 Interval history: Patient confused and pulling at cords, anxious, seems uncomfortable. Review of Systems Review of Systems: ROS unobtainable: Yes unobtainable due to mental status Exam Narrative: General: Appears uncomfortable, anxious, confused HEENT: Atraumatic, normocephalic, mucous membranes moist CV: Regular rate and rhythm, S1, S2 Lungs: Diminished throughout with scattered wheezes Abdomen: Soft, nontender, nondistended Extremities: Normal to inspection Skin: No rashes noted, no lesions or wounds seen Objective Data Vital Signs Vital Signs: Vital Signs - 24 hr 05/09/22 12:15 05/09/22 13:00 05/09/22 14:51 Temperature Pulse Rate 112 H 110 H 104 H Respiratory Rate 19 21 H Blood Pressure Pulse Oximetry 98 94 Oxygen Delivery BiPAP Nasal Cannula Oxygen Flow Rate 6 05/09/22 11:00 05/09/22 11:15 05/09/22 11:30 Temperature Pulse Rate 114 H 111 H 109 H Respiratory Rate 27 H 31 H 22 H Blood Pressure Pulse Oximetry 98 97 95 Oxygen Delivery Oxygen Flow Rate 05/09/22 11:31 05/09/22 11:45 05/09/22 11:47 Temperature Pulse Rate 108 H 110 H 110 H Respiratory Rate 38 H 21 H 32 H Blood Pressure 151/78 H 165/100 H Pulse Oximetry 98 97 Oxygen Delivery Oxygen Flow Rate 05/09/22 12:00 05/09/22 12:02 05/09/22 12:15 Temperature Pulse Rate 110 H 110 H 113 H Respiratory Rate 18 19 19 Blood Pressure 115/97 H Pulse Oximetry 99 99 99 Oxygen Delivery Oxygen Flow Rate 05/09/22 12:16 05/09/22 12:38 05/09/22 12:45 Temperature Pulse Rate 112 H Respiratory Rate 19 Blood Pressure 131/89 Pulse Oximetry 99 99 94 Oxygen Delivery Oxygen Flow Rate 05/09/22 13:00 05/09/22 13:15 05/09/22 13:30 Temperature Pulse Rate 116 H Respiratory Rate 24 H Blood Pressure 131/60 Pulse Oximetry 94 100 99 Oxygen Delivery Oxygen Flow Rate 05/09/22 13:31 05/09/22 13:
[2022-05-10 08:48] LABS: Hematocrit 34.2 % (37.0-47.0); Hemoglobin 10.5 g/dL (12.0-15.0); Immature Granulocyte Absolute 0.03 K/mm3 (0.00-0.031); Immature Granulocyte Percent A 0.5 % (0-0.5); Lactic Acid 1.3 mmol/L (0.7-2.0); Lymphocytes Percent Auto 3.2 % (18.3-44.2); Mean Corpuscular HGB Conc 30.7 g/dl (32-36); Mean Corpuscular Hemoglobin 29.1 pg (26-34); Mean Corpuscular Volume 94.7 fl (80-100); Mean Platelet Volume 11.5 fl (7.4-10.4); Monocytes Absolute Auto 0.2 K/mm3 (0.1-0.6); Monocytes Percent Auto 3.5 % (2.6-8.5); Neutrophils Absolute Auto 5.8 K/mm3 (1.3-6.7); Neutrophils Percent Auto 92.8 % (45.5-73.1); Platelet Count Result 225 k/mm3 (150-375); Red Blood Count 3.61 M/mm3 (4.2-5.4); White Blood Count 6.3 K/mm3 (4.5-10.0)
[2022-05-10 11:45] LABS: Glucose Point of Care 405 mg/dl (65-105)
[2022-05-10] MEDS: MORPHINE SULFATE (*CRX) 2 MG/ML INJ 4 MG IV PUSH ×2 (12:28→16:20)
[2022-05-10] MEDS: INSULIN ASPART (*BKC) 100 UNITS/ML 10 UNITS SUB-Q (12:31)
[2022-05-10] MEDS: LORazepam INJ (*CRX) 2 MG/ML VIAL 1 MG IV PUSH ×2 (13:10→17:23)
[2022-05-10 17:10] LABS: Glucose Point of Care 268 mg/dl (65-105)
--- NOTE | 2022-05-29 15:55 | PM.DS ---
DS: Admitting Diagnosis Discharge Date 05/10/22 Admitting Diagnosis Shortness of breath DS: Discharge Diagnosis Discharge Diagnosis (1) Pneumonia: Code(s): J18.9 - Pneumonia, unspecified organism Status: Acute Assessment and Plan: Continue antibiotics (2) Acute exacerbation of chronic obstructive airways disease: Code(s): J44.1 - Chronic obstructive pulmonary disease with (acute) exacerbation Status: Acute Assessment and Plan: Continue steroids and nebulizers and inhalers (3) Congestive heart failure (CHF): Qualifiers: Heart failure chronicity: unspecified Heart failure type: unspecified Qualified Code(s): I50.9 - Heart failure, unspecified Code(s): I50.9 - Heart failure, unspecified Status: Chronic Assessment and Plan: Echo results pending (4) Glaucoma: Code(s): H40.9 - Unspecified glaucoma Status: Acute (5) Hyperglycemia due to type 2 diabetes mellitus: Qualifiers: Diabetes mellitus terminal manager insulin use: unspecified terminal manager insulin use status Qualified Code(s): E11.65 - Type 2 diabetes mellitus with hyperglycemia Code(s): E11.65 - Type 2 diabetes mellitus with hyperglycemia Status: Acute Assessment and Plan: Accu-Cheks with sliding scale insulin (6) Hyperlipidemia: Code(s): E78.5 - Hyperlipidemia, unspecified Status: Acute Assessment and Plan: Statin (7) Hypertension: Code(s): I10 - Essential (primary) hypertension Status: Acute Assessment and Plan: -continue with metoprolol (8) Lung cancer: Qualifiers: Laterality: unspecified laterality Lung location: unspecified part of lung Qualified Code(s): C34.90 - Malignant neoplasm of unspecified part of unspecified bronchus or lung Code(s): C34.90 - Malignant neoplasm of unspecified part of unspecified bronchus or lung Status: Acute Assessment and Plan: Family has opted for hospice care Plan DVT prophylaxis with SCDs GI prophylaxis not indicated Code status DNR DS: Summary Hospital Course Hospital Course: 82-year-old female patient who has a history of COPD, CHF and lung cancer.? She came to the emergency room to be evaluated for shortness of breath.? The patient was brought from home due to increasing shortness of breath.? The patient is currently on a BiPAP machine and is not able to give me any information. In the emergency room she was placed on a BiPAP machine with settings 12/5 with a rate of 14 and 50% FiO2.? The patient was started on IV fluids, Solu-Medrol, azithromycin Rocephin and vancomycin in the emergency room.? H&H is 11.2 and 36.9 which is above her baseline.? D-dimer 1.10.? ABGs initially 7.316 for the pH CO2 was 49.2 and PO2 64.3.? Repeat ABGs pH 7.312 CO2 47.6 PO2 66.9.? She is found to be negative for influenza a B COVID and RSV. Antibiotics were continued. Her condition declined rapidly and she refused intubation. Therefore she was made hospice care and discharged to inpatient hospice. Time Spent with Patient Time attestation: Total time spent providing and/or coordinating discharge services: Exam Narrative: General: Appears uncomfortable, anxious, confused HEENT: Atraumatic, normocephalic, mucous membranes moist CV: Regular rate and rhythm, S1, S2 Lungs: Diminished throughout with scattered wheezes Abdomen: Soft, nontender, nondistended Extremities: Normal to inspection Skin: No rashes noted, no lesions or wounds seen Discharge Plan Discharge Consulting providers: Aruna Antunez ; Branden Samleron ; Bridgette Sandoval ; Antonio Bro V. ; Po Cruz Discharging Clinician: Lisa Fam Anticipated Discharge Date/Time: 05/10/22 17:46 Patient Disposition: Hospice [facility] Inpatient Patient Instructions: Heart Failure (GEN) Stand Alone Forms: General Discharge Information Date of admission: 05/09/22 08:47 Primary Care
== END 2022-05-10 17:46 | disposition hospice, inpatient (51) | DRG 194 ==
LOC: ANHED 08:47 → ANHIMU 14:00
PROVIDERS: Emergency Medicine; Nurse Practitioner; Admitting Provider Chiropractor; Emergency Provider Emergency Medicine; Visit Provider Student in an Organized Health Care Education/Training Program
DX: J18.9 Pneumonia, unspecified organism (principal); J44.0 Chronic obstructive pulmonary disease with (acute) lower respiratory infection; J44.1 Chronic obstructive pulmonary disease with (acute) exacerbation; C34.90 Malignant neoplasm of unspecified part of unspecified bronchus or lung; I11.0 Hypertensive heart disease with heart failure; I50.9 Heart failure, unspecified; H40.9 Unspecified glaucoma; Z20.822 Contact with and (suspected) exposure to COVID-19; E11.65 Type 2 diabetes mellitus with hyperglycemia; E78.5 Hyperlipidemia, unspecified; D64.9 Anemia, unspecified; K21.9 Gastro-esophageal reflux disease without esophagitis; H54.8 Legal blindness, as defined in USA; G47.30 Sleep apnea, unspecified; Z66 Do not resuscitate; Z87.891 Personal history of nicotine dependence
CPT/HCPCS: 36415; 36600; 51701; 51702; 70450; 71045; 71275; 80053; 81001; 82375; 82805; 82948; 83036; 83050; 83605; 83735; 83880; 84100; 84439; 84443; 84480; 84484; 85025; 85380; 85610; 85730; 86140; 87040; 87637; 93005; 94002; 94640; A9270; C8929; J0456; J0696; J1815; J2060; J2270; J2930; J3370; J7040; Q9957; Q9967

== ENCOUNTER 2022-05-10 17:47 | HOS | payer OTHER, MEDICARE, MEDICAID, SELFPAY ==
[2022-05-10 18:07] VITALS: BMI 38.3
[2022-05-10 18:45] VITALS: BP 130/69; PULSE 105; RESP 24; TEMP 36; O2SAT 100
[2022-05-10] MEDS: MORPHINE SULFATE INJ (*CRX) 50 MG in SODIUM CHLORIDE 0.9% IV 95 ML IV CONT (19:00)
[2022-05-10] MEDS: diazePAM INJ (*CRX) 10 MG/2 ML SYRINGE 5 MG IV PUSH (20:40)
[2022-05-10] MEDS: MORPHINE SULFATE (*CRX) 4 MG/ML INJ IV PUSH (20:40)
[2022-05-11] MEDS: diazePAM INJ (*CRX) 10 MG/2 ML SYRINGE 5 MG IV PUSH ×3 (00:59→10:41)
--- NOTE | 2022-05-11 01:06 | PC.NURSE ---
This patient, Patricia Sequeira, was transferred to [facility] on 05/10/22 at 2350. Personal belongings sent with patient. Report given to Leticia DE LEÓN. Appropriate documentation sent with patient.
[2022-05-11 01:08] VITALS: O2SAT 100
[2022-05-11] MEDS: MORPHINE SULFATE (*CRX) 4 MG/ML INJ IV PUSH (03:27)
--- NOTE | 2022-05-11 11:52 | PC.NURSE ---
Sharon nurse here. Orders from MD to do pleasure feeds. Start with clears.
[2022-05-11 14:56] VITALS: BP 130/65; PULSE 100; RESP 20; TEMP 36.8; O2SAT 90
--- NOTE | 2022-05-11 17:03 | PM.IMHP ---
H&P: HPI History of Present Illness Date/Time: 05/11/22 17:03 Chief Complaint: uncontrolled dyspnea and discomfort Narrative: This from fortunate 82-year-old female with history of lung cancer COPD and CHF presented the hospital May 09 for worsening shortness of breath. ABGs initially 7.316 for the pH CO2 was 49.2 and PO2 64.3.? Repeat ABGs pH 7.312 CO2 47.6 PO2 66.9.? She is found to be negative for influenza a B COVID and RSV.? Chest x-ray was read as worsened diffuse lung disease consistent pulmonary edema versus pneumonia and left-sided primary bronchogenic carcinoma and radiation pneumonitis.? Small pleural effusions with worsening on the left.? Chest CTA was read as no evidence of pulmonary embolus, aortic dissection, or aortic aneurysm. She failed to improve with vancomycin Rocephin azithromycin. She did not tolerate BiPAP well. She was very restless and dyspneic. Because of this, her dance days, her poor functional status, and her multiple comorbidities, family opted for inpatient hospice service. Review of Systems Review of Systems: ROS unobtainable: Yes unobtainable due to medical condition [facility] Past Medical History Medical History Chronic anemia Congestive heart failure (CHF) COPD (chronic obstructive pulmonary disease) GERD (gastroesophageal reflux disease) Glaucoma Hyperglycemia due to type 2 diabetes mellitus Hyperlipidemia Hypertension Legally blind Lung cancer Sleep apnea Surgical History Surgical History History of bronchoscopy (~01/2021) Status post cataract surgery Family History Family History Father Cerebrovascular accident Mother Chronic bronchitis Social History Social History Social History: She lives with her son Esteban. As she smoked a half a pack of cigarettes per day from the time she was a teenager until the age of 78. She quit smoking 3 years ago. She denies any significant alcohol use. She denies any illicit substance use. 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 Surrogate decision maker: Esteban (son) and Lisa (daughter) Smoking packs per day: 0.5 Smoking cigarettes per day: 10.0 Years smoked: 64 Smoking pack-years: 32.00 Smoking status: Former smoker Smoking end date: 10/07/18 Alcohol intake: unknown Substance use: unknown Gender identity (if verbalized by the patient): Female Spiritual care concerns: No Meds Home Medications and Allergies Home Medications Medication Instructions Recorded Confirmed Type albuterol sulfate 90 mcg/actuation 2 puff inhalation Q4H PRN Wheezing 10/07/20 05/10/22 History aerosol inhaler (Ventolin HFA) fluticasone furoate 200 1 inh inhalation DAILY 10/07/20 05/10/22 History mcg-vilanterol 25 mcg/dose inhalation powder (Breo Ellipta) insulin lispro 100 unit/mL See Rx Instructions .Route .COMPLEX 10/07/20 05/10/22 History subcutaneous pen (Humalog KwikPen (U-100) Insulin) pantoprazole 40 mg tablet,delayed 40 mg PO QAM 10/07/20 05/10/22 History release perphenazine 2 mg tablet 6 mg PO TID 10/07/20 05/10/22 History fluticasone propionate 50 1 spray intranasal Q12HR #1 device 10/10/20 05/10/22 Rx mcg/actuation nasal spray,suspension tramadol 50 mg tablet 50 mg PO Q4H PRN pain #24 tabs 11/23/20 05/10/22 Rx benztropine 0.5 mg tablet 0.5 mg PO HS 03/03/21 05/10/22 History hyoscyamine sulfate 0.125 mg tablet 0.125 mg sublingual Q4H PRN 09/01/21 05/10/22 History Secretions lorazepam 0.5 mg tablet 0.5 mg PO Q2H PRN Anxiety or 09/01/21 05/10/22 History sedation ondansetron HCl 8 mg tablet 8 mg PO Q8H PRN Nausea 09/01/21 05/10/22 History Guaifenesin DM 10 ml PO Q4H PRN Cough 05/09/22 05/10/22 History bisacodyl 10 mg rectal suppository 10 mg RECTAL DAILY PRN Constipati
[2022-05-11] MEDS: MORPHINE SULFATE (*CRX) 4 MG/ML INJ IM (17:46)
[2022-05-11] MEDS: LORazepam (*CRX) 2 MG/ML 30 ML ORAL CONCENTRATE 1 MG SUBLINGUAL ×4 (18:35→22:51)
--- NOTE | 2022-05-11 19:04 | PC.NURSE ---
Call made to . Pt pulled out IV. Pt is a difficult stick. Unable to see anything on the vein finder. Ok to change medications to IM, SL, and rectally. Changes made and double confirmed with .
--- NOTE | 2022-05-11 19:23 | PC.NURSE ---
called pharmacy to change IM morphine order to SL
[2022-05-11 20:00] VITALS: O2SAT 90
--- NOTE | 2022-05-11 20:29 | PC.NURSE ---
called about sL morphine if stocked in [facility]
[2022-05-11] MEDS: MORPHINE SULFATE ORAL CONC SOL (*CRX) 10 MG/0.5 ML SYRINGE 8 MG SUBLINGUAL (20:49)
--- NOTE | 2022-05-11 21:10 | PC.NURSE ---
pt remains restless on sl morphine 4mg q4h scheduled and ativan po sl 1mg prn q4hrs, requesting additional comfort care regimen for pt. called bill. awaiting call back from hospice nurse.
--- NOTE | 2022-05-11 21:35 | PC.NURSE ---
new hospice order per MD Devi: ativan sl scheduled 1mg q4hrs ativan sl prn 2hr 1 mg morphine 12mg SL q4h scheduled morphine 12 mg prn q1h pt restless, air hunger, o2 sat 83% RR 70 MD Devi updated. ok'd to resume IV morphine and diazepam order if IV restart successful per MD Devi
--- NOTE | 2022-05-11 21:39 | PC.NURSE ---
informed pharmacist Javire of new hospice orders.
[2022-05-11] MEDS: MORPHINE SULFATE ORAL CONC SOL (*CRX) 10 MG/0.5 ML SYRINGE 12 MG SUBLINGUAL ×3 (21:56→23:45)
[2022-05-12] MEDS: LORazepam (*CRX) 2 MG/ML 30 ML ORAL CONCENTRATE 1 MG SUBLINGUAL ×2 (00:48→01:54)
[2022-05-12 01:02] VITALS: O2SAT 96
[2022-05-12 01:11] VITALS: BP 133/63; PULSE 107; RESP 20; TEMP 36.5; O2SAT 100
[2022-05-12 01:20] VITALS: PULSE 107; RESP 20; O2SAT 100
[2022-05-12] MEDS: MORPHINE SULFATE ORAL CONC SOL (*CRX) 10 MG/0.5 ML SYRINGE 12 MG SUBLINGUAL (01:54)
--- NOTE | 2022-05-12 02:05 | PC.NURSE ---
restarting morphine drip per MD Devi orders pharmacy informed dc ativan and morphine sl order and restart prior IV morphine and diazepam
[2022-05-12] MEDS: MORPHINE SULFATE INJ (*CRX) 50 MG in SODIUM CHLORIDE 0.9% IV 95 ML IV CONT (02:17)
[2022-05-12] MEDS: diazePAM INJ (*CRX) 10 MG/2 ML SYRINGE 5 MG IV PUSH ×4 (03:12→17:15)
--- NOTE | 2022-05-12 05:37 | PC.NURSE ---
called MD Devi pt restless again N.o increase morphine drip to 4mg /hr, schedule diazepam q6hrs, diazepam prn q3hrs, and morphine 4mg IV push prn q1h
[2022-05-12] MEDS: MORPHINE SULFATE INJ (*CRX) 50 MG in SODIUM CHLORIDE 0.9% IV 95 ML 8 MG IV CONT ×2 (05:58→17:16)
[2022-05-12 08:25] VITALS: O2SAT 100
--- NOTE | 2022-05-12 12:21 | PM.IMPN ---
Progress Note: A&P Assessment and Plan (1) Palliative care encounter: Code(s): Z51.5 - Encounter for palliative care Status: Acute Assessment and Plan: Meets inpatient hospice criteria due to requiring continuous IV morphine for control of dyspnea and discomfort Remainder of palliative regimen as ordered 05/11 lost IV access overnight and briefly on sc and sl meds, now doing better after IV access re-established 05/11 Morphine 4 mg/hr and diazepam 5mg q 6 hr scheduled (2) Lung cancer: Qualifiers: Laterality: unspecified laterality Lung location: unspecified part of lung Qualified Code(s): C34.90 - Malignant neoplasm of unspecified part of unspecified bronchus or lung Code(s): C34.90 - Malignant neoplasm of unspecified part of unspecified bronchus or lung Status: Acute (3) Acute hypercapnic respiratory failure: Code(s): J96.02 - Acute respiratory failure with hypercapnia Status: Acute (4) Diabetes mellitus with hyperglycemia: Qualifiers: Diabetes mellitus type: type 2 Diabetes mellitus group home insulin use: with terminal computer operator use Qualified Code(s): E11.65 - Type 2 diabetes mellitus with hyperglycemia; Z79.4 - medical terminologist (current) use of insulin Code(s): E11.65 - Type 2 diabetes mellitus with hyperglycemia Status: Acute (5) Congestive heart failure (CHF): Qualifiers: Heart failure chronicity: unspecified Heart failure type: unspecified Qualified Code(s): I50.9 - Heart failure, unspecified Code(s): I50.9 - Heart failure, unspecified Status: Chronic (6) COPD (chronic obstructive pulmonary disease): Qualifiers: COPD type: unspecified COPD Qualified Code(s): J44.9 - Chronic obstructive pulmonary disease, unspecified Code(s): J44.9 - Chronic obstructive pulmonary disease, unspecified Status: Chronic Subjective Date/time seen: 05/12/22 12:21 Interval history: Much more comfortable since dose adjustment this AM at around 5:30 Review of Systems Review of Systems: ROS unobtainable: Yes unobtainable due to medical condition Exam Narrative: Chronically ill-appearing elderly obese female who is lying in her hospital bed. Neck without JVD. Chest coarse breath sounds throughout. Scattered rhonchi. Heart regular rate no audible murmur distant heart sounds. Abdomen protuberant but soft hypoactive bowel sounds. Extremities no edema. Musculoskeletal without gross deformity visual inspection. Neurologic cranial nerves symmetric to visual inspection. Objective Data Vital Signs Vital Signs: Vital Signs - 24 hr 05/11/22 14:56 05/11/22 20:00 05/12/22 01:02 Temperature 98.2 F Pulse Rate 100 Respiratory Rate 20 Blood Pressure 130/65 Pulse Oximetry 90 90 96 Oxygen Delivery High Flow Nasal Cannula Oxygen Flow Rate 5 05/12/22 01:11 05/12/22 01:20 05/12/22 08:25 Temperature 97.7 F Pulse Rate 107 H 107 H Respiratory Rate 20 20 Blood Pressure 133/63 Pulse Oximetry 100 100 100 Oxygen Delivery High Flow Nasal Cannula High Flow Nasal Cannula Oxygen Flow Rate 5 5 Intake/Output Intake/Output: Intake & Output 05/09/22 05/10/22 05/11/22 05/12/22 23:59 23:59 23:59 23:59 Intake Total 0 100 Output Total 500 Balance -500 100 Meds/Results Medications: Active Medications Generic Name Dose Route Start Last Admin Trade Name Freq PRN Reason Stop Dose Admin Acetaminophen 650 mg 05/10/22 18:05 Acetaminophen 650 Mg Suppository RECTAL Q4H PRN Fever Artificial Tears 1 drop 05/10/22 18:04 Artificial Tears Ophth Soln 15 Ml Bottle EACH EYE Q4H PRN Dry Eye(s) Atropine Sulfate 2 drop 05/11/22 18:56 Atropine Sulfate 1% Ophth Soln 5 Ml Bottle SUBLINGUAL Q4H PRN Secretions Bisacodyl 10 mg 05/10/22 18:05 Bisacodyl 10 Mg Suppository RECTAL DAILY PRN Constipation Diazepam 5 mg
[2022-05-12 20:40] VITALS: BP 126/57; PULSE 115; RESP 16; TEMP 36.7; O2SAT 92
[2022-05-13] MEDS: diazePAM INJ (*CRX) 10 MG/2 ML SYRINGE 5 MG IV PUSH ×7 (00:30→21:21)
[2022-05-13] MEDS: MORPHINE SULFATE INJ (*CRX) 50 MG in SODIUM CHLORIDE 0.9% IV 95 ML 8 MG IV CONT (05:28)
[2022-05-13] MEDS: ATROPINE SULFATE 1% OPHTH SOLN 5 ML BOTTLE 2 DROP SUBLINGUAL ×3 (05:52→21:25)
[2022-05-13] MEDS: MORPHINE SULFATE (*CRX) 4 MG/ML INJ IV PUSH (08:14)
[2022-05-13] MEDS: PROCHLORPERAZINE EDISYLATE 10 MG/2 ML VIAL IV PUSH ×2 (09:05→17:21)
[2022-05-13] MEDS: MORPHINE SULFATE (*CRX) 4 MG/ML INJ 6 MG IV PUSH ×2 (13:02→17:21)
[2022-05-13] MEDS: WATER FOR IRRIGATION, STERILE 1,000 ML BOTTLE 1000 ML (13:38)
[2022-05-13 14:12] VITALS: BP 83/37; PULSE 126; RESP 24; TEMP 35.4; O2SAT 78
[2022-05-13] MEDS: MORPHINE SULFATE INJ (*CRX) 50 MG in SODIUM CHLORIDE 0.9% IV 95 ML 12 MG IV CONT ×2 (14:45→22:21)
--- NOTE | 2022-05-13 20:20 | PM.IMPN ---
Progress Note: A&P Assessment and Plan (1) Palliative care encounter: Code(s): Z51.5 - Encounter for palliative care Status: Acute Assessment and Plan: Meets inpatient hospice criteria due to requiring continuous IV morphine for control of dyspnea and discomfort Remainder of palliative regimen as ordered 05/11 lost IV access overnight and briefly on sc and sl meds, now doing better after IV access re-established 05/11 Morphine 4 mg/hr and diazepam 5mg q 6 hr scheduled 05/13 Morphine drip increased in AM (2) Lung cancer: Qualifiers: Laterality: unspecified laterality Lung location: unspecified part of lung Qualified Code(s): C34.90 - Malignant neoplasm of unspecified part of unspecified bronchus or lung Code(s): C34.90 - Malignant neoplasm of unspecified part of unspecified bronchus or lung Status: Acute (3) Acute hypercapnic respiratory failure: Code(s): J96.02 - Acute respiratory failure with hypercapnia Status: Acute (4) Diabetes mellitus with hyperglycemia: Qualifiers: Diabetes mellitus type: type 2 Diabetes mellitus fdc insulin use: with fdc use Qualified Code(s): E11.65 - Type 2 diabetes mellitus with hyperglycemia; Z79.4 - exterminator termite (current) use of insulin Code(s): E11.65 - Type 2 diabetes mellitus with hyperglycemia Status: Acute (5) Congestive heart failure (CHF): Qualifiers: Heart failure chronicity: unspecified Heart failure type: unspecified Qualified Code(s): I50.9 - Heart failure, unspecified Code(s): I50.9 - Heart failure, unspecified Status: Chronic (6) COPD (chronic obstructive pulmonary disease): Qualifiers: COPD type: unspecified COPD Qualified Code(s): J44.9 - Chronic obstructive pulmonary disease, unspecified Code(s): J44.9 - Chronic obstructive pulmonary disease, unspecified Status: Chronic Subjective Date/time seen: 05/13/22 20:20 Tele PC Interval history: Remains comfortable after morphine drip increased this AM. Was again restless prior to dose increase. Review of Systems Review of Systems: ROS unobtainable: Yes unobtainable due to medical condition Exam Narrative: Resting comfortably. Objective Data Vital Signs Vital Signs: Vital Signs - 24 hr 05/12/22 20:40 05/13/22 08:35 05/13/22 14:12 Temperature 98.0 F 95.7 F L Pulse Rate 115 H 126 H Respiratory Rate 16 24 H Blood Pressure 126/57 L 83/37 L Pulse Oximetry 92 78 L Oxygen Delivery High Flow Nasal Cannula Oxygen Flow Rate 5 Intake/Output Intake/Output: Intake & Output 05/10/22 05/11/22 05/12/22 05/13/22 23:59 23:59 23:59 23:59 Intake Total 0 200 195 Output Total 500 300 200 Balance -500 -100 -5 Meds/Results Medications: Active Medications Generic Name Dose Route Start Last Admin Trade Name Freq PRN Reason Stop Dose Admin Acetaminophen 650 mg 05/10/22 18:05 Acetaminophen 650 Mg Suppository RECTAL Q4H PRN Fever Artificial Tears 1 drop 05/10/22 18:04 Artificial Tears Ophth Soln 15 Ml Bottle EACH EYE Q4H PRN Dry Eye(s) Atropine Sulfate 2 drop 05/11/22 18:56 05/13/22 13:03 Atropine Sulfate 1% Ophth Soln 5 Ml Bottle SUBLINGUAL 2 drop Q4H PRN Administration Secretions Bisacodyl 10 mg 05/10/22 18:05 Bisacodyl 10 Mg Suppository RECTAL DAILY PRN Constipation Diazepam 5 mg 05/12/22 05:42 05/13/22 13:02 Diazepam Inj (*Crx) 10 Mg/2 Ml Syringe IV PUSH 5 mg Q3H PRN Administration SEE COMMENTS Diazepam 5 mg 05/12/22 06:00 05/13/22 17:21 Diazepam Inj (*Crx) 10 Mg/2 Ml Syringe IV PUSH 5 mg Q6H NELLI Administration Morphine Sulfate 50 mg/ Sodium 100 mls @ 12 mls/hr 05/12/22 05:52 05/13/22 14:45 Chloride IV CONT 6 mg/hr .Q8H20M NELLI 12 mls/hr Administration 6 MG/HR Morphine Sulfate 6 mg 05/13/22 09:00 05/13/22 17:21 Morphine Sulfate (
[2022-05-13 22:00] VITALS: BP 98/42; PULSE 122; RESP 12; TEMP 36.3; O2SAT 87
--- NOTE | 2022-05-18 11:28 | P.DN_ITS ---
Discharge Summary Date and Time Date of : 05/14/22 Time of : 00:55 Provider Pronounced By: Shraddha Sandy RN and Rhianna Avila RN Probable Cause of Probable Cause of : Lung Cancer Summary Hospital Course: Admitted to inpatient hospice service due to uncontrolled dyspnea and restles sness. Medications were titrated to comfort. Mrs. Sequeira peacefully. Additional Data Confirmation of as documented by pronouncing clinician: Pupillary Reflex, Palpable Pulses, Response to Stimuli, Heart Tones and Breath Sounds Name of Provider Notified: Dr Devi Time Provider Notified: 01:21 Provider Requests Autopsy: No Family Requests Autopsy: No Outpatient Psychiatrist Notified: Yes Date [facility] Notified of : 05/14/22 Time [facility] Notified of : 01:25
== END 2022-05-14 00:55 | disposition expired | DRG 951 ==
LOC: ANHIMU 17:55 → ANH3MEDSUR 05-11 00:02
PROVIDERS: Admitting Provider Internal Medicine; Visit Provider Internal Medicine
DX: Z51.5 Encounter for palliative care (principal); J96.02 Acute respiratory failure with hypercapnia; C34.90 Malignant neoplasm of unspecified part of unspecified bronchus or lung; E11.65 Type 2 diabetes mellitus with hyperglycemia; I50.9 Heart failure, unspecified; J44.9 Chronic obstructive pulmonary disease, unspecified; D64.9 Anemia, unspecified; I11.0 Hypertensive heart disease with heart failure; K21.9 Gastro-esophageal reflux disease without esophagitis; H40.9 Unspecified glaucoma; E78.5 Hyperlipidemia, unspecified; H54.8 Legal blindness, as defined in USA; G47.30 Sleep apnea, unspecified; Z79.4 Long term (current) use of insulin; Z87.891 Personal history of nicotine dependence; E66.9 Obesity, unspecified; Z68.38 Body mass index [BMI] 38.0-38.9, adult
CPT/HCPCS: A9270; J0780; J2270; J3360